=== PATIENT | female | born 1945 | race Caucasian/White ===

== ENCOUNTER 2019-08-24 11:43 | Emergency (ER) | payer MEDICARE, SELFPAY ==
--- NOTE | ~2019-08-24 | XR_ITS ---
EXAMINATION: XR chest 2V 08/24/2019 12:51 INDICATION: Shortness of breath and cough PROCEDURE: PA and lateral views of the chest COMPARISON: Comparison to multiple prior studies sequentially, with oldest reviewed study dated 09/2013. FINDINGS: The lungs are clear. The cardiomediastinal silhouette is within normal limits. There are no pleural effusions. There is no pneumothorax suspected. The lungs are hyperinflated which is consistent with, but not diagnostic of chronic obstructive pulmo nary disease. IMPRESSION: 1: NO ACUTE CARDIOPULMONARY DISEASE. Reviewed, dictated and finalized at location A.
--- NOTE | ~2019-08-24 | CT_ITS ---
EXAMINATION: CT cervical spine wo con DATE: 08/24/2019 14:45 INDICATION: Left-sided cervical radiculopathy. Left arm tingling. TECHNIQUE: Computed tomography (CT) of the cervical spine was performed without intravenous contrast. Automated exposure control and iterative reconstruction technique were employed. The dose-length pro duct was 131.82 mGy-cm. COMPARISON: None FINDINGS: The visualized portions of the lung apices demonstrate emphysema. There is 3 degrees dextro curvature of cervical spine. Vertebral body heights and intervertebral disc heights are normal. The f ollowing disc levels are specifically discussed: C2-C3: There is mild bilateral uncovertebral joint osteoarthritis. There is severe bilateral facet thuan int osteoarthritis. There is no neural foraminal stenosis. There is no central canal stenosis. C3-C4: There is mild bilateral uncovertebral joint osteoarthritis. There is mild bilateral facet join t osteoarthritis. There is no neural foraminal stenosis. There is no central canal stenosis. C4-C5: There is no uncovertebral joint osteoarthritis. There is moderate left facet joint osteoarthri tis. There is no neural foraminal stenosis. There is no central canal stenosis. C5-C6: There is no uncovertebral joint osteoarthritis. There is moderate right and mild left facet thuan int osteoarthritis. There is no neural foraminal stenosis. There is no central canal stenosis. C6-C7: There is no uncovertebral joint osteoarthritis. There is mild bilateral facet joint osteoarthr itis. There is no neural foraminal stenosis. There is no central canal stenosis. C7-T1: There is no uncovertebral joint osteoarthritis. There is mild bilateral facet joint osteoarthr itis. There is no neural foraminal stenosis. There is no central canal stenosis. IMPRESSION: 1. Mild cervical spondylosis. Reviewed, dictated and finalized at location A.
[2019-08-24 12:13] VITALS: BP 142/62; PULSE 72; RESP 18; TEMP 36.7; O2SAT 100
[2019-08-24 12:52] LABS: Basophils Absolute Auto 0.1 K/mm3 (0.0-0.1); Basophils Percent Auto 0.7 % (0.2-1.2); Eosinophils Absolute Auto 0.2 K/mm3 (0-0.3); Eosinophils Percent Auto 2.4 % (0-4.4); Hematocrit 44.4 % (37.0-47.0); Hemoglobin 13.9 g/dL (12.0-15.0); Immature Granulocyte Absolute 0.01 K/mm3 (0.00-0.031); Immature Granulocyte Percent A 0.1 % (0-0.5); Lymphocytes Absolute Auto 2.63 K/mm3 (0.9-3.2); Lymphocytes Percent Auto 34.5 % (18.3-44.2); Mean Corpuscular HGB Conc 31.3 g/dl (32-36); Mean Corpuscular Hemoglobin 28.4 pg (26-34); Mean Corpuscular Volume 90.8 fl (80-100); Mean Platelet Volume 9.5 fl (7.4-10.4); Monocytes Absolute Auto 0.4 K/mm3 (0.1-0.6); Monocytes Percent Auto 5.6 % (2.6-8.5); Neutrophils Absolute Auto 4.3 K/mm3 (1.3-6.7); Neutrophils Percent Auto 56.7 % (45.5-73.1); Platelet Count Result 246 k/mm3 (150-375); Red Blood Count 4.89 M/mm3 (4.2-5.4); Red Cell Distribution Width 14.6 % (11.5-14.5); White Blood Count 7.6 K/mm3 (4.5-10.0)
[2019-08-24 13:04] LABS: Blood Urea Nitrogen 23 mg/dL (7-17); Calcium 9.7 mg/dL (8.4-10.2); Carbon Dioxide 28 mmol/L (22-30); Chloride 103 mmol/L (98-107); Estimated CRCL calculation 44 ml/min; Estimated Glomerular Filt Rate > 60; Glucose 102 mg/dL (65-105); Lactic Acid Reflex 0.8 mmol/L (0.7-2.1); Potassium 4.2 mmol/L (3.4-5.0); Sodium 141 mmol/L (137-145)
--- NOTE | 2019-08-24 13:17 | ECG_ITS ---
Measurements Intervals [place] Rate: 58 P: 64 MI: 157 QRS: 67 QRSD: 78 T: 70 QT: 412 QTc: 405 Interpretive Statements SINUS BRADYCARDIA BORDERLINE ECG Electronically Signed On 08-24-2019 14:04:38 CDT by Hossein Xie D.O.
--- NOTE | 2019-08-24 14:25 | PC.NURSE ---
called lab to add-on trop baseline
[2019-08-24 14:44] LABS: Troponin I < 0.012 ng/mL (0.000-0.034)
--- NOTE | 2019-08-24 15:39 | ED.GENADULT ---
HPI - General Adult General Chief complaint: Extremity Problem,Nontraumatic <Uzma Conner PA-C - Last Filed: 08/24/19 15:48> Stated complaint: tingleing in arm and head <JENNIFER Casiano Last Filed: 08/24/19 15:48> Time Seen by Provider: 08/24/19 12:53 <JENNIFER Casiano Last Filed: 08/24/19 15:48> Source: patient <JENNIFER Casiano Last Filed: 08/24/19 15:48> Mode of arrival: ambulatory <JENNIFER Casiano Last Filed: 08/24/19 15:48> Limitations: no limitations <JENNIFER Casiano Last Filed: 08/24/19 15:48> History of Present Illness HPI narrative: Patient presents with chief complaint of cough that has been progressively worsened over the past week. Patient states originally it was dry but now is been productive. Patient was seen at the urgent care diagnosed with a left lower lobe pneumonia. Patient states that she mentioned having intermittent tingling to her left arm of the past 2 to 3 weeks so she was directed to come to the emergency department for further evaluation. Patient denies any chest pain shortness of breath, radiation of pain into her jaw loss range of motion to her extremity or any other symptoms. Patient denies any fever, chills, nausea, vomiting, diarrhea. Patient denies any direct injury to her C-spine. <Uzma Conner PA-C - Last Filed: 08/24/19 15:48> Related Data Allergies/adverse reactions: Allergies Allergy/AdvReac Type Severity Reaction Status Date / Time fluoxetine Allergy Unknown Skin Verified 08/24/19 12:26 Reaction ibandronate sodium Allergy Unknown Unknown Verified 08/24/19 12:26 No Known Drug Allergies Allergy Unknown Unknown Verified 08/24/19 12:26 <Uzma Conner PA-C - Last Filed: 08/24/19 15:48> Review of Systems Review of Systems: Narrative: CONSTITUTIONAL: Denies fever, chills, or sweats. EYES: Denies visual changes, redness, or discharge. ENT: Reports congestion denies rhinorrhea, sore throat, or otalgia. CARDIOVASCULAR: Denies chest pain, palpitations, or edema. RESPIRATORY: Reportsl cough denies dyspnea. GASTROINTESTINAL: Denies abdominal pain, nausea, vomiting, or diarrhea. GENITOURINARY: Denies dysuria or hematuria. SKIN: Denies rash or itching. MUSCULOSKELETAL: Tingling to left arm denies back pain, joint pain, or myalgia. NEUROLOGIC: Denies headache, numbness, dizziness, or weakness. PSYCHIATRIC: Denies anxiety or depression. <Uzma Conner PA-C - Last Filed: 08/24/19 15:48> PMFSH Family History Family History: Family History (Updated 11/04/17 @ 10:14 by DOCTOR UNKNOWN) Father Family history of cardiovascular disease Hypertension Family history of elevated blood lipids Mother Carcinoma of colon Hypertension Family history of elevated blood lipids Other Depression <Uzma Conner PA-C - Last Filed: 08/24/19 15:48> Social History Social History: Social History Smoking status: Never smoker Alcohol intake: current <Uzma Conner PA-C - Last Filed: 08/24/19 15:48> Exam Narrative: Exam Narrative: GENERAL: Well-appearing, well-nourished, and in no acute distress. HEAD: Normocephalic, atraumatic. EYES: PERRLA and EOMI. ENT: Nares clear, no rhinorrhea or epistaxis. Mucous membranes moist. Oropharynx without tonsillar hypertrophy exudate or other lesions. Bilateral TMs pearly mi nonbulging NECK: Supple. No adenopathy or masses. No tenderness to palpation along C-spine or loss of range of motion. CHEST: Clear to auscultation. No respiratory distress. No wheezes rales or rhonchi HEART: Regular rate and rhythm. Normal peripheral pulses. EXTREMITIES: Full range of motion to left upper extremity. No loss of sensation or strength. Normal range of motion. No edema. SKIN: Warm, dry, no rash. NEURO: No focal deficits. Alert and oriented x3. PSYCH: Normal mood and affect. <Uzma Conner PA-C - Last Filed: 08/24/19 15:48> Course Vit
[2019-08-24 16:10] VITALS: BP 142/90; PULSE 84; RESP 16; O2SAT 97
== END 2019-08-24 16:11 | disposition home or self-care (01) ==
PROVIDERS: Emergency Medicine; Physician Assistant; Emergency Provider General Practice; PCP Family Medicine
DX: J18.1 Lobar pneumonia, unspecified organism (principal); M54.12 Radiculopathy, cervical region
CPT/HCPCS: 36415; 71046; 72125; 80048; 83605; 84484; 85025; 87040; 93005; 99284

== ENCOUNTER 2019-09-09 12:02 | Emergency (ER) | payer MEDICARE, SELFPAY ==
--- NOTE | ~2019-09-09 | XR_ITS ---
EXAMINATION: XR chest 1V portable 09/09/2019 12:38 INDICATION: Cough PROCEDURE: AP portable chest COMPARISON: Comparison to multiple prior studies sequentially, with oldest reviewed study dated 01/09. FINDINGS: The lungs are clear. The cardiomediastinal silhouette is within normal limits. There are no pleural effusions. There is no pneumothorax suspected. The lungs are hyperinflated which is cons istent with, but not diagnostic of chronic obstructive pulmonary disease. IMPRESSION: 1: NO ACUTE CARDIOPULMONARY DISEASE. Reviewed, dictated and finalized at location A.
--- NOTE | ~2019-09-09 | CT_ITS ---
EXAMINATION: CT abdomen pelvis w con INDICATION: Upper abdominal pain TECHNIQUE: Computed tomographic images of the abdomen and pelvis were obtained after the administrati on of 100 cc of Omnipaque 350 intravenous contrast. The dose-length product (DLP) was 165.91 mGy-cm. Automated exposure control and iterative reconstruction technique were employed. COMPARISON: 09/17/2018 FINDINGS: The lung bases are clear. The heart size is normal. Again noted is a small sliding hiatal h ernia with fluid present in the distal esophagus. There appears to be mild, chronic wall thickening o f the distal esophagus. The liver, spleen, pancreas, and gallbladder are normal. The right adrenal gl and is unremarkable. There is an unchanged 10 mm nodule of the left adrenal gland, likely adenoma. Th ere is a 2.5 x 1.9 cm enlarged lymph node with apparent central necrosis medial to the left adrenal g land. Cysts of the kidneys measure up to 4.2 cm on the left. There is calcified atherosclerosis of th e aorta and many of the other arteries. There are no dilated loops of bowel. There is liquid stool th roughout the colon to the level of the rectum IMPRESSION: 1. Chronic mild wall thickening of the distal esophagus which contains a small amount of fluid. 2. 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 3. CT findings consistent with diarrhea. Reviewed, dictated and finalized at location B. IMPRESSION: 1. Chronic mild wall thickening of the distal esophagus which contains a small amount of fluid. 2. Enlarged and necrotic lymph node medial to the left adrenal gland, likely re flecting metastatic disease of unknown primary. 3. CT findings consistent with diarrhea.
--- NOTE | 2019-09-09 12:10 | ECG_ITS ---
Measurements Intervals [place] Rate: 91 P: 75 ME: 148 QRS: 73 QRSD: 85 T: 67 QT: 351 QTc: 433 Interpretive Statements SINUS RHYTHM POSSIBLE LEFT ATRIAL ENLARGEMENT BASELINE WANDER- I, II, V4-V6 BORDERLINE ECG Electronically Signed On 09-09-2019 14:13:39 CDT by Hossein Xie D.O.
[2019-09-09 12:13] VITALS: BP 153/79; PULSE 93; RESP 20; TEMP 36.9; O2SAT 99
--- NOTE | 2019-09-09 12:14 | ED.GENADULT ---
HPI - General Adult General Chief complaint: GI Bleed Stated complaint: COUGH, CONGESTION Time Seen by Provider: 09/09/19 12:06 Source: patient and RN notes reviewed Mode of arrival: ambulatory Limitations: no limitations History of Present Illness HPI narrative: Pt is a 74 y/o female who presents to the ED with c/o dark stools. She notes that she has recently been having coffee ground appearing stools. Pt states that she has also had recent chest pressure and SOB, but denies any current chest pain, ABD pain, nausea, vomiting, or sweats. She notes that she has had a relatively constant cough since being diagnosed with pneumonia in the [facility] ED roughly 3 weeks ago. Pt states that she was evaluated by her PCP, Dr. Avitia, earlier today, and notes that she was sent to the ED to rule out a GI bleed. Patient denies any shortness of breath currently. No fever. MD complaint: Dark Stools Associated symptoms: cough, shortness of breath and other (chest pressure) Related Data Home Medications Medication Instructions Recorded Confirmed alprazolam 0.25 mg PO HS 09/09/19 Allergies Allergy/AdvReac Type Severity Reaction Status Date / Time fluoxetine Allergy Unknown Skin Verified 08/26/19 09:59 Reaction ibandronate sodium Allergy Unknown Unknown Verified 08/26/19 09:59 Review of Systems Review of Systems: Narrative: CONSTITUTIONAL: Denies fever, chills, or sweats. CARDIOVASCULAR: Denies palpitations or edema. History of chest pressure, no current chest pain or pressure. RESPIRATORY: Reports cough, no current shortness of breath GASTROINTESTINAL: Denies abdominal pain, nausea, or vomiting Reports dark stools. GENITOURINARY: Denies dysuria or hematuria. Neuro: No numbness or weakness Skin: No rashes or swelling All systems reviewed & are unremarkable except as noted in HPI and below PMFSH Past Medical History Medical History (Updated 09/09/19 @ 14:53 by Candy Murillo MD) Age-related osteoporosis without current pathological fracture Arthritis Cataracts, bilateral Gastro-esophageal reflux disease with esophagitis Gastrointestinal ulcer HTN (hypertension), benign Pneumonia Uterine fibroid UTI (urinary tract infection) Surgical History Surgical History History of esophageal surgery History of hysterectomy Hx of shoulder surgery lt shoulder Hx of tonsillectomy Social History Social History (Updated 09/09/19 @ 12:33 by Phong Carroll) Smoking status: Current every day smoker Alcohol intake: current Gender identity (if verbalized by the patient): Female Exam Narrative: Exam Narrative: GENERAL: Well-appearing, well-nourished, and in no acute distress. HEAD: Normocephalic, atraumatic. EYES: PERRLA and EOMI. ENT: Nares clear, no rhinorrhea or epistaxis. Mucous membranes moist. NECK: Supple. CHEST: Clear to auscultation. No respiratory distress. Chest wall tenderness. HEART: Regular rate and rhythm. No murmur heard. Normal peripheral pulses. ABDOMEN: Soft, nontender, nondistended, normal active bowel sounds. EXTREMITIES: Normal range of motion. No edema. SKIN: Warm, dry, no rash. NEURO: No focal deficits. Alert and oriented. Course Course Emergency Course: Patient presents to the emergency department for evaluation bloody stools, tachycardia per her primary care physician. At the time of initial assessment, ABCs are intact, vital signs are stable. Patient is not tachycardic or hypotensive. Fecal occult blood test is positive. No melena. Patient's hemoglobin is actually very stable at 13.9. No elevation in troponin. Chest x-ray shows no evidence of pneumonia. Patient without any typical anginal symptoms. No pleuritic chest pain or dyspnea with exertion that would be concerning for PE. CT abdomen/pelvis shows evidence of possible necrotic lymph node, no evidence of mass, perforation, patient has evidence of achalasia which is chronic for her. I spoke wit
[2019-09-09] MEDS: PANTOPRAZOLE SODIUM IV 40 MG VIAL IV PUSH (12:31)
[2019-09-09] MEDS: ONDANSETRON INJ 4 MG/2 ML VIAL IV PUSH (12:31)
[2019-09-09] MEDS: SODIUM CHLORIDE 0.9% IV 1,000 ML 999 ML IV CONT (12:32)
[2019-09-09 12:51] LABS: Basophils Absolute Auto 0.1 K/mm3 (0.0-0.1); Basophils Percent Auto 0.5 % (0.2-1.2); Eosinophils Absolute Auto 0.1 K/mm3 (0-0.3); Eosinophils Percent Auto 0.8 % (0-4.4); Hematocrit 44.2 % (37.0-47.0); Hemoglobin 13.9 g/dL (12.0-15.0); Immature Granulocyte Absolute 0.02 K/mm3 (0.00-0.031); Immature Granulocyte Percent A 0.2 % (0-0.5); Lymphocytes Absolute Auto 2.76 K/mm3 (0.9-3.2); Lymphocytes Percent Auto 28.2 % (18.3-44.2); Mean Corpuscular HGB Conc 31.4 g/dl (32-36); Mean Corpuscular Volume 88.9 fl (80-100); Monocytes Absolute Auto 0.7 K/mm3 (0.1-0.6); Monocytes Percent Auto 7.5 % (2.6-8.5); Neutrophils Absolute Auto 6.1 K/mm3 (1.3-6.7); Neutrophils Percent Auto 62.8 % (45.5-73.1); Platelet Count Result 273 k/mm3 (150-375); Red Blood Count 4.97 M/mm3 (4.2-5.4); Red Cell Distribution Width 14.5 % (11.5-14.5); White Blood Count 9.8 K/mm3 (4.5-10.0)
[2019-09-09 13:06] LABS: Blood Urea Nitrogen 22 mg/dL (7-17); Calcium 9.8 mg/dL (8.4-10.2); Carbon Dioxide 26 mmol/L (22-30); Chloride 104 mmol/L (98-107); Estimated CRCL calculation 39 ml/min; Estimated Glomerular Filt Rate > 60; Glucose 118 mg/dL (65-105); Sodium 137 mmol/L (137-145)
[2019-09-09 13:18] LABS: Troponin I < 0.012 ng/mL (0.000-0.034)
[2019-09-09 13:22] LABS: Prothrombin Time 12.5 Seconds (11.1-14.7)
[2019-09-09 13:23] LABS: Partial Thromboplastin Time 24.8 SECONDS (22.3-36.8)
[2019-09-09 13:43] VITALS: BP 142/70; PULSE 75; RESP 20; O2SAT 99
[2019-09-09 15:37] VITALS: BP 135/75; PULSE 79; RESP 23; O2SAT 98
== END 2019-09-09 15:42 | disposition home or self-care (01) ==
PROVIDERS: Emergency Provider Emergency Medicine; PCP Family Medicine
DX: K62.5 Hemorrhage of anus and rectum (principal); M81.0 Age-related osteoporosis without current pathological fracture; M19.90 Unspecified osteoarthritis, unspecified site; H26.9 Unspecified cataract; I10 Essential (primary) hypertension; Z87.440 Personal history of urinary (tract) infections; F17.200 Nicotine dependence, unspecified, uncomplicated; R93.3 Abnormal findings on diagnostic imaging of other parts of digestive tract; R59.9 Enlarged lymph nodes, unspecified
CPT/HCPCS: 36415; 71045; 74177; 80048; 84484; 85025; 85610; 85730; 86850; 86900; 86901; 93005; 96361; 96374; 96375; 99284; C9113; J2405; J7030; Q9967

== ENCOUNTER 2019-09-17 09:15 | Outpatient (CLI) | payer MEDICARE, SELFPAY ==
[2019-09-14 15:35] VITALS: BMI 19.4
[2019-09-17 09:55] LABS: Mean Platelet Volume 9.5 fl (7.4-10.4); Platelet Count Result 321 k/mm3 (150-375)
[2019-09-17 10:05] LABS: INR 0.9; Prothrombin Time 12.2 Seconds (11.1-14.7)
== END 2019-09-17 09:16 | disposition home or self-care (01) ==
LOC: ANHSURGERY 09:17 → ANHIMG 09:22
PROVIDERS: PCP Family Medicine; Visit Provider Family Medicine
DX: R59.0 Localized enlarged lymph nodes (principal)
CPT/HCPCS: 36415; 85049; 85610

== ENCOUNTER 2019-09-18 08:58 | Outpatient (CLI) | payer MEDICARE, SELFPAY ==
[2019-09-18] VITALS (11 sets, daily range): BP systolic 93–130; BP diastolic 50–81; PULSE 52–81; RESP 16–19; TEMP 36.9–37; O2SAT 100
--- NOTE | ~2019-09-18 | CT_ITS ---
EXAMINATION: CT biopsy lymph node DATE: 09/18/2019 10:58 INDICATION: Retroperitoneal mass. TECHNIQUE: The procedure including the risks, benefits, and alternatives was discussed with the patie nt. Risks discussed included bleeding and infection. The patient verbalized understanding of the risk s and agreed to proceed. The skin overlying the retroperitoneum was prepped and draped in usual ster ile fashion. Anesthetic was administered with 1% lidocaine subcutaneously. A 19 gauge outer needle was advanced under CT guidance adjacent to the retroperitoneal mass. An 20 gauge core biopsy needle w as then used to obtain 3 core biopsy specimens. The mA was adjusted according to patient size. Iterat dangelo reconstruction technique was employed. The dose-length product was 165.83 mGy-cm. The needle was removed and the entry site was cleaned and dressed. There were no immediate complications. FINDINGS: CT images demonstrate the outer needle tip adjacent to a 2.5 x 2.0 cm retroperitoneal mass. IMPRESSION: 1. CT-guided core needle biopsy of a retroperitoneal mass. Reviewed, dictated and finalized at location A.
--- NOTE | 2019-09-18 13:57 | SUR.PHASEII ---
Call to Dr Miller- updated on patient status and patient request to go home- MD states okay to go home. IV discontinued. VSS. Denies pain. No change in dressing. Discharge instructions given, questions answered. No acute distress noted.
== END 2019-09-18 08:59 | disposition home or self-care (01) ==
LOC: SURGERY 09:23 → ANHSURGERY 09:24
PROVIDERS: Radiology Diagnostic Radiology; PCP Family Medicine; Visit Provider Family Medicine
DX: R59.0 Localized enlarged lymph nodes (principal)
CPT/HCPCS: 38505; 77012; 88305; 88342

== ENCOUNTER 2020-01-31 17:45 | Observation (INO) | payer MEDICARE, SELFPAY ==
--- NOTE | ~2020-01-31 | XR_ITS ---
EXAMINATION: XR chest 1V portable EXAM DATE: 02/02/2020 13:07 INDICATION: Nausea vomiting, postoperative abdominal pain. TECHNIQUE: Frontal projection(s) of the abdomen for interpretation. Comparison is made to prior exami nation from 09/09/2019. FINDINGS: Moderate chronic hyperinflation. There is extensive subcutaneous gas throughout the thorax and neck. No confluent consolidation, pneumothorax or pleural effusion suspected. Cardiomediastinal silhouette is normal. There are no osseous abnormalities identified. IMPRESSION: Extensive subcutaneous gas throughout thorax, neck. Reviewed, dictated and finalized at location B.
--- NOTE | ~2020-01-31 | CT_ITS ---
EXAMINATION: CT abdomen pelvis w con DATE: 01/31/2020 19:02 INDICATION: Postoperative abdominal pain; kidney tumor removal. TECHNIQUE: Computed tomography (CT) of the abdomen and pelvis was performed with 100 cc Omnipaque 350 intravenous contrast. Automated exposure control and iterative reconstruction technique were employe d. Exam dose: 170.11 mGy-cm total exam DLP. COMPARISON: 09/17/2018 CT abdomen pelvis FINDINGS: There is extensive subcutaneous emphysema of the chest, abdominal and pelvic aponte, extendi ng into the included groin areas and pubic region. There is moderate air in the urinary bladder lumen. There is intraperitoneal free air, left retroperitoneal free air. Normal heart size. Fluid distended dilated distal esophagus. The gallbladder is distended but no gallbladder wall thickening or pericholecystic fluid or stranding is noted. No hepatic, splenic, pancreatic or right adrenal space-occupying mass lesion is evident. T he left adrenal gland is not detected. There is emphysema in the left adrenal region. 8 mm right renal cyst. 4 cm left renal cyst. No other renal mass lesion or urinary tract calculus or hydroureteronephrosis is evident. There is extensive calcification of the abdominal aorta, prominent calcification at the origins of th e renal arteries. No abdominal aortic aneurysm. No intraperitoneal or retroperitoneal or pelvic mass lesion or adenopathy or ascites. There are air-fluid levels in the colon consistent with diarrhea and/or enteritis. No bowel obstructi on, bowel wall thickening. Degenerative disc disease at L4-5. No suspicious osteolytic or osteoblastic lesions are noted. IMPRESSION: Extensive subcutaneous emphysema of the chest, abdominal and pelvic aponte Intraperitoneal and retroperitoneal free air Air in the bladder lumen Fluid-filled dilated distal esophagus Bilateral renal cysts Reviewed, dictated and finalized at Location A. Reviewed, dictated and finalized at location A. IMPRESSION: Extensive subcutaneous emphysema of the chest, abdominal and pelvi c aponte Intraperitoneal and retroperitoneal free air Air in the bladder lumen Fluid-filled dilated distal esophagus Bilateral renal cysts
[2020-01-31 17:57] VITALS: BP 118/87; PULSE 117; RESP 20; TEMP 37.2; O2SAT 99
--- NOTE | 2020-01-31 18:14 | ED.GENADULT ---
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 Patient been taking [place] without any improvement. Complaining of abdominal pain at the site of surgery. Patient denies any fever, chills, nausea, vomiting, diarrhea, constipation. Related Data Home Medications Medication Instructions Recorded Confirmed alprazolam 0.25 mg PO HS 09/09/19 09/14/19 melatonin 10 mg PO HS PRN 09/14/19 09/14/19 sucralfate [Carafate] 2 g PO BID 09/14/19 09/14/19 nebivolol 5 mg tablet 5 mg PO DAILY 12/30/19 hydrocodone-acetaminophen 01/31/20 01/31/20 levofloxacin 01/31/20 Allergies Allergy/AdvReac Type Severity Reaction Status Date / Time No Known Allergies Allergy Verified 01/31/20 18:02 Review of Systems Review of Systems: Narrative: CONSTITUTIONAL: Denies fever, chills, or sweats. EYES: Denies visual changes, redness, or discharge. ENT: Denies rhinorrhea, congestion, sore throat, or otalgia. CARDIOVASCULAR: Denies chest pain, palpitations, or edema. RESPIRATORY: Denies cough or dyspnea. GASTROINTESTINAL: Complaining of abdominal pain GENITOURINARY: Denies dysuria or hematuria. SKIN: Denies rash or itching. MUSCULOSKELETAL: Denies back pain, joint pain, or myalgia. NEUROLOGIC: Denies headache, numbness, or weakness. PSYCHIATRIC: Denies anxiety or depression. [facility] Past Medical History Medical History Age-related osteoporosis without current pathological fracture Arthritis Cataracts, bilateral Esophageal stenosis Esophageal ulcer Gastro-esophageal reflux disease with esophagitis Gastrointestinal ulcer History of esophageal dilatation HTN (hypertension), benign Pneumonia Uterine fibroid UTI (urinary tract infection) Surgical History Surgical History History of esophageal surgery History of hysterectomy Hx of shoulder surgery lt shoulder Hx of tonsillectomy Family History Family History Father Family history of cardiovascular disease Hypertension Family history of elevated blood lipids Mother Carcinoma of colon Hypertension Family history of elevated blood lipids Other Depression Social History Social History Smoking status: Current every day smoker Alcohol intake: current Gender identity (if verbalized by the patient): Female Exam Narrative: Exam Narrative: General appearance: Well-developed, well-nourished, family member at the bedside Skin: Normal color, diffuse subcutaneous emphysema of the neck bilaterally, chest bilaterally, abdomen bilaterally mainly on the left side. Head: Normocephalic, nontraumatic Eyes: Clear conjunctiva ENT: Oropharynx normal, ears normal, nose normal Neck: Supple, nontender Chest and respiratory: Airway patent, no respiratory distress, no accessory muscle use Heart: Regular rate/rhythm Abdomen: Soft, diffuse tenderness, surgical scar clean and dry Vascular: Normal peripheral pulses, normal capillary refill. 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
[2020-01-31 18:32] LABS: Basophils Percent Auto 0.1 % (0.2-1.2); Eosinophils Absolute Auto 0.1 K/mm3 (0-0.3); Eosinophils Percent Auto 1.4 % (0-4.4); Hematocrit 33.5 % (37.0-47.0); Hemoglobin 10.7 g/dL (12.0-15.0); Immature Granulocyte Absolute 0.04 K/mm3 (0.00-0.031); Immature Granulocyte Percent A 0.4 % (0-0.5); Lymphocytes Absolute Auto 1.32 K/mm3 (0.9-3.2); Lymphocytes Percent Auto 13.2 % (18.3-44.2); Mean Corpuscular HGB Conc 31.9 g/dl (32-36); Mean Corpuscular Hemoglobin 27.6 pg (26-34); Mean Corpuscular Volume 86.3 fl (80-100); Mean Platelet Volume 9.9 fl (7.4-10.4); Monocytes Absolute Auto 0.7 K/mm3 (0.1-0.6); Monocytes Percent Auto 6.6 % (2.6-8.5); Neutrophils Absolute Auto 7.9 K/mm3 (1.3-6.7); Neutrophils Percent Auto 78.3 % (45.5-73.1); Platelet Count Result 184 k/mm3 (150-375); Red Blood Count 3.88 M/mm3 (4.2-5.4); Red Cell Distribution Width 15.9 % (11.5-14.5)
[2020-01-31] MEDS: MORPHINE SULFATE 4 MG/ML INJ IV PUSH ×2 (18:38→22:29)
[2020-01-31] MEDS: SODIUM CHLORIDE 0.9% IV 1,000 ML 30 ML IV CONT (18:38)
[2020-01-31] MEDS: ONDANSETRON INJ 4 MG/2 ML VIAL IV PUSH (18:39)
[2020-01-31 18:44] LABS: Alanine Aminotransferase 20 U/L (4-35); Albumin Level 3.5 g/dL (3.5-5.1); Alkaline Phosphatase 77 U/L (38-126); Anion Gap 6 mmol/L (8-16); Aspartate Amino Transferase 29 U/L (14-36); Bilirubin,Total 0.5 mg/dL (0.2-1.3); Blood Urea Nitrogen 13 mg/dL (7-17); Calcium 9.1 mg/dL (8.4-10.2); Carbon Dioxide 24 mmol/L (22-30); Chloride 103 mmol/L (98-107); Estimated CRCL calculation 45 ml/min; Estimated Glomerular Filt Rate > 60; Glucose 107 mg/dL (65-105); Lipase 18 U/L (23-300); Potassium 3.7 mmol/L (3.4-5.0); Sodium 133 mmol/L (137-145)
[2020-01-31 19:46] LABS: Add Urine Microscopic? YES; Appearance Urine Clear (Clear); Bilirubin Urine Negative (Negative); Blood Urine 1+ (Negative); Color Urine Colorless (Yellow); Glucose Urine UA 1+ mg/dL (Negative); Ketones Urine Trace mg/dL (Negative); Leukocyte Esterase Ur Negative LEU/UL (Negative); Nitrate Urine Negative (Negative); Protein Urine Negative (Negative); RBC Urine 0-2 /hpf (0-2); Specific Grav Ur 1.029 (1.001-1.035); Squamous Epithelial Cell Urine Rare /hpf (Few); Urobilinogen Urine Negative mg/dL (<2.0); WBC Urine 0-3 /hpf
[2020-01-31 21:44] VITALS: BP 120/80; PULSE 80; RESP 18; O2SAT 99
[2020-01-31 22:04] VITALS: BP 119/73; PULSE 104; RESP 20; TEMP 37.1; O2SAT 98; BMI 19.8
[2020-01-31] MEDS: SODIUM CHLORIDE 0.9% IV 1,000 ML 75 ML IV CONT ×2 (22:30→22:40)
--- NOTE | 2020-01-31 22:55 | ADMGEN ---
This patient, Cathi Funez, was admitted to [facility] S[facility] Room 321-02. Patient/family oriented to hospital policies and general routines including ID bracelet, bed and alarms, visiting hours, pain management, procedures, bathroom and other care routines, personal items, smoking policy, room service/diet, and visiting hours. Valuables list has been completed. Information on how to activate the Rapid Response Team has been discussed. Patient/Family are encouraged to report perceived risks to care and to ask questions if they do not understand what they are told or what they should do.
[2020-02-01] MEDS: MORPHINE SULFATE 4 MG/ML INJ IV PUSH ×4 (03:24→22:15)
[2020-02-01] MEDS: ONDANSETRON INJ 4 MG/2 ML VIAL IV PUSH (05:55)
[2020-02-01 06:00] VITALS: BP 136/75; PULSE 121; RESP 16; TEMP 37.2; O2SAT 97
[2020-02-01 13:07] VITALS: BMI 19.8
[2020-02-01] MEDS: SODIUM CHLORIDE 0.9% IV 1,000 ML 75 ML IV CONT (13:21)
[2020-02-01 14:00] VITALS: BP 142/74; PULSE 109; RESP 16; TEMP 36.3; O2SAT 96
--- NOTE | 2020-02-01 14:16 | WPDURCON ---
Assessment and Plan Assessment and plan (1) Acute postoperative abdominal pain: Code(s): G89.18 - Other acute postprocedural pain; R10.9 - Unspecified abdominal pain Status: Acute Assessment and Plan: Will discuss with Dr. Guevara/Dr. Raphael. Imaging, blood work and incisions all look normal. I suspect this is intolerable incisional pain and/or musculoskeletal pain s/p adrenal gland mass removal. Urology Consult Note HPI Date Seen: 02/01/20 Requesting Physician: Chirag Hu MD Primary Care Provider: Zacarias Avitia MD Consult Narrative Narrative: Cathi Funez is a 74 year old female who presented to the ER yesterday for worsening abdominal pain s/p adrenal mass removal with Dr. Kenny Guevara at [facility] on 01/29/2020. She denies difficulty with bowel movement, nausea or vomiting since surgery and was tolerating diet fine afterward. She was discharged from [facility] on 01/30/2020 and was reportedly doing well by Dr. Guevara. She denies hematuria, dysuria, flank pain, fever or chills. Her UA here shows 1+ blood, otherwise is normal. WBC is 10,000 and creatinine 0.70, both stable. Her H&H is slightly low but not concerning as she is a post operative patient. She is also afebrile. CT scan shows Extensive subcutaneous emphysema of the chest, abdominal and pelvic aponte,Intraperitoneal and retroperitoneal free air, Air in the bladder lumen, Fluid-filled dilated distal esophagus, Bilateral renal cysts. All urologic findings are normal. Review of Systems Cardiovascular: Cardiovascular: Denies chest pain Respiratory: Respiratory: Reports no additional respiratory complaints Gastrointestinal: Gastrointestinal: Reports abdominal pain, Denies nausea and Denies vomiting Genitourinary: Genitourinary: Denies hematuria, Denies dysuria, Denies pelvic pain and Denies flank pain PMFSH Past Medical History Medical History Age-related osteoporosis without current pathological fracture Arthritis Cataracts, bilateral Esophageal stenosis Esophageal ulcer Gastro-esophageal reflux disease with esophagitis Gastrointestinal ulcer History of esophageal dilatation HTN (hypertension), benign Pneumonia Uterine fibroid UTI (urinary tract infection) Surgical History Surgical History History of esophageal surgery History of hysterectomy Hx of shoulder surgery lt shoulder Hx of tonsillectomy Family History Family History Father Family history of cardiovascular disease Hypertension Family history of elevated blood lipids Mother Carcinoma of colon Hypertension Family history of elevated blood lipids Other Depression Social History Social History Smoking packs per day: 0.75 Smoking cigarettes per day: 15.0 Years smoked: 56 Smoking pack-years: 42.00 Smoking status: Current every day smoker Tobacco type: cigarettes Smoking end date: 01/28/20 Additional smoking assessment comments: Trying to quit. Last cigarette was last Saturday or . Alcohol intake: never Substance use: never Substance use type: does not use Living arrangements: with family Occupation/Education: retired Gender identity (if verbalized by the patient): Female Sexual Orientation (if Verbalized by the Patient): Straight or Heterosexual Spiritual care concerns: No Agree to blood products: No Meds Home Medications and Allergies Home Medications Medication Instructions Recorded Confirmed Type amlodipine 10 mg tablet 10 mg PO BID #90 tablet 04/29/19 01/31/20 Rx propranolol 10 mg tablet 10 mg PO Q12H #180 tablet 07/15/19 01/31/20 Rx sertraline 100 mg tablet 100 mg PO DAILY #90 tablet 07/15/19 01/31/20 Rx alprazolam 0.25 mg PO HS 09/09/1901/15
--- NOTE | 2020-02-01 14:38 | PM.IMHP ---
H&P: HPI History of Present Illness Date/Time: 02/01/20 14:38 Chief complaint: Postoperative abdominal pain Narrative: Cathi Funez is a 74 year old female. She is a patient of my partner Dr. Kenny argueta. She underwent a left adrenalectomy on Saturday. She was sent home on Saturday in stable condition. she did well until Saturday afternoon which he developed worsening abdominal pain. She presented to the emergency room. CT scan was unrevealing. She denied any trouble voiding. She has not had a bowel movement yet. She is not having nausea or vomiting. She is not having fevers or chills. She currently feels improved and would like to start a diet. Review of Systems Review of Systems: All systems reviewed & are unremarkable except as noted in HPI and below Constitutional: Constitutional: Reports fatigue and Reports lethargy Respiratory: Respiratory: Denies dyspnea Gastrointestinal: Gastrointestinal: Reports abdominal pain PMFSH Past Medical History Medical History Age-related osteoporosis without current pathological fracture Arthritis Cataracts, bilateral Esophageal stenosis Esophageal ulcer Gastro-esophageal reflux disease with esophagitis Gastrointestinal ulcer History of esophageal dilatation HTN (hypertension), benign Pneumonia Uterine fibroid UTI (urinary tract infection) Surgical History Surgical History History of esophageal surgery History of hysterectomy Hx of shoulder surgery lt shoulder Hx of tonsillectomy Family History Family History Father Family history of cardiovascular disease Hypertension Family history of elevated blood lipids Mother Carcinoma of colon Hypertension Family history of elevated blood lipids Other Depression Social History Social History Smoking packs per day: 0.75 Smoking cigarettes per day: 15.0 Years smoked: 56 Smoking pack-years: 42.00 Smoking status: Current every day smoker Tobacco type: cigarettes Smoking end date: 01/28/20 Additional smoking assessment comments: Trying to quit. Last cigarette was last Saturday or . Alcohol intake: never Substance use: never Substance use type: does not use Living arrangements: with family Occupation/Education: retired Gender identity (if verbalized by the patient): Female Sexual Orientation (if Verbalized by the Patient): Straight or Heterosexual Spiritual care concerns: No Agree to blood products: No Meds Home Medications and Allergies Home Medications Medication Instructions Recorded Confirmed Type amlodipine 10 mg tablet 10 mg PO BID #90 tablet 04/29/19 01/31/20 Rx propranolol 10 mg tablet 10 mg PO Q12H #180 tablet 07/15/19 01/31/20 Rx sertraline 100 mg tablet 100 mg PO DAILY #90 tablet 07/15/19 01/31/20 Rx alprazolam 0.25 mg PO HS 09/09/19 01/31/20 History esomeprazole magnesium 40 mg 40 mg PO DAILY #90 cap 09/11/19 01/31/20 Rx capsule,delayed release melatonin 10 mg PO HS PRN 09/14/19 01/31/20 History atorvastatin 10 mg tablet 10 mg PO HS #90 tablet 10/06/19 01/31/20 Rx lisinopril 10 mg tablet 10 mg PO DAILY #90 tablet 10/06/19 01/31/20 Rx alprazolam 0.25 mg tablet 0.25 mg PO TID PRN #30 tablet 12/16/19 01/31/20 Rx amitriptyline 10 mg tablet 30 mg PO .qhs #270 tablet 12/30/19 01/31/20 Rx nebivolol 5 mg tablet 5 mg PO DAILY 12/30/19 01/31/20 History hydrocodone-acetaminophen 1 tablet PO Q4H PRN 01/31/20 01/31/20 History levofloxacin 500 mg PO DAILY 01/31/20 01/31/20 History Allergies Allergy/AdvReac Type Severity Reaction Status Date / Time No Known Allergies Allergy Verified 01/31/20 18:02 Vital Signs Vital Signs - 24 hr 01/31/20 17:57 01/31/20 21:44 01/31/20 22:04 Temperature 99 F 98.7 F Puls
[2020-02-01 22:00] VITALS: BP 143/80; PULSE 114; RESP 16; TEMP 36.6; O2SAT 100
[2020-02-02] MEDS: MORPHINE SULFATE 4 MG/ML INJ IV PUSH ×2 (01:52→17:28)
[2020-02-02] MEDS: ONDANSETRON INJ 4 MG/2 ML VIAL IV PUSH (01:52)
[2020-02-02] MEDS: SODIUM CHLORIDE 0.9% IV 1,000 ML 75 ML IV CONT (01:53)
[2020-02-02 06:00] VITALS: BP 161/82; PULSE 114; RESP 16; TEMP 36.6; O2SAT 96
[2020-02-02 08:00] VITALS: PULSE 105; RESP 24; O2SAT 96
--- NOTE | 2020-02-02 09:55 | PM.IMCN ---
Assessment and Plan Assessment and plan (1) Nausea & vomiting: Code(s): R11.2 - Nausea with vomiting, unspecified <Tae Alvarado MD - Last Filed: 02/03/20 18:37> Status: Acute <Tae Alvarado MD - Last Filed: 02/03/20 18:37> Assessment and Plan: patient has developed nausea vomiting with possible coffee-ground emesis. Etiology unclear. Patient does have achalasia to explain the dilated fluid-filled esophagus on CT. N/V symptoms could be related to morphine. She has not been on her chronic benzodiazepines which could be contributing to this as well. She does have history of gastric ulcer recently diagnosed. She has had a recent surgery and is currently not on PPI treatment. Gastric ulcer may have bled. Consider also stress gastritis. No nausea at this time so will hold on NG tube placement. Will check baseline labs. Serial H& H. Add Protonix IV. GI has been consulted by admitting service. Further recommendation as course dictates. <Tae Alvarado MD - Last Filed: 02/03/20 18:37> (2) Acute postoperative abdominal pain: Code(s): G89.18 - Other acute postprocedural pain; R10.9 - Unspecified abdominal pain <Tae Alvarado MD - Last Filed: 02/03/20 18:37> Status: Acute <Tae Alvarado MD - Last Filed: 02/03/20 18:37> Assessment and Plan: Patient admitted initially for postoperative abdominal pain. CT scan showing diffuse subcutaneous emphysema but probably not contributing to pain. This symptom seems to be improving overall. Continue to monitor. <Tae Alvarado MD - Last Filed: 02/03/20 18:37> (3) Esophageal ulcer: Code(s): K22.10 - Ulcer of esophagus without bleeding <Tae Alvarado MD - Last Filed: 02/03/20 18:37> Status: Acute <Tae Alvarado MD - Last Filed: 02/03/20 18:37> Assessment and Plan: Patient had EGD on November 23 showing cratered esophageal ulcer that was nonbleeding. Biopsies were obtained. Biopsies showing esophagitis consistent with GERD. No Le's. As above. Will resume Proton pump inhibitor. <Tae Alvarado MD - Last Filed: 02/03/20 18:37> (4) Esophageal stenosis: Code(s): K22.2 - Esophageal obstruction <Tae Alvarado MD - Last Filed: 02/03/20 18:37> Status: Acute <Tae Alvarado MD - Last Filed: 02/03/20 18:37> Assessment and Plan: As above. EGD also showed fluid in the entire esophagus as well as a benign-appearing intrinsic stenosis at the GE junction which was dilated. GI has been consulted here but family is considering request to have patient return [facility]. Defer to primary team for transfer options. <Tae Alvarado MD - Last Filed: 02/03/20 18:37> (5) Emphysema (subcutaneous) (surgical) resulting from a procedure: Qualifiers: Encounter type: subsequent encounter Qualified Code(s): T81.82XD - Emphysema (subcutaneous) resulting from a procedure, subsequent encounter <Tae Alvarado MD - Last Filed: 02/03/20 18:37> Code(s): T81.82XA - Emphysema (subcutaneous) resulting from a procedure, initial encounter <Tae Alvarado MD - Last Filed: 02/03/20 18:37> Status: Acute <Tae Alvarado MD - Last Filed: 02/03/20 18:37> Assessment and Plan: Postoperative findings with significant subcutaneous emphysema. Defer to primary team. <Tae Alvarado MD - Last Filed: 02/03/20 18:37> (6) Anxiety: Code(s): F41.9 - Anxiety disorder, unspecified <Tae Alvarado MD - Last Filed: 02/03/20 18:37> Status: Acute <Tae Alvarado MD - Last Filed: 02/03/20 18:37> Assessment and Plan: Patient is calm and appropriate. Her medication lists alprazolam that she takes at night scheduled. She does not take it regularly during the day. She still may be having some withdrawal type symptoms
[2020-02-02 10:42] VITALS: BP 138/88; PULSE 105; RESP 24; TEMP 36.4
[2020-02-02 10:50] LABS: Basophils Percent Auto 0.1 % (0.2-1.2); Eosinophils Percent Auto 0.2 % (0-4.4); Hemoglobin 11.3 g/dL (12.0-15.0); Immature Granulocyte Absolute 0.03 K/mm3 (0.00-0.031); Immature Granulocyte Percent A 0.3 % (0-0.5); Lymphocytes Absolute Auto 0.69 K/mm3 (0.9-3.2); Lymphocytes Percent Auto 7.1 % (18.3-44.2); Mean Corpuscular HGB Conc 32.3 g/dl (32-36); Mean Corpuscular Hemoglobin 27.8 pg (26-34); Mean Platelet Volume 9.6 fl (7.4-10.4); Monocytes Absolute Auto 0.4 K/mm3 (0.1-0.6); Monocytes Percent Auto 3.9 % (2.6-8.5); Neutrophils Absolute Auto 8.6 K/mm3 (1.3-6.7); Neutrophils Percent Auto 88.4 % (45.5-73.1); Platelet Count Result 225 k/mm3 (150-375); Red Blood Count 4.07 M/mm3 (4.2-5.4); Red Cell Distribution Width 16.1 % (11.5-14.5); White Blood Count 9.7 K/mm3 (4.5-10.0)
[2020-02-02 10:59] LABS: Prothrombin Time 12.6 Seconds (11.1-14.7)
[2020-02-02 11:00] LABS: Partial Thromboplastin Time 24.8 SECONDS (22.3-36.8)
[2020-02-02 11:04] LABS: Alanine Aminotransferase 15 U/L (4-35); Albumin Level 3.5 g/dL (3.5-5.1); Alkaline Phosphatase 80 U/L (38-126); Anion Gap 8 mmol/L (8-16); Aspartate Amino Transferase 18 U/L (14-36); Bilirubin,Total 0.3 mg/dL (0.2-1.3); Blood Urea Nitrogen 11 mg/dL (7-17); Calcium 8.7 mg/dL (8.4-10.2); Carbon Dioxide 24 mmol/L (22-30); Chloride 101 mmol/L (98-107); Estimated CRCL calculation 66 ml/min; Estimated Glomerular Filt Rate > 60; Glucose 145 mg/dL (65-105); Lipase 17 U/L (23-300); Potassium 3.6 mmol/L (3.4-5.0); Sodium 133 mmol/L (137-145)
[2020-02-02 11:04] LABS: Lactic Acid Reflex 0.9 mmol/L (0.7-2.1)
[2020-02-02] MEDS: DEXTROSE 5%/0.45% SOD CHL 1,000 ML 100 ML (11:14)
--- NOTE | 2020-02-02 11:45 | WPDUROPN2 ---
Progress Note: A&P Assessment and Plan (1) Coffee ground vomiting: Code(s): K92.0 - Hematemesis Status: Acute Assessment and Plan: After discussion with Dr. Guevara, the patient and her daughter, we will transfer to [facility] for further evaluation and care. THe patient is also requesting to be cared for at [facility]. (2) Nausea: Code(s): R11.0 - Nausea Status: Acute (3) Hematemesis: Code(s): K92.0 - Hematemesis Status: Acute (4) History of esophageal stricture: Code(s): Z87.19 - Personal history of other diseases of the digestive system Status: Acute (5) Acute postoperative abdominal pain: Code(s): G89.18 - Other acute postprocedural pain; R10.9 - Unspecified abdominal pain Status: Acute Assessment and Plan: Pain is improved today. CT scan urologically is normal, other than benign cysts. There doesn't appear to be any post op hemorrhage, H&H is improving. The nausea and vomiting of coffee ground emesis appears to be a separate issue. Subjective Subjective Date/Time Seen: 02/02/20 11:45 POD #4 Left Adrenalectomy. Patient has developed nausea and vomiting overnight, but states abdominal pain has improved. She has coffee ground emesis and hemataemesis since she began vomiting. She has not had a BM in >4 days. As of yesterday afternoon she was doing well, tolerating her diet and denied nausea and vomiting at that time, she also stated her pain was improving. Today she is tachycardic, is afebrile and has tachypnea. She has a history of esophageal rupture and stricture and was told by her GI doctor (Jacinto Poe) to not have any intervention such as an NG tube d/t her fragile esophagus tissue. Her incisions are well approximated, abdomen is much less tender on exam today. Review of Systems Cardiovascular: Cardiovascular: Denies chest pain Respiratory: Respiratory: Reports no additional respiratory complaints Gastrointestinal: Gastrointestinal: Reports coffee ground emesis, Reports nausea, Reports vomiting and Reports hematemesis Genitourinary: Genitourinary: Reports no additional female genitourinary complaints Exam Resp: Effort & Inspection: tachypneic Cardio: Rate: tachycardic GI: Inspection: incision (well approximated, no drainage,edema or erythema) Other: patient is vomiting during exam today, she is having coffee ground emesis and hemataemesis. : General: Yes no CVA tenderness Extrem: General: no edema Objective Data Vital Signs Vital Signs: Vital Signs - 24 hr 02/01/20 14:00 02/01/20 22:00 02/02/20 06:00 Temperature 97.4 F L 97.8 F 97.9 F Pulse Rate 109 H 114 H 114 H Respiratory Rate 16 16 16 Blood Pressure 142/74 H 143/80 H 161/82 H Pulse Oximetry 96 100 96 02/02/20 08:00 02/02/20 10:42 Temperature 97.6 F Pulse Rate 105 H 105 H Respiratory Rate 24 H 24 H Blood Pressure 138/88 Pulse Oximetry 96 Intake/Output Intake/Output: Intake & Output 01/30/20 01/31/20 02/01/20 02/02/20 23:59 23:59 23:59 23:59 Intake Total 1000 2290 1290 Output Total 2600 800 Balance 1000 -310 490 Meds/Results Medications: Active Medications Generic Name Dose Route Start Last Admin Trade Name Freq PRN Reason Stop Dose Admin Sodium Chloride 1,000 mls @ 75 mls/hr 01/31/20 21:05 02/02/20 01:53 Normal Saline Iv IV CONT 75 mls/hr .[id number] IAN Administration Lorazepam 0.5 mg 02/02/20 10:37 Ativan Inj IV PUSH Q6H PRN Anxiety Metoprolol Tartrate 5 mg 02/02/20 12:00 Lopressor Inj IV PUSH Q6HR [facility] Morphine Sulfate 4 mg 01/31/20 21:04 02/02/20 01:52 Morphine Sulfate Inj IV PUSH 4 mg Q2H PRN Administration Pain Rated 7-10 Ondansetron HCl 8 mg 02/02/20 11:25 Zofran Inj IV PUSH Q4H PRN Nausea Pantoprazole Sodium 40 mg 02/02/20 21:00 Protonix Iv IV PUSH Q12HR [facility] Radiology Results: ITS Impressions Abdome
--- NOTE | 2020-02-02 12:03 | PM.TDS ---
Transfer Discharge Sum: Prov Provider Date of admission: 01/31/20 21:05 Primary care physician: Zacarias Avitia MD Admitting clinician: Chirag Hu MD DS: Admitting Diagnosis Admitting Diagnosis Admitting Diagnosis: Postoperative abdominal pain Transfer Discharge Sum: Med Medications Active and Home Medications: Home Medications amlodipine 10 mg tablet 10 mg PO BID #90 tablet 04/29/19 [Rx Confirmed 01/31/20] propranolol 10 mg tablet 10 mg PO Q12H #180 tablet 07/15/19 [Rx Confirmed 01/31/20] sertraline 100 mg tablet 100 mg PO DAILY #90 tablet 07/15/19 [Rx Confirmed 01/31/20] alprazolam 0.25 mg PO HS 09/09/19 [History Confirmed 01/31/20] esomeprazole magnesium 40 mg capsule,delayed release 40 mg PO DAILY #90 cap 09/11/19 [Rx Confirmed 01/31/20] melatonin 10 mg PO HS PRN 09/14/19 [History Confirmed 01/31/20] atorvastatin 10 mg tablet 10 mg PO HS #90 tablet 10/06/19 [Rx Confirmed 01/31/20] lisinopril 10 mg tablet 10 mg PO DAILY #90 tablet 10/06/19 [Rx Confirmed 01/31/20] alprazolam 0.25 mg tablet 0.25 mg PO TID PRN #30 tablet 12/16/19 [Rx Confirmed 01/31/20] amitriptyline 10 mg tablet 30 mg PO .qhs #270 tablet 12/30/19 [Rx Confirmed 01/31/20] nebivolol 5 mg tablet 5 mg PO DAILY 12/30/19 [History Confirmed 01/31/20] hydrocodone-acetaminophen 1 tablet PO Q4H PRN 01/31/20 [History Confirmed 01/31/20] levofloxacin 500 mg PO DAILY 01/31/20 [History Confirmed 01/31/20] Active Medications Sodium Chloride (Normal Saline Iv) 1,000 mls @ 75 mls/hr IV CONT .[id number] IAN Last Admin: 02/02/20 01:53 Dose: 75 mls/hr Documented by: Lorazepam (Ativan Inj) 0.5 mg IV PUSH Q6H PRN PRN Reason: Anxiety Metoprolol Tartrate (Lopressor Inj) 5 mg IV PUSH Q6HR IAN Morphine Sulfate (Morphine Sulfate Inj) 4 mg IV PUSH Q2H PRN PRN Reason: Pain Rated 7-10 Last Admin: 02/02/20 01:52 Dose: 4 mg Documented by: Ondansetron HCl (Zofran Inj) 8 mg IV PUSH Q4H PRN PRN Reason: Nausea Pantoprazole Sodium (Protonix Iv) 40 mg IV PUSH Q12HR [facility] Transfer Discharge Sum: Hosp Hospital Course Hospital course: Cathi Funez is a 74 year old female who was admitted on 01/31/2020 for acute post operative pain that was worsening. At the time of admission she denied nausea, vomiting, dysuria, hematuria, flank pain or difficulty eating or drinking. Her CT scan abdomen/pelvis on 01/31/2020 shows extensive subcutaneous emphysema of the chest, abdominal and pelvic aponte, intraperitoneal and retroperitoneal free air, air in the bladder lumen, fluid-filled dilated distal esophagus, bilateral renal cysts. She reportedly left the hospital on 01/30/2020 and was doing very well. Dr. Raphael examined her yesterday afternoon and she was reportedly improving, she had minimal pain, denied nausea or vomiting, was passing flatus, had no urinary symptoms and was afebrile. Patient has developed nausea and vomiting overnight, but states abdominal pain has improved. She has coffee ground emesis and hemataemesis since she began vomiting. She has not had a BM in >4 days. Today she is tachycardic, is afebrile and has tachypnea. She has a history of esophageal rupture and stricture and was told by her GI doctor (Jacinto Poe) to not have any intervention such as an NG tube d/t her fragile esophagus tissue. Her incisions are well approximated, abdomen is much less tender on exam today. Time Spent with Patient Time attestation: Total time spent providing and/or coordinating transfer services: 45 Exam Resp: Effort & Inspection: tachypneic Cardio: Rate: tachycardic GI: Inspection: incision (well approxmiated, no drainage, edema or erythema present) GI Palp: Yes Soft to palpation and No Tenderness to palpation present (GI) Other: During exam today patient is vomiting coffee grounds and hemataemesis. : General: Yes no CVA tenderness Extrem: General: no edema DS: Data Data Completed and Pending Labs on day of discharge: Labs from last 24 hours 02/02/20 02/02/2001/15
[2020-02-02] MEDS: ONDANSETRON INJ 4 MG/2 ML VIAL (12:16)
[2020-02-02] MEDS: PANTOPRAZOLE SODIUM IV 40 MG VIAL IV PUSH (12:16)
[2020-02-02 12:20] LABS: Amylase 35 U/L (30-110); Lipase 15 U/L (23-300)
[2020-02-02 13:00] VITALS: BP 168/78
[2020-02-02] MEDS: METOPROLOL TARTRATE INJ 5 MG/5 ML VIAL IV PUSH ×2 (13:11→17:28)
[2020-02-02 13:20] LABS: Hematocrit 34.9 % (37.0-47.0); Hemoglobin 11.4 g/dL (12.0-15.0)
[2020-02-02 14:00] VITALS: BP 172/78; PULSE 102; RESP 20; TEMP 36.7; O2SAT 97
[2020-02-02] MEDS: ONDANSETRON INJ 4 MG/2 ML VIAL 8 MG IV PUSH (17:29)
== END 2020-02-02 20:20 | disposition short-term general hospital (02) ==
LOC: ANHED 21:12 → ANH3MEDSUR 21:23
PROVIDERS: Internal Medicine; Nurse Practitioner Adult Health; Admitting Provider Urology; Emergency Provider Emergency Medicine; PCP Family Medicine; Visit Provider Urology
DX: G89.18 Other acute postprocedural pain (principal); R10.9 Unspecified abdominal pain; T81.82XD Emphysema (subcutaneous) resulting from a procedure, subsequent encounter; K92.0 Hematemesis; K22.10 Ulcer of esophagus without bleeding; K22.2 Esophageal obstruction; E87.1 Hypo-osmolality and hyponatremia; I10 Essential (primary) hypertension; N28.1 Cyst of kidney, acquired; F17.210 Nicotine dependence, cigarettes, uncomplicated; F41.9 Anxiety disorder, unspecified; Z79.899 Other long term (current) drug therapy
CPT/HCPCS: 36415; 71045; 74177; 80053; 81001; 82150; 83605; 83690; 85014; 85018; 85025; 85610; 85730; 96361; 96374; 96375; 96376; 99285; C9113; G0378; J0131; J2270; J2405; J7030; Q9967

== ENCOUNTER 2020-12-11 19:04 | Emergency (ER) | payer MEDICARE, SELFPAY ==
[2020-12-11 19:13] VITALS: BP 103/68; PULSE 114; RESP 18; TEMP 36.3; O2SAT 99
[2020-12-11 19:19] VITALS: PULSE 90
--- NOTE | 2020-12-11 19:45 | ED.GENADULT ---
HPI - General Adult General Chief complaint: Unspecified Stated complaint: leaking from feeding tube site Time Seen by Provider: 12/11/20 19:17 History of Present Illness HPI narrative: 75 yo female presents with leakage from her G-tube site. She had her g-tube removed 2 days ago. She had mild drainage until early this evening when she suddenly began experiencing a large amount of foul smelling drainage. No pain, nausea, vomiting, constipation, diarrhea, fever, bloating. Related Data Home Medications Medication Instructions Recorded Confirmed melatonin 10 mg PO HS PRN 09/14/19 07/15/20 ondansetron 4 mg disintegrating 4 mg PO Q6H 02/09/20 07/15/20 tablet pantoprazole 40 mg tablet,delayed 40 mg PO BID tablet 02/09/20 07/15/20 release Allergies Allergy/AdvReac Type Severity Reaction Status Date / Time No Known Allergies Allergy Verified 12/11/20 19:18 Review of Systems Review of Systems: All systems reviewed & are unremarkable except as noted in HPI and below PMFSH Past Medical History Medical History Achalasia of cardia Age-related osteoporosis without current pathological fracture Anxiety Arthritis Cataracts, bilateral Esophageal stenosis Esophageal ulcer Gastro-esophageal reflux disease with esophagitis Gastrointestinal ulcer History of esophageal dilatation HTN (hypertension), benign Memory loss Osteoporosis Pheochromocytoma Pneumonia Uterine fibroid UTI (urinary tract infection) Surgical History Surgical History History of breast biopsy (~1997) left History of esophageal surgery due to esophageal rupture 20+ yrs ago History of esophagogastroduodenoscopy (EGD) History of hysterectomy Hx of shoulder surgery lt shoulder Hx of tonsillectomy 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 Family lives across the street. She smokes a pack a day since age 18. Rare alcohol use. She is full code. She nominates her daughter to be the individual would make medical decisions for her if she is not able. Smoking packs per day: 0.75 Smoking cigarettes per day: 15.0 Years smoked: 56 Smoking pack-years: 42.00 Smoking status: Current every day smoker Tobacco type: cigarettes Smoking end date: 01/28/20 Additional smoking assessment comments: Trying to quit. Last cigarette was last Saturday or . Alcohol intake: never Substance use: never Substance use type: does not use Gender identity (if verbalized by the patient): Female Spiritual care concerns: No Agree to blood products: No Exam Const: General: healthy appearing, no acute distress and alert Orientation/consciousness: patient oriented x3 HENMT: Head: normal to inspection Resp: Effort & Inspection: normal respiratory effort Auscultation: clear to auscultation bilaterally, no rales, no rhonchi and no wheezes Cardio: Rate: regular rate Rhythm: regular rhythm GI: Inspection: non-distended GI Palp: Yes Soft to palpation and No Tenderness to palpation present (GI) Other: site and surrounding skin appears healthy Skin: General skin exam: normal color Neuro: General: patient oriented x3 and moves all extremities Speech: normal speech Extrem: General: no edema Psych: Appearance: well kempt Affect: normal affect Course Vital Signs Vital signs: Vital Signs Temperature 36.3 C L 12/11/20 19:13 Pulse Rate 114 H 06
[2020-12-11 19:54] VITALS: BP 108/59; PULSE 83; RESP 12; O2SAT 95
--- NOTE | 2020-12-11 20:12 | PC.NURSE ---
Ambulated with pt per ERP request after dressing applied. No leaking at site.
[2020-12-11 20:50] VITALS: BP 113/67; PULSE 96; RESP 16; O2SAT 97
== END 2020-12-11 20:51 | disposition home or self-care (01) ==
PROVIDERS: Emergency Provider Emergency Medicine; PCP Family Medicine
DX: K94.29 Other complications of gastrostomy (principal); M81.0 Age-related osteoporosis without current pathological fracture; F41.9 Anxiety disorder, unspecified; H26.9 Unspecified cataract; M19.90 Unspecified osteoarthritis, unspecified site; K21.00 Gastro-esophageal reflux disease with esophagitis, without bleeding; K22.2 Esophageal obstruction; K22.10 Ulcer of esophagus without bleeding; I10 Essential (primary) hypertension; Z87.01 Personal history of pneumonia (recurrent); Z87.440 Personal history of urinary (tract) infections
CPT/HCPCS: 99282

== ENCOUNTER 2021-04-29 12:28 | Outpatient (CLI) | payer MEDICARE, SELFPAY ==
--- NOTE | ~2021-04-29 | MR_ITS ---
EXAMINATION: MR brain/brain stem wo/w con DATE: 04/29/2021 13:48 INDICATION: Other amnesia. Ataxia. TECHNIQUE: Magnetic resonance imaging (MRI) of the brain and brainstem was performed without and with 10 mL MultiHance intravenous contrast. Sequences included sagittal and axial T1-weighted FSE, axial diffusion-weighted FS EPI, axial T2*-weighted GRE, axial T2-weighted FLAIR Propeller, and axial T2-we ighted Propeller. Postcontrast sequences included axial and coronal T1-weighted FSE. Apparent diffusi on coefficient (ADC) maps were created. COMPARISON: Brain MRI 04/25/2015 FINDINGS: There are scattered areas of nonspecific increased T2-weighted signal intensity in the cere bral white matter and minda, which is within normal limits for the patient's age. 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 There is a developmental venous anomaly in left frontopariet al region. There is no intracranial hemorrhage, acute infarction, or abnormal intracranial mass lesio n. The ventricles are normal in size. There are likely changes of ocular lens replacement surgeries. The mastoid air cells are normal. There is mild mucosal thickening in sphenoid sinus. IMPRESSION: 1. Normal aging brain. Reviewed, dictated and finalized at location A. R [employer] IMPRESSION: 1. Normal aging brain.
[2021-04-29 13:20] LABS: Estimated Glomerular Filt Rate 49
== END 2021-04-29 12:29 | disposition home or self-care (01) ==
LOC: ANHIMG 12:32
PROVIDERS: PCP Family Medicine; Visit Provider Family Medicine
DX: R41.3 Other amnesia (principal); R27.0 Ataxia, unspecified
CPT/HCPCS: 70553; A9577

== ENCOUNTER 2021-08-27 10:18 | Emergency (ER) | payer MEDICARE, SELFPAY ==
[2021-08-27] VITALS (33 sets, daily range): BP systolic 121–170; BP diastolic 78–96; PULSE 91–137; RESP 7–22; TEMP 36.6; O2SAT 98–100
--- NOTE | ~2021-08-27 | CT_ITS ---
EXAMINATION: CT abdomen pelvis w con DATE: 08/27/2021 13:35 INDICATION: Abdominal pain and vomiting. TECHNIQUE: Computed tomography (CT) of the abdomen and pelvis was performed with 100 mL Omnipaque 350 intravenous contrast. Automated exposure control and iterative reconstruction technique were employe d. The dose-length product was 167.22 mGy-cm. COMPARISON: CT abdomen and pelvis 01/31/2020 FINDINGS: The visualized portions of the lung bases are clear without pneumonia or pleural effusion. There are bilateral posterior diaphragmatic hernias containing fat. The heart size is normal. No larry cardial effusion. The liver, gallbladder, spleen, pancreas, and right adrenal gland are normal. There are changes of left adrenalectomy. There are cysts in the kidneys measuring up to 4.7 cm on the left . There are no dilated loops of bowel. The appendix is normal. There are no pathologically enlarged l ymph nodes. There is no free intraperitoneal fluid. There is severe lumbar spondylosis. There is mild chronic anterior wedging of T11 vertebral body. IMPRESSION: 1. No etiology for the patient's symptoms. Reviewed, dictated and finalized at location A.
--- NOTE | 2021-08-27 10:28 | ED.NAVMDI ---
HPI - Nausea/Vomiting/Diarrhea General Chief complaint: Nausea/Vomiting/Diarrhea Stated complaint: Vomiting Time Seen by Provider: 08/27/21 10:26 Source: patient and family Mode of arrival: ambulatory Limitations: no limitations History of Present Illness HPI Narrative: This is a 76 year old female that presents to the ER for nausea and vomiting. Ongoing over the last couple of days. Associated with some upper abdominal discomfort. Reports history of needing a dilation in the past. Her GI doctor is Dr. Jacinto Schumacher at [facility]. Denies fever, chest pain, shortness of breath, diarrhea, or dysuria. Related Data Home Medications Medication Instructions Recorded Confirmed famotidine 40 mg tablet 40 mg PO BID tablet 04/17/21 08/21/21 sucralfate 100 mg/mL oral 1 g PO DAILY ml 08/21/21 08/21/21 suspension Allergies Allergy/AdvReac Type Severity Reaction Status Date / Time No Known Allergies Allergy Verified 08/21/21 11:20 Review of Systems Review of Systems: CONSTITUTIONAL: Denies fever CARDIOVASCULAR: Denies chest pain RESPIRATORY: Denies dyspnea. GASTROINTESTINAL: Reports abdominal pain, nausea, vomiting. Denies diarrhea. GENITOURINARY: Denies dysuria All systems reviewed & are unremarkable except as noted in HPI and below PMFSH Past Medical History Medical History Achalasia of cardia Age-related osteoporosis without current pathological fracture Anxiety Arthritis Cataracts, bilateral Esophageal stenosis Esophageal ulcer Gastro-esophageal reflux disease with esophagitis Gastrointestinal ulcer History of esophageal dilatation HTN (hypertension), benign Memory loss Osteoporosis Pheochromocytoma Pneumonia Uterine fibroid UTI (urinary tract infection) Surgical History Surgical History History of breast biopsy (~1997) left History of cornea transplant Left eye History of esophageal surgery due to esophageal rupture 20+ yrs ago History of esophagogastroduodenoscopy (EGD) History of hysterectomy Hx of shoulder surgery lt shoulder Hx of tonsillectomy 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 Family lives across the street. She smokes a pack a day since age 18. Rare alcohol use. She is full code. She nominates her daughter to be the individual would make medical decisions for her if she is not able. Years smoked: 56 Tobacco type: cigarettes Alcohol intake: never Substance use: never Substance use type: does not use Gender identity (if verbalized by the patient): Female Sexual Orientation (if Verbalized by the Patient): Straight or Heterosexual Spiritual care concerns: No Agree to blood products: No Exam Narrative: GENERAL: Well-appearing, well-nourished, and in no acute distress. HEAD: Normocephalic, atraumatic. EYES: EOMI. ENT: Mucous membranes moist. Oropharynx without tonsillar hypertrophy exudate or other lesions. CHEST: Clear to auscultation. No respiratory distress. No wheezes rales or rhonchi HEART: Regular rate and rhythm. No murmur heard. Normal peripheral pulses. ABDOMEN: Soft, nondistended, normal active bowel sounds. Tender to palpation in the epigastrium, without guarding EXTREMITIES: Normal range of motion. No edema. SKIN: Warm, dry, no rash. NEURO: No focal deficits. Alert and oriented x3. PSYCH: Normal mood and affect Course Consultations Consultation #1: Spoke with Dr. Walsh
--- NOTE | 2021-08-27 10:46 | ECG_ITS ---
Measurements Intervals [place] Rate: 116 P: 75 WV: 148 QRS: 82 QRSD: 69 T: 82 QT: 315 QTc: 438 Interpretive Statements SINUS TACHYCARDIA POSSIBLE LEFT ATRIAL ENLARGEMENT [-0.1mV P-WAVE IN V1/V2] POOR R-WAVE PROGRESSION, CANNOT RULE OUT OLD ANTEROSEPTAL MYOCARDIAL INFARCTION NEW LINE NONSPECIFIC ST CHANGES COMPARED TO ECG 09/09/2019 12:10:08 SINUS TACHYCARDIA NOW PRESENT Electronically Signed On 08-27-2021 16:57:49 CDT by Mercedes Tejada M.D.
[2021-08-27 11:01] LABS: Basophils Percent Auto 0.3 % (0.2-1.2); Eosinophils Percent Auto 0.1 % (0-4.4); Hematocrit 53.1 % (37.0-47.0); Hemoglobin 17.6 g/dL (12.0-15.0); Immature Granulocyte Absolute 0.04 K/mm3 (0.00-0.031); Immature Granulocyte Percent A 0.4 % (0-0.5); Lymphocytes Percent Auto 15.9 % (18.3-44.2); Mean Corpuscular HGB Conc 33.1 g/dl (32-36); Mean Corpuscular Hemoglobin 31.2 pg (26-34); Mean Corpuscular Volume 94.1 fl (80-100); Mean Platelet Volume 9.5 fl (7.4-10.4); Monocytes Absolute Auto 0.4 K/mm3 (0.1-0.6); Monocytes Percent Auto 4.1 % (2.6-8.5); Neutrophils Percent Auto 79.2 % (45.5-73.1); Platelet Count Result 285 k/mm3 (150-375); Red Blood Count 5.64 M/mm3 (4.2-5.4); Red Cell Distribution Width 13.1 % (11.5-14.5); White Blood Count 10.1 K/mm3 (4.5-10.0)
[2021-08-27 11:06] LABS: Add Urine Microscopic? YES; Appearance Urine Cloudy (Clear); Bacteria Urine Trace /hpf; Bilirubin Urine Negative (Negative); Blood Urine Negative (Negative); Color Urine Amber (Yellow); Glucose Urine UA 1+ mg/dL (Negative); Ketones Urine 1+ mg/dL (Negative); Leukocyte Esterase Ur Trace LEU/UL (Negative); Mucus Urine Heavy /lpf; Nitrate Urine Negative (Negative); Protein Urine 2+ mg/dL (Negative); Specific Grav Ur 1.026 (1.001-1.035); Squamous Epithelial Cell Urine Occasional /hpf (Few); Urobilinogen Urine Negative mg/dL (<2.0)
[2021-08-27] MEDS: SODIUM CHLORIDE 0.9% IV 1,000 ML 999 ML IV CONT (11:17)
[2021-08-27] MEDS: FAMOTIDINE 20 MG/2 ML VIAL IV PUSH (11:17)
[2021-08-27] MEDS: ONDANSETRON INJ 4 MG/2 ML VIAL IV PUSH (11:17)
[2021-08-27 11:22] LABS: Alanine Aminotransferase 17 U/L (4-35); Alkaline Phosphatase 116 U/L (38-126); Anion Gap 12 mmol/L (8-16); Aspartate Amino Transferase 33 U/L (14-36); Bilirubin,Total 0.8 mg/dL (0.2-1.3); Blood Urea Nitrogen 27 mg/dL (7-17); Calcium 10.1 mg/dL (8.4-10.2); Carbon Dioxide 21 mmol/L (22-30); Chloride 102 mmol/L (98-107); Estimated Glomerular Filt Rate > 60; Glucose 169 mg/dL (65-110); Lipase 151 U/L (23-300); Potassium 4.9 mmol/L (3.4-5.0); Sodium 135 mmol/L (137-145)
[2021-08-27] MEDS: SODIUM CHLORIDE 0.9% IV 500 ML 999 ML IV CONT (15:16)
[2021-08-27 15:28] LABS: Hemoglobin A1C 4.9 % (<5.7)
[2021-08-27] MEDS: PANTOPRAZOLE SODIUM IV 40 MG VIAL IV PUSH (16:12)
== END 2021-08-27 17:08 | disposition home or self-care (01) ==
PROVIDERS: Physician Assistant; Emergency Provider Emergency Medicine; PCP Family Medicine
DX: E86.0 Dehydration (principal); R11.2 Nausea with vomiting, unspecified; I10 Essential (primary) hypertension; M81.0 Age-related osteoporosis without current pathological fracture; M19.90 Unspecified osteoarthritis, unspecified site; K21.00 Gastro-esophageal reflux disease with esophagitis, without bleeding; Z87.01 Personal history of pneumonia (recurrent); Z87.440 Personal history of urinary (tract) infections; Z94.7 Corneal transplant status; H26.9 Unspecified cataract; F17.210 Nicotine dependence, cigarettes, uncomplicated; Z79.899 Other long term (current) drug therapy
CPT/HCPCS: 36415; 74177; 80053; 81001; 83036; 83690; 85025; 93005; 96361; 96374; 96375; 99284; C9113; J2405; J7030; J7040; Q9967

== ENCOUNTER 2022-02-27 13:42 | Outpatient (CLI) | payer MEDICARE, SELFPAY ==
[2022-02-27 14:06] LABS: Estimated Glomerular Filt Rate 54
== END 2022-02-27 13:43 | disposition home or self-care (01) ==
LOC: ANHIMG 13:46
PROVIDERS: PCP Family Medicine; Visit Provider Physician Assistant
DX: Z12.2 Encounter for screening for malignant neoplasm of respiratory organs (principal)
CPT/HCPCS: 99199

== ENCOUNTER 2022-02-27 15:01 | Outpatient (CLI) | payer MEDICARE, SELFPAY ==
--- NOTE | ~2022-02-27 | CT_ITS ---
EXAMINATION: CT soft tissue neck w con DATE: 02/27/2022 14:18 INDICATION: Neck mass. TECHNIQUE: Computed tomography (CT) of the neck was performed with 75 mL Omnipaque-350 intravenous co ntrast. Automated exposure control and iterative reconstruction technique were employed. The dose-joel gth product was 259.98 mGy-cm. COMPARISON: CT cervical spine 08/24/2019 FINDINGS: There is moderate emphysema. There is mild scarring at the lung apices. There are likely ch anges of ocular lens replacement surgeries. There is a skin marker superficial to left carotid bifurc ation. There is plaque in the proximal internal carotid arteries with less than 50% stenosis relative to normal distal artery lumen diameters. There are no pathologically enlarged lymph nodes. There is mild cervical spondylosis. IMPRESSION: 1. No abnormal neck mass or lymphadenopathy. Reviewed, dictated and finalized at location A.
--- NOTE | ~2022-02-27 | CT_ITS ---
EXAMINATION: CT lung screening DATE: 02/27/2022 14:17 INDICATION: Personal history of nicotine dependence, current smoker with 40 pack year history TECHNIQUE: Computed tomography (CT) of the chest was performed without intravenous contrast. The dose -length product (DLP) was 62.28 mGy-cm. Automated exposure control and iterative reconstruction techn [employer] were employed. COMPARISON: 01/15/2017 FINDINGS: There is moderate emphysema. There is a stable 3 mm nodule of the right upper lobe. There a re stable groundglass nodules of the right upper lobe measuring up to 8 mm. There are some new pulmon connie nodules which measure less than 4 mm. The lungs are free of acute airspace opacities. No pleural effusion or pneumothorax. No pathologically enlarged thoracic lymph nodes are identified. The heart s ize is normal. There is moderate thoracic spondylosis. IMPRESSION: 1. Lung-RADS category 2: Benign appearance or behavior. Continue annual screening with noncontrast lo w-dose chest CT in 12 months. Reviewed, dictated and finalized at location B. IMPRESSION: 1. Lung-RADS category 2: Benign appearance or behavior. Continue annual screeni ng with noncontrast low-dose chest CT in 12 months.
== END 2022-02-27 15:02 | disposition home or self-care (01) ==
LOC: ANHIMG 04-10 15:01
PROVIDERS: PCP Family Medicine; Visit Provider Family Medicine
DX: Z12.2 Encounter for screening for malignant neoplasm of respiratory organs (principal); Z87.891 Personal history of nicotine dependence; R22.1 Localized swelling, mass and lump, neck
CPT/HCPCS: 70491; 71271; Q9967

== ENCOUNTER 2022-05-17 12:07 | Outpatient (CLI) | payer MEDICARE, SELFPAY ==
--- NOTE | ~2022-05-17 | DEXA_ITS ---
Bone Density Report Name: AURELIO DELUNA Age: 76 Sex: Female Ethnicity: White Date of : 1945 Indication: osteopenia; hysterectomy;postmenopausal Referring Provider: MUKUND BURCIAGA Study: Bone densitometry was performed. Exam Date: May 17, 2022 Accession number: [id number] Bone Density: Region BMD T-score Z-score Classification AP Spine(L1-L4) 0.880 -1.5 0.9 Osteopenia Femoral Neck (Left) 0.507 -3.1 -1.0 Osteoporosis Total Hip (Left) 0.559 -3.1 -1.4 Osteoporosis Femoral Neck (Right) 0.512 -3.0 -1.0 Osteoporosis Total Hip (Right) 0.591 -2.9 -1.1 Osteoporosis Total Hip Mean 0.575 -3.0 -1.3 Osteoporosis World Health Organization criteria for BMD impression classify patients as: Normal (T-score at or above -1.0), Osteopenia (T-score between -1.0 and -2.5), or Osteoporosis (T-score at or below -2.5). 10-year Fracture Risk: FRAX not reported because: Some T-score for Spine Total or Hip Total or Femoral Neck at or below -2.5 Previous Exams: Region Exam Age BMD T-score BMD Change BMD Change Date g/cm2 vs Baseline vs Previous Total Hip(Left) 05/17/2022 76 0.559 -3.1 -0.086 (-13.3% -0.086 (-13.3% 12/02/2015 70 0.645 -2.4 Total Hip(Right) 05/17/2022 76 0.591 -2.9 -0.103 (-14.9% -0.103 (-14.9% 12/02/2015 70 0.694 -2.0 *Denotes significance at 95% confidence level, LSC for Total Hip = 0.027 g/cm2 Clinical Information Provided by Patient: Smokes Has the following medical conditions: Hysterectomy Patient maximum height was 63 Menopause Age: 52 No regular weight bearing exercise Drinks caffeinated beverages Onset of menses at age 14 Number of children 3 Impression: The patient has osteoporosis, based on the Left Total Hip T-score. The patient has risk factors, including: smoking. The BMD for the Total Hip(Left) decreased, changing by -13.3% since the last DXA exam. The BMD for the Total Hip(Right) decreased, changing by -14.9% since the last DXA exam. Discussion: INCREASED RISK OF FRACTURE. BONE DENSITY IS UNDESIRABLY LOW AT ONE OR MORE SKELETAL SITES, CONSISTENT WITH POSTMENOPAUSAL OSTEOPOROSIS. This patient's lowest T-score meets the World Health Organization's (WHO) criteria for osteoporosis at one or more sites (T-score -2.5 or below). In untreated patients, the risk of osteoporotic fracture increases approximately two-fold for each 1.0 SD decrease in T-score. Low bone density is not the only risk factor for fracture; also consider factors such as pat
== END 2022-05-17 12:08 | disposition home or self-care (01) ==
PROVIDERS: PCP Family Medicine; Visit Provider Physician Assistant Medical
DX: M81.0 Age-related osteoporosis without current pathological fracture (principal); M85.88 Other specified disorders of bone density and structure, other site
CPT/HCPCS: 77080

== ENCOUNTER 2022-06-29 08:56 | Outpatient (CLI) | payer MEDICARE, SELFPAY ==
--- NOTE | ~2022-06-29 | MM_ITS ---
EXAMINATION: MM screening celia BI w nuha HISTORY: Screening TECHNIQUE: Craniocaudal and mediolateral oblique 3-D tomosynthesis images were obtained and synthetic 2-D images were generated. CAD analysis was submitted and interpreted. COMPARISON: Comparison to multiple prior studies sequentially, with oldest reviewed study dated 02/13. BREAST PARENCHYMAL COMPOSITION: There are scattered areas of fibroglandular density. FINDINGS: There is no evidence of suspicious mass, calcification, or architectural distortion to sugg est malignancy in either breast. There has been no suspicious interval change. IMPRESSION: 1. No mammographic evidence of malignancy. 2. Recommend routine screening mammography in one year. BI-RADS Category 1: Negative Reviewed, dictated and finalized at location A. ITALITY SPECIALIST
== END 2022-06-29 08:57 | disposition home or self-care (01) ==
PROVIDERS: PCP Family Medicine; Visit Provider Family Medicine
DX: Z12.31 Encounter for screening mammogram for malignant neoplasm of breast (principal)
CPT/HCPCS: 77063; 77067

== ENCOUNTER 2022-07-04 12:36 | Outpatient (CLI) | payer MEDICARE, SELFPAY ==
[2022-07-04 19:54] LABS: Hematocrit 43.2 % (37.0-47.0); Hemoglobin 13.7 g/dL (12.0-15.0); Mean Corpuscular HGB Conc 31.7 g/dl (32-36); Mean Corpuscular Hemoglobin 29.7 pg (26-34); Mean Corpuscular Volume 93.5 fl (80-100); Mean Platelet Volume 10.2 fl (7.4-10.4); Platelet Count Result 251 k/mm3 (150-375); Red Blood Count 4.62 M/mm3 (4.2-5.4); Red Cell Distribution Width 13.7 % (11.5-14.5); White Blood Count 7.3 K/mm3 (4.5-10.0)
[2022-07-04 20:23] LABS: Alanine Aminotransferase 15 U/L (6-35); Albumin Level 4.3 g/dL (3.5-5.1); Alkaline Phosphatase 79 U/L (38-126); Anion Gap 7 mmol/L (8-16); Aspartate Amino Transferase 34 U/L (14-36); Bilirubin,Total 0.3 mg/dL (0.2-1.3); Blood Urea Nitrogen 23 mg/dL (7-17); Calcium 8.9 mg/dL (8.4-10.2); Carbon Dioxide 26 mmol/L (22-30); Chloride 109 mmol/L (98-107); Estimated Glomerular Filt Rate > 60; Glucose 86 mg/dL (65-110); Potassium 4.2 mmol/L (3.4-5.0); Sodium 142 mmol/L (137-145)
== END 2022-07-04 12:37 | disposition home or self-care (01) ==
LOC: ANHGOSHLAB 12:39
PROVIDERS: PCP Family Medicine; Visit Provider Family Medicine
DX: G93.40 Encephalopathy, unspecified (principal)
CPT/HCPCS: 36415; 80053; 82607; 84443; 85027

== ENCOUNTER 2022-10-09 17:53 | Emergency (ER) | payer MEDICARE, SELFPAY ==
[2022-10-09] VITALS (26 sets, daily range): BP systolic 140–171; BP diastolic 77–95; PULSE 82–133; RESP 12–28; TEMP 36.8; O2SAT 96–100
--- NOTE | ~2022-10-09 | CT_ITS ---
EXAMINATION: CT abdomen pelvis w con DATE: 10/09/2022 20:46 INDICATION: N/V X 2d, epigastric pain TECHNIQUE: Computed tomography (CT) of the abdomen and pelvis was performed with 100 mL Omnipaque-350 intravenous contrast. Automated exposure control and iterative reconstruction technique were employe d. The dose-length product was 176.09 mGy-cm. COMPARISON: 08/27/2021. FINDINGS: Lower thorax: Coronary artery calcification. Patulous, fluid-filled distal esophagus. Surgical clip a t the GE junction. Bibasilar scar. Uncomplicated fat-containing bilateral posterior diaphragmatic her nias. Liver: Normal. Biliary/Gallbladder: Gallbladder is normal. No bile duct dilation. Pancreas: No mass or duct dilation. Spleen: Normal. Adrenals: Left adrenalectomy. Kidneys: Bilateral simple cysts. No mass, stone, or hydronephrosis. GI tract: Old G-tube tract. Distal esophageal and gastric wall edema. Mild colonic wall edema from th e hepatic flexure to the distal sigmoid. Uniform bowel wall enhancement. No small or large bowel dila tion. Normal appendix. Diverticulosis without diverticulitis. Mesentery/Peritoneum: No ascites, mass, or free air. Retroperitoneum: No mass. Atherosclerotic abdominal aortic and/or arterial calcifications. Pelvis: Pelvic organs are within normal limits. Soft Tissues: Soft tissues and body wall unremarkable. Bones: IMPRESSION: Esophagitis/gastritis. Infectious, inflammatory, or ischemic colitis. Reviewed, dictated and finalized at location K.
--- NOTE | 2022-10-09 17:59 | ECG_ITS ---
Measurements Intervals [place] Rate: 130 P: 83 UT: 138 QRS: 83 QRSD: 82 T: 39 QT: 298 QTc: 438 Interpretive Statements SINUS TACHYCARDIA POSSIBLE ANTERIOR MYOCARDIAL INFARCTION , OF INDETERMINATE AGE [30 ms Q WAVE IN V3/V4, OR R < 0.2 mV IN V4] ST DEVIATION AND MODERATE T-WAVE ABNORMALITY, CONSIDER INFERIOR ISCHEMIA [-0.1+ mV T WAVE IN II/aVF] COMPARED TO ECG 08/27/2021 11:05:16 NO SIGNIFICANT CHANGES Electronically Signed On 10-10-2022 9:36:09 CDT by Deondre Frey M.D.
[2022-10-09 18:18] LABS: Basophils Absolute Auto 0.1 K/mm3 (0.0-0.1); Basophils Percent Auto 0.7 % (0.2-1.2); Eosinophils Absolute Auto 0.1 K/mm3 (0-0.3); Eosinophils Percent Auto 0.5 % (0-4.4); Hematocrit 45.9 % (37.0-47.0); Hemoglobin 14.4 g/dL (12.0-15.0); Immature Granulocyte Absolute 0.03 K/mm3 (0.00-0.031); Immature Granulocyte Percent A 0.3 % (0-0.5); Lymphocytes Absolute Auto 2.15 K/mm3 (0.9-3.2); Lymphocytes Percent Auto 21.4 % (18.3-44.2); Mean Corpuscular HGB Conc 31.4 g/dl (32-36); Mean Corpuscular Hemoglobin 26.8 pg (26-34); Mean Corpuscular Volume 85.5 fl (80-100); Mean Platelet Volume 9.6 fl (7.4-10.4); Monocytes Absolute Auto 0.7 K/mm3 (0.1-0.6); Neutrophils Absolute Auto 7.1 K/mm3 (1.3-6.7); Neutrophils Percent Auto 70.1 % (45.5-73.1); Platelet Count Result 399 k/mm3 (150-375); Red Blood Count 5.37 M/mm3 (4.2-5.4); Red Cell Distribution Width 14.5 % (11.5-14.5); White Blood Count 10.1 K/mm3 (4.5-10.0)
[2022-10-09 18:27] LABS: Alanine Aminotransferase 26 U/L (6-35); Albumin Level 5.5 g/dL (3.5-5.1); Alkaline Phosphatase 102 U/L (38-126); Anion Gap 15 mmol/L (8-16); Aspartate Amino Transferase 32 U/L (14-36); Bilirubin,Total 0.8 mg/dL (0.2-1.3); Blood Urea Nitrogen 15 mg/dL (7-17); Calcium 10.7 mg/dL (8.4-10.2); Carbon Dioxide 22 mmol/L (22-30); Chloride 102 mmol/L (98-107); Estimated CRCL calculation 45 ml/min; Estimated Glomerular Filt Rate > 60; Glucose 125 mg/dL (65-110); Lipase 136 U/L (23-300); Potassium 4.4 mmol/L (3.4-5.0); Sodium 139 mmol/L (137-145)
[2022-10-09 19:22] LABS: Appearance Urine Clear (Clear); Bacteria Urine None Seen /hpf; Bilirubin Urine Negative (Negative); Blood Urine Negative (Negative); Color Urine Yellow (Yellow); Glucose Urine UA Negative (Negative); Ketones Urine 2+ mg/dL (Negative); Leukocyte Esterase Ur 1+ LEU/UL (Negative); Nitrate Urine Negative (Negative); Non Pathogenic Casts 0-2; Protein Urine 1+ mg/dL (Negative); RBC Urine 0-2 /hpf (0-2); Specific Grav Ur 1.021 (1.001-1.035); Squamous Epithelial Cell Urine None seen /hpf (Few); Urobilinogen Urine 0.2 mg/dL (<2.0)
[2022-10-09 19:27] LABS: Add Urine Microscopic? YES
--- NOTE | 2022-10-09 19:28 | ED.NAVMDI ---
HPI - Nausea/Vomiting/Diarrhea General Chief complaint: Nausea/Vomiting/Diarrhea <JENNIFER Escalante Last Filed: 10/10/22 02:36> Stated complaint: Vomiting <JENNIFER Escalante Last Filed: 10/10/22 02:36> Time Seen by Provider: 10/09/22 19:12 <JENNIFER Escalante Last Filed: 10/10/22 02:36> Source: patient and family <JENNIFER Escalante Last Filed: 10/10/22 02:36> Mode of arrival: ambulatory <JENNIFER Escalante Filed: 10/10/22 02:36> Limitations: no limitations <JENNIFER Escalante Last Filed: 10/10/22 02:36> History of Present Illness HPI Narrative: Patient is a 77 y/o female who presents to the ED with c/o N/V. Patient reports having nausea and NBNB vomiting over the last 2 days, unable to keep down any food or drink. Family at bedside reports patient has a history of achalasia and has occasional episodes of similar nausea and vomiting. She typically takes Zofran and Compazine for these episodes, but is currently out of these medications. They are prescribed by her GI specialist that she sees at [facility]. She last had an episode similar to this around 4 months ago. Patient reports having intermittent epigastric abdominal pain, but denies fevers, diarrhea, constipation, rectal bleeding, melena, urinary symptoms, chest pain, difficulty breathing, recent cough or cold symptoms, feelings of acid reflux. No bad food exposure. No sick contacts. <JENNIFER Escalante Last Filed: 10/10/22 02:36> Related Data Home medications: Home Medications Medication Instructions Recorded Confirmed famotidine 40 mg tablet 40 mg PO BID 04/17/21 08/21/21 sucralfate 100 mg/mL oral 1 g PO DAILY 08/21/21 08/21/21 suspension <JENNIFER Escalante Last Filed: 10/10/22 02:36> Allergies/Adverse reactions: Allergies Allergy/AdvReac Type Severity Reaction Status Date / Time No Known Allergies Allergy Verified 07/04/22 11:26 <Rosario Flores PA-C - Last Filed: 10/10/22 02:36> Review of Systems Review of Systems: CONSTITUTIONAL: Denies fever, chills, or sweats. CARDIOVASCULAR: Denies chest pain. RESPIRATORY: Denies cough or dyspnea. GASTROINTESTINAL: See HPI. GENITOURINARY: Denies dysuria or hematuria. SKIN: Denies rash or itching. MUSCULOSKELETAL: Denies back pain, joint pain, or myalgia. <Rosario Flores PA-C - Last Filed: 10/10/22 02:36> All systems reviewed & are unremarkable except as noted in HPI and below <Rosario Flores PA-C - Last Filed: 10/10/22 02:36> PMFSH Past Medical History Medical History: Medical History Achalasia of cardia Age-related osteoporosis without current pathological fracture Anxiety Arthritis Cataracts, bilateral Esophageal stenosis Esophageal ulcer Gastro-esophageal reflux disease with esophagitis Gastrointestinal ulcer History of esophageal dilatation HTN (hypertension), benign Memory loss Osteoporosis Pheochromocytoma Pneumonia Uterine fibroid UTI (urinary tract infection) <Rosario Flores PA-C - Last Filed: 10/10/22 02:36> Surgical History Surgical History: Surgical History History of breast biopsy (~1997) left History of cornea transplant Left eye History of esophageal surgery due to esophageal rupture 20+ yrs ago History of esophagogastroduodenoscopy (EGD) History of hysterectomy Hx of shoulder surgery lt shoulder Hx of tonsillectomy 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
[2022-10-09] MEDS: ONDANSETRON INJ 4 MG/2 ML VIAL IV PUSH (19:52)
[2022-10-09] MEDS: PANTOPRAZOLE SODIUM IV 40 MG VIAL IV PUSH (19:52)
[2022-10-09] MEDS: SODIUM CHLORIDE 0.9% IV 1,000 ML 999 ML IV CONT ×2 (19:52→22:07)
[2022-10-09 21:55] LABS: Lactic Acid Reflex 1.1 mmol/L (0.7-2.0)
--- NOTE | 2022-10-15 11:03 | PC.NURSE ---
Late entry: NS fluids were finished and stopped 10/12/22 at approximately 2230.
== END 2022-10-09 22:52 | disposition home or self-care (01) ==
PROVIDERS: Emergency Medicine; Emergency Provider Physician Assistant; PCP Family Medicine
DX: K52.9 Noninfective gastroenteritis and colitis, unspecified (principal); K22.0 Achalasia of cardia; R82.998 Other abnormal findings in urine; I10 Essential (primary) hypertension; M81.0 Age-related osteoporosis without current pathological fracture; K21.00 Gastro-esophageal reflux disease with esophagitis, without bleeding; Z87.01 Personal history of pneumonia (recurrent); Z87.440 Personal history of urinary (tract) infections; Z94.7 Corneal transplant status; Z90.710 Acquired absence of both cervix and uterus; F17.210 Nicotine dependence, cigarettes, uncomplicated; R00.0 Tachycardia, unspecified; R94.31 Abnormal electrocardiogram [ECG] [EKG]
CPT/HCPCS: 36415; 74177; 80053; 81001; 83605; 83690; 85025; 87086; 87088; 93005; 96361; 96374; 96375; 99284; C9113; J2405; J7030; Q9967

== ENCOUNTER 2023-03-05 14:56 | Inpatient (IN) | payer MEDICARE, SELFPAY ==
[2023-03-05] VITALS (44 sets, daily range): BP systolic 92–125; BP diastolic 44–61; PULSE 77–108; RESP 10–25; TEMP 36.6–37; O2SAT 94–100; BMI 16.5
--- NOTE | ~2023-03-05 | CT_ITS ---
EXAMINATION: CT abdomen pelvis w con DATE: 03/05/2023 16:45 INDICATION: Abdominal pain, nausea and weakness TECHNIQUE: Computed tomography (CT) of the abdomen and pelvis was performed with 100 mL Omnipaque-350 intravenous contrast. Automated exposure control and iterative reconstruction technique were employe d. The dose-length product was 190.31 mGy-cm. COMPARISON: 10/09/2022 FINDINGS: Small fat-containing diaphragmatic hernias along the posterior left and right sides of the diaphragm. Mild bibasilar atelectasis. Heart size is normal with right atrial enlargement. Atherosclerotic sj nary artery calcification. No pericardial or pleural effusion. Again seen is a fluid-filled dilated d istal esophagus consistent with reported history of achalasia. Liver, gallbladder, spleen, pancreas a nd right adrenal gland are normal. Postoperative change of prior left adrenalectomy. 5.4 cm cyst at t he lower pole of the left kidney and 1 cm cyst at the interpolar region of the right kidney. Normal a ppendix. No dilated loops of bowel. There appears to be persistent mild diffuse wall thickening of th e colon and could not exclude a mild colitis. Bladder is normal. The uterus is not identified and has likely been surgically resected. No free intraperitoneal gas or fluid. No pathologically enlarged ab dominal or pelvic lymphadenopathy. There is calcified atherosclerosis of the aorta and many of the ot her arteries. Mild lumbar and moderate lower thoracic spondylosis. Chronic mild anterior wedging at T 10 and T11. IMPRESSION: 1. Persistent diffuse mild wall thickening of the colon and could not exclude colitis which could be infectious, inflammatory or ischemic etiology. 2. Dilated fluid-filled esophagus consistent with reported history of achalasia. Reviewed, dictated and finalized at location A. IMPRESSION: 1. Persistent diffuse mild wall thickening of the colon and could not exclude c olitis which could be infectious, inflammatory or ischemic etiology. 2. Dilated fluid-filled esophagus consistent with reported history of achalasia .
--- NOTE | 2023-03-05 15:06 | ECG_ITS ---
Measurements Intervals [place] Rate: 105 P: 68 TX: 176 QRS: 69 QRSD: 78 T: 53 QT: 302 QTc: 399 Interpretive Statements SINUS TACHYCARDIA ANTEROSEPTAL INFARCT, AGE INDETERMINATE ABNORMAL ECG COMPARED TO ECG 10/09/2022 18:02:14 HEART RATE HAS DECREASED Electronically Signed On 03-06-2023 11:24:57 CDT by Hossein Xie D.O.
[2023-03-05 15:20] LABS: Basophils Absolute Auto 0.1 K/mm3 (0.0-0.1); Basophils Percent Auto 0.6 % (0.2-1.2); Eosinophils Absolute Auto 0.1 K/mm3 (0-0.3); Eosinophils Percent Auto 1.6 % (0-4.4); Hematocrit 29.5 % (37.0-47.0); Hemoglobin 7.9 g/dL (12.0-15.0); Immature Granulocyte Absolute 0.02 K/mm3 (0.00-0.031); Immature Granulocyte Percent A 0.3 % (0-0.5); Lymphocytes Absolute Auto 1.36 K/mm3 (0.9-3.2); Lymphocytes Percent Auto 17.3 % (18.3-44.2); Mean Corpuscular HGB Conc 26.8 g/dl (32-36); Mean Corpuscular Hemoglobin 20.5 pg (26-34); Mean Corpuscular Volume 76.4 fl (80-100); Mean Platelet Volume 10.3 fl (7.4-10.4); Monocytes Absolute Auto 0.7 K/mm3 (0.1-0.6); Monocytes Percent Auto 8.2 % (2.6-8.5); Neutrophils Absolute Auto 5.7 K/mm3 (1.3-6.7); Platelet Count Result 325 k/mm3 (150-375); Red Blood Count 3.86 M/mm3 (4.2-5.4); Red Cell Distribution Width 16.7 % (11.5-14.5); White Blood Count 7.9 K/mm3 (4.5-10.0)
[2023-03-05 15:30] LABS: Alanine Aminotransferase 34 U/L (6-35); Albumin Level 3.8 g/dL (3.5-5.1); Alkaline Phosphatase 89 U/L (38-126); Anion Gap 8 mmol/L (8-16); Aspartate Amino Transferase 60 U/L (14-36); Bilirubin,Total 0.3 mg/dL (0.2-1.3); Blood Urea Nitrogen 38 mg/dL (7-17); Calcium 9.4 mg/dL (8.4-10.2); Carbon Dioxide 22 mmol/L (22-30); Chloride 109 mmol/L (98-107); Estimated CRCL calculation 37 ml/min; Estimated Glomerular Filt Rate > 60; Glucose 92 mg/dL (65-110); Magnesium 2.3 mg/dL (1.6-2.3); Potassium 4.4 mmol/L (3.4-5.0); Sodium 139 mmol/L (137-145)
[2023-03-05 15:50] LABS: Anisocytosis 1+ (NORMAL); Giant Platelets Present; Hypochromasia 1+ (NORMAL); Platelet Estimate Adequate (Adequate)
[2023-03-05 15:51] LABS: Microcytosis 1+ (NORMAL); Schistocytes None Seen (NORMAL); Stomatocytes 1+ (NORMAL)
[2023-03-05] MEDS: ONDANSETRON INJ 4 MG/2 ML VIAL IV PUSH (16:10)
--- NOTE | 2023-03-05 16:15 | ED.GENADULT ---
HPI - General Adult General Chief complaint: Arrhythmia/Palpitations Stated complaint: rapid heart rate History of Present Illness HPI narrative: 77-year-old female presented emerged department for evaluation of nausea generalized weakness and an episode of SVT. Patient states that the symptoms started today. Patient did have a ground-level fall during which she fell against a wall. Patient denies striking head denies any pain or injury from this. Patient states that she was going to use the bathroom when she had worsening dizziness so she laid down and a feeling member called EMS. When EMS arrived they found the patient to be in SVT with a heart rate in the 160s. Patient was treated with 6 mg of Adenocard in route and patient did convert back to normal sinus rhythm. Upon arrival to the ED patient states that she has no chest pain or shortness of breath but does still have some residual nausea. Patient denies any abdominal pain but did have some tenderness to palpation. Patient denies any prior history of GI bleed and denies any black tarry stools. Related Data Home Medications Medication Instructions Recorded Confirmed famotidine 40 mg tablet 40 mg PO BID 04/17/21 08/21/21 dexlansoprazole 60 mg 60 mg PO DAILY 12/05/22 capsule,biphase delayed release melatonin 3 mg capsule 3 mg PO QHS 12/05/22 Allergies Allergy/AdvReac Type Severity Reaction Status Date / Time No Known Allergies Allergy Verified 12/05/22 13:20 Review of Systems Review of Systems: All systems reviewed & are unremarkable except as noted in HPI and below PMFSH Past Medical History Medical History Achalasia of cardia Age-related osteoporosis without current pathological fracture Anxiety Arthritis Cataracts, bilateral Esophageal stenosis Esophageal ulcer Gastro-esophageal reflux disease with esophagitis Gastrointestinal ulcer History of esophageal dilatation HTN (hypertension), benign Memory loss Osteoporosis Pheochromocytoma Pneumonia Uterine fibroid UTI (urinary tract infection) Surgical History Surgical History History of breast biopsy (~1997) left History of cornea transplant Left eye History of esophageal surgery due to esophageal rupture 20+ yrs ago History of esophagogastroduodenoscopy (EGD) History of hysterectomy Hx of shoulder surgery lt shoulder Hx of tonsillectomy 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 Family lives across the street. She smokes a pack a day since age 18. Rare alcohol use. She is full code. She nominates her daughter to be the individual would make medical decisions for her if she is not able. Caffeine-coffee/soda Years smoked: 56 Smoking status: Former smoker Tobacco type: cigarettes Alcohol intake: never Substance use: never Substance use type: does not use Lack of Transportation: No Lack of Food: Never True Current Housing: I Have Housing Concerned About Future Housing: No Difficulty Paying Gas/Electric Bills: No Difficulty Paying for Meds: No Currently Unemployed: No Education: Bachelor's Degree Difficulty w/ Childcare or Family Care: No Living arrangements: with family Occupation/Education: retired Gender identity (if verbalized by the patient): Female Sexual Orientation (if Verbalized by the Patient): Straight or Heterosexual Spiritual care concerns: No Agree to blood products: No E
[2023-03-05 16:45] LABS: INR 0.9; Prothrombin Time 12.9 Seconds (11.1-14.7)
[2023-03-05 16:46] LABS: Partial Thromboplastin Time 20.1 SECONDS (22.3-36.8)
[2023-03-05 17:06] LABS: Influenza A QL RT-PCR Negative (Negative); Influenza B QL RT-PCR Negative (Negative); RSV RNA, RT-PCR Negative (Negative); SARS-CoV-2 RNA PCR Negative (Negative)
[2023-03-05 17:14] LABS: Free T4 Free Thyroxine Reflex 0.92 ng/dL (0.78-2.19)
[2023-03-05] MEDS: SODIUM CHLORIDE 0.9% IV 1,000 ML 999 ML IV CONT (17:48)
[2023-03-05] MEDS: SODIUM CHLORIDE 0.9% IV 500 ML 999 ML IV CONT (18:58)
[2023-03-05 19:01] LABS: Appearance Urine Clear (Clear); Bacteria Urine None Seen /hpf; Bilirubin Urine Negative (Negative); Blood Urine Negative (Negative); Color Urine Yellow (Yellow); Glucose Urine UA Negative (Negative); Ketones Urine Negative (Negative); Leukocyte Esterase Ur Trace LEU/UL (Negative); Nitrate Urine Negative (Negative); Protein Urine Negative (Negative); RBC Urine 0-2 /hpf (0-2); Squamous Epithelial Cell Urine None seen /hpf (Few); Urobilinogen Urine 0.2 mg/dL (<2.0); pH Urine 5.5 (5.0-9.0)
--- NOTE | 2023-03-05 19:04 | PC.NURSE ---
patient and family requesting to speak with provider. Dr. Manning aware
--- NOTE | 2023-03-05 19:10 | PC.NURSE ---
Assumed care of pt. Report received from DAVID Miner. Pt resting quietly with family at bedside. Reports feeling tired, but no additional symptoms. IVF infusing. Instructed pt to keep IV arm straight if possible to infuse. Verbalized understanding. Will cont to monitor.
[2023-03-05 19:20] LABS: Total Triiodothyronine (T3) 1.33 NG/ML (0.97-1.69)
[2023-03-05 19:28] LABS: Add Urine Microscopic? YES; Specific Grav Ur 1.065 (1.001-1.035)
[2023-03-05 20:06] LABS: Lactic Acid Reflex 1.2 mmol/L (0.7-2.0)
--- NOTE | 2023-03-05 20:56 | PC.NURSE ---
Report to DAVID Leone. All questions answered.
--- NOTE | 2023-03-05 21:20 | PM.IMHP ---
H&P: HPI History of Present Illness Date/Time: 03/05/23 21:20 Chief Complaint: patient was brought to the ER for evaluation with complaints of generalized weakness and palpitations Narrative: Our patient is a very pleasant 77 years old white female was brought to the ER for evaluation as she was having generalized weakness and palpitations. Symptoms started this morning. She had a ground level fall when she fell against a wall without striking her head on the ground. After that she went to the bathroom when she had worsening dizziness so she laid down and a family member called EMS. When EMS came, she was in SVT with heart rate of 160. She was given 6 mg of IV Adenocard enroute to the ER and she converted back to normal sinus rhythm. She had tachycardia on ED presentation, and improved with IV hydration and treatment in the ER. CT scan of the abdomen was done which showed finding consistent with colitis. She is being admitted for tele monitoring,IV antibiotics, IV hydration and GI evaluation in am. Review of Systems Review of Systems: patient complains of some nausea vomiting and abdominal pain. No fever rigors chills. No loss of consciousness. Patient had dizziness and palpitations which responded to IV Adenocard All systems reviewed & are unremarkable except as noted in HPI and below PMFSH Past Medical History Medical History (Updated 03/05/23 @ 21:34 by Addy Bejarano MD) Achalasia of cardia Age-related osteoporosis without current pathological fracture Anxiety Arthritis Cataracts, bilateral Esophageal stenosis Esophageal ulcer Gastro-esophageal reflux disease with esophagitis Gastrointestinal ulcer History of esophageal dilatation HTN (hypertension), benign Memory loss Osteoporosis Pheochromocytoma Pneumonia Tobacco abuse counseling Uterine fibroid UTI (urinary tract infection) Surgical History Surgical History History of breast biopsy (~1997) left History of cornea transplant Left eye History of esophageal surgery due to esophageal rupture 20+ yrs ago History of esophagogastroduodenoscopy (EGD) History of hysterectomy Hx of shoulder surgery lt shoulder Hx of tonsillectomy 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 Family lives across the street. She smokes a pack a day since age 18. Rare alcohol use. She is full code. She nominates her daughter to be the individual would make medical decisions for her if she is not able. Caffeine-coffee/soda Years smoked: 56 Smoking status: Former smoker Tobacco type: cigarettes Alcohol intake: never Substance use: never Substance use type: does not use Lack of Transportation: No Lack of Food: Never True Current Housing: I Have Housing Concerned About Future Housing: No Difficulty Paying Gas/Electric Bills: No Difficulty Paying for Meds: No Currently Unemployed: No Education: Bachelor's Degree Difficulty w/ Childcare or Family Care: No Living arrangements: with family Occupation/Education: retired Gender identity (if verbalized by the patient): Female Sexual Orientation (if Verbalized by the Patient): Straight or Heterosexual Spiritual care concerns: No Agree to blood products: No Meds Home Medications and Allergies Home Medications Medication Instructions Recorded Confirmed Type famotidine 40 mg tablet 40 mg PO BID 04/17/21 08/21/21 History sertraline 100 mg tablet 100 mg PO DAILY #90 t
--- NOTE | 2023-03-05 22:18 | ADMGEN ---
This patient, Cathi Funez, was admitted to Medical Room 258-01. Patient/family oriented to hospital policies and general routines including ID bracelet, bed and alarms, visiting hours, pain management, procedures, bathroom and other care routines, personal items, smoking policy, room service/diet, and visiting hours. Information on how to activate the Rapid Response Team has been discussed. Patient/Family are encouraged to report perceived risks to care and to ask questions if they do not understand what they are told or what they should do.
[2023-03-05] MEDS: PIPERACILLN/TAZ 3.375GM/NS50ML 3.375 GM/50 ML BAG IVPB (22:40)
[2023-03-05] MEDS: SODIUM CHLORIDE 0.9% IV 1,000 ML 75 ML IV CONT (22:40)
[2023-03-06] VITALS (16 sets, daily range): BP systolic 91–133; BP diastolic 44–57; PULSE 78–95; RESP 17–20; TEMP 36.1–37.1; O2SAT 95–99; BMI 16.5
[2023-03-06] MEDS: PIPERACILLIN/TAZ 2.25G/NS 50ML 2.25 GM/50 ML BAG IVPB ×3 (05:32→17:39)
[2023-03-06 06:20] LABS: Basophils Percent Auto 0.8 % (0.2-1.2); Eosinophils Absolute Auto 0.2 K/mm3 (0-0.3); Eosinophils Percent Auto 2.9 % (0-4.4); Lymphocytes Absolute Auto 1.66 K/mm3 (0.9-3.2); Lymphocytes Percent Auto 31.6 % (18.3-44.2); Mean Corpuscular HGB Conc 26.8 g/dl (32-36); Mean Corpuscular Hemoglobin 20.2 pg (26-34); Mean Corpuscular Volume 75.3 fl (80-100); Mean Platelet Volume 10.2 fl (7.4-10.4); Monocytes Absolute Auto 0.5 K/mm3 (0.1-0.6); Monocytes Percent Auto 8.7 % (2.6-8.5); Platelet Count Result 262 k/mm3 (150-375); Red Blood Count 3.32 M/mm3 (4.2-5.4); Red Cell Distribution Width 16.5 % (11.5-14.5); White Blood Count 5.3 K/mm3 (4.5-10.0)
[2023-03-06 06:22] LABS: Hemoglobin 6.7 g/dL (12.0-15.0)
[2023-03-06 06:36] LABS: Anion Gap 4 mmol/L (8-16); Blood Urea Nitrogen 21 mg/dL (7-17); Carbon Dioxide 23 mmol/L (22-30); Chloride 111 mmol/L (98-107); Estimated CRCL calculation 42 ml/min; Estimated Glomerular Filt Rate > 60; Glucose 86 mg/dL (65-110); Magnesium 2.1 mg/dL (1.6-2.3); Phosphorus 3.3 mg/dL (2.5-4.5); Potassium 3.9 mmol/L (3.4-5.0); Sodium 138 mmol/L (137-145)
[2023-03-06 07:03] LABS: Anisocytosis 1+ (NORMAL); Hypochromasia 1+ (NORMAL); Microcytosis 1+ (NORMAL); Platelet Estimate Adequate (Adequate); Schistocytes None Seen (NORMAL)
[2023-03-06] MEDS: PANTOPRAZOLE 40 MG TABLET PO (09:39)
[2023-03-06] MEDS: FAMOTIDINE 20 MG TABLET 40 MG PO ×2 (09:39→17:40)
[2023-03-06] MEDS: SERTRALINE HCL 50 MG TABLET 100 MG PO (09:39)
--- NOTE | 2023-03-06 11:11 | PM.IMPN ---
Progress Note: A&P Assessment and Plan (1) Sinus tachycardia: Code(s): R00.0 - Tachycardia, unspecified Status: Acute Assessment and Plan: Improved. Heart rate is now 80s. (2) Reflux esophagitis: Code(s): K21.0 - Gastro-esophageal reflux disease with esophagitis Status: Acute Assessment and Plan: Continue PPI (3) Polyp of colon: Code(s): K63.5 - Polyp of colon Status: Acute (4) Overactive bladder: Code(s): N32.81 - Overactive bladder Status: Acute (5) Hyperlipidemia, unspecified: Qualifiers: Hyperlipidemia type: unspecified Qualified Code(s): E78.5 - Hyperlipidemia, unspecified Code(s): E78.5 - Hyperlipidemia, unspecified Status: Acute (6) HTN (hypertension), benign: Code(s): I10 - Essential (primary) hypertension Status: Acute (7) Essential tremor: Code(s): G25.0 - Essential tremor Status: Acute (8) Chronic obstructive pulmonary disease, unspecified: Code(s): J44.9 - Chronic obstructive pulmonary disease, unspecified Status: Acute (9) Cervical radiculitis: Code(s): M54.12 - Radiculopathy, cervical region Status: Acute (10) Achalasia of cardia: Code(s): K22.0 - Achalasia of cardia Status: Acute (11) Esophageal ulcer: Code(s): K22.10 - Ulcer of esophagus without bleeding Status: Acute (12) Esophageal stenosis: Code(s): K22.2 - Esophageal obstruction Status: Acute (13) Anxiety: Code(s): F41.9 - Anxiety disorder, unspecified Status: Acute (14) Dementia: Code(s): F03.90 - Unspecified dementia, unspecified severity, without behavioral disturbance, psychotic disturbance, mood disturbance, and anxiety Status: Acute (15) Colitis: Code(s): K52.9 - Noninfective gastroenteritis and colitis, unspecified Status: Acute Assessment and Plan: Antibiotics (16) Nicotine dependence, unspecified, uncomplicated: Qualifiers: Nicotine product type: other Qualified Code(s): F17.290 - Nicotine dependence, other tobacco product, uncomplicated Code(s): F17.200 - Nicotine dependence, unspecified, uncomplicated Status: Acute (17) Tobacco abuse counseling: Code(s): Z71.6 - Tobacco abuse counseling Status: Acute (18) Anemia: Code(s): D64.9 - Anemia, unspecified Status: Acute Assessment and Plan: Transfuse 1unit. GI consult Subjective Date/time seen: 03/06/23 11:11 Interval history: No new complaints. Denies any bleeding Exam Narrative: PHYSICAL EXAMINATION: Vital signs: Please see the chart General physical exam: patient feels tired and fatigued, no acute distress, well-nourished Head/eyes: Atraumatic, EOMI, PERRLA ENT: Moist mucous membranes, nasal passages clear Neck: Supple, full range of motion, trachea midline CVS: S1 + S2, regular rate and rhythm, no murmurs Respiratory: Bilaterally fair air entry in both lung mcnamara, mild B/L crackles, symmetric chest expansion, no distress Abdomen: Soft, + mild generalized abdominal tenderness on deep palpation, bowel sounds +ve, no organomegaly Extremities: No clubbing, no cyanosis, no edema, no calf tenderness Musculoskeletal: Moves all, adequate range of motion, no muscle spasms Skin: Warm, dry, no jaundice, no cyanosis Neurological: Awake, alert, oriented x 3, cranial nerves II-XII intact, no focal neurological deficits Psychiatric: Normal mood, non suicidal Objective Data Vital Signs Vital Signs: Vital Signs - 24 hr 03/05/23 14:53 03/05/23 15:57 03/05/23 16:03 Temperature 98.6 F Pulse Rate 108 H 95 99 Respiratory Rate 21 H 21 H 20 Blood Pressure 103/59 L Pulse Oximetry 98 97 100 Oxygen Delivery Room Air 03/05/23 16:15 03/05/23 16:16 03/05/23 18:31 Temperature Pulse Rate 81 89 82 Respiratory Rate 20 18 Blood Pressure 108/59 L 120/54 L Pulse Oximetry 97 99
--- NOTE | 2023-03-06 12:48 | P.CDI_ITS ---
CDI Query Clarification Request BMI 16.5 Nutritional Diagnostic Statement Moderate Protein Calorie Malnutrition as related to increased protein needs in the setting of acute disease (abdominal pain/nausea) as evidenced by < 75% of EER > 7 days and weight loss reported of 7% (8 lbs) in the past 2 months. Please refer to the comprehensive nutrition assessment for further information. Please clarify severity of protein calorie malnutrition if known: * Mild * Moderate * Severe * Other/Unspecified
--- NOTE | 2023-03-06 16:00 | WPDGICN ---
Assessment and Plan Assessment and plan (1) Acute blood loss anemia: Code(s): D62 - Acute posthemorrhagic anemia Status: Acute Assessment and Plan: she has known UGIB due to esophageal ulcer and achalasia for which she had multilple EGD will proceed with egd tomorrow, probably bleeding again from esophageal ulcer iv protonix and npo after midnight (2) Esophageal ulcer: Code(s): K22.10 - Ulcer of esophagus without bleeding Status: Acute Assessment and Plan: probably cause of bleeding and anemia again (3) Achalasia: Code(s): K22.0 - Achalasia of cardia Status: Acute Assessment and Plan: had g-tube in the past she is seeing GI at [facility] (4) SVT (supraventricular tachycardia): Code(s): I47.1 - Supraventricular tachycardia Status: Acute Assessment and Plan: treated and resolved probably triggered by anemia (5) Near syncope: Code(s): R55 - Syncope and collapse Status: Acute GI Consult Note Consult date/time: 03/06/23 16:00 Reason for consult: acute blood loss anemia, h/o esophageal ulcer HPI: Cathi Funez is a 77 year old female with history of achalasia who has seeing GI at [facility] [place] and had multiple EGD most recently with esophageal ulcer, in 2019 had active bleeding and required cautery and clips, at some point also had PEG tube because difficulty swallowing now has been removed. Last EGD 03/2022 without any more ulceration in esophagus. Her last colonoscopy 2020 with diverticulosis and small polyps removed. She came to hospital with generalized weakness and? palpitations, also had a ground level fall without hitting her head on the ground.? A family member called EMS, found to be in SVT with heart rate of 160.? She was given 6 mg of IV Adenocard and she converted back to normal sinus rhythm.?CT scan of the abdomen was done which showed finding consistent with colitis but denies any diarrhea or abdominal pain, no melena. Hgb down to 7.9 from 14, bun 38, creat 0.8 Review of Systems Constitutional: Constitutional: Reports lethargy and Reports weakness Eyes: Eyes: Reports no additional eye complaints ENT: Reports Normal hearing present Cardiovascular: Cardiovascular: Reports lightheadedness Respiratory: Respiratory: Denies cough and Reports dyspnea on exertion Gastrointestinal: Gastrointestinal: Reports nausea Genitourinary: Genitourinary: Denies urinary urgency Musculoskeletal: Musculoskeletal: Denies back pain Integumentary/Breasts: Skin/Breast: Denies rash Neurologic: Denies Abnormal speech present Psychiatric: Psychiatric: Denies anxiety [facility] Past Medical History Medical History (Updated 03/06/23 @ 16:10 by Willy Barnett MD) Achalasia of cardia Acute blood loss anemia Age-related osteoporosis without current pathological fracture Anemia Anxiety Arthritis Cataracts, bilateral Esophageal stenosis Esophageal ulcer Gastro-esophageal reflux disease with esophagitis Gastrointestinal ulcer History of esophageal dilatation HTN (hypertension), benign Memory loss Near syncope Osteoporosis Pheochromocytoma Pneumonia Tobacco abuse counseling Uterine fibroid UTI (urinary tract infection) Surgical History Surgical History History of breast biopsy (~1997) left History of cornea transplant Left eye History of esophageal surgery due to esophageal rupture 20+ yrs ago History of esophagogastroduodenoscopy (EGD) History of hysterectomy Hx of shoulder surgery lt shoulder Hx of tonsillectomy 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
[2023-03-06] MEDS: SODIUM CHLORIDE 0.9% IV 250 ML 30 ML IV CONT (20:20)
[2023-03-06] MEDS: ALPRAZolam (*CRX) 0.25 MG TABLET PO (20:44)
[2023-03-06] MEDS: MELATONIN 3 MG TABLET PO (20:44)
[2023-03-06] MEDS: SODIUM CHLORIDE 0.9% IV 1,000 ML 75 ML IV CONT (22:45)
[2023-03-06] MEDS: VANCOMYCIN 1,000 MG/NS 250 ML 1,000 MG/250 ML BAG 250 MG IVPB (23:08)
[2023-03-07] VITALS (14 sets, daily range): BP systolic 117–152; BP diastolic 52–64; PULSE 75–102; RESP 16–18; TEMP 36.1–37; O2SAT 95–100
[2023-03-07] MEDS: PIPERACILLIN/TAZ 2.25G/NS 50ML 2.25 GM/50 ML BAG IVPB ×3 (01:20→11:38)
--- NOTE | 2023-03-07 06:37 | PC.NURSE ---
On 03/06/23-03/07/2023, the RN license pending, Dominic Nick, provided care and completed [employer] documentation on this patient. I have reviewed the RN's documentation and agree with the findings.
[2023-03-07 06:45] LABS: Basophils Absolute Auto 0.1 K/mm3 (0.0-0.1); Basophils Percent Auto 1.1 % (0.2-1.2); Eosinophils Absolute Auto 0.1 K/mm3 (0-0.3); Eosinophils Percent Auto 2.5 % (0-4.4); Hematocrit 34.5 % (37.0-47.0); Immature Granulocyte Absolute 0.01 K/mm3 (0.00-0.031); Immature Granulocyte Percent A 0.2 % (0-0.5); Lymphocytes Absolute Auto 1.37 K/mm3 (0.9-3.2); Lymphocytes Percent Auto 24.7 % (18.3-44.2); Mean Corpuscular Hemoglobin 22.8 pg (26-34); Mean Corpuscular Volume 78.8 fl (80-100); Mean Platelet Volume 10.2 fl (7.4-10.4); Monocytes Absolute Auto 0.6 K/mm3 (0.1-0.6); Monocytes Percent Auto 9.9 % (2.6-8.5); Neutrophils Absolute Auto 3.4 K/mm3 (1.3-6.7); Neutrophils Percent Auto 61.6 % (45.5-73.1); Platelet Count Result 259 k/mm3 (150-375); Red Blood Count 4.38 M/mm3 (4.2-5.4); Red Cell Distribution Width 17.9 % (11.5-14.5); White Blood Count 5.5 K/mm3 (4.5-10.0)
[2023-03-07 06:58] LABS: Anion Gap 1 mmol/L (8-16); Blood Urea Nitrogen 11 mg/dL (7-17); Calcium 8.2 mg/dL (8.4-10.2); Carbon Dioxide 25 mmol/L (22-30); Chloride 113 mmol/L (98-107); Estimated CRCL calculation 38 ml/min; Estimated Glomerular Filt Rate > 60; Glucose 83 mg/dL (65-110); Potassium 4.2 mmol/L (3.4-5.0); Sodium 139 mmol/L (137-145)
[2023-03-07 08:37] LABS: Platelet Estimate Adequate (Adequate)
[2023-03-07 08:38] LABS: Anisocytosis 1+ (NORMAL); Hypochromasia 1+ (NORMAL); Microcytosis 1+ (NORMAL); Schistocytes Rare (NORMAL)
[2023-03-07] MEDS: FAMOTIDINE 20 MG TABLET 40 MG PO ×2 (09:30→18:00)
[2023-03-07] MEDS: SERTRALINE HCL 50 MG TABLET 100 MG PO (09:30)
[2023-03-07] MEDS: PANTOPRAZOLE 40 MG TABLET PO (09:30)
--- NOTE | 2023-03-07 10:37 | PM.IMPN ---
Progress Note: A&P Assessment and Plan (1) Sinus tachycardia: Code(s): R00.0 - Tachycardia, unspecified Status: Acute Assessment and Plan: Improved. Heart rate is now 80s. (2) Reflux esophagitis: Code(s): K21.0 - Gastro-esophageal reflux disease with esophagitis Status: Acute Assessment and Plan: Continue PPI (3) Polyp of colon: Code(s): K63.5 - Polyp of colon Status: Acute (4) Overactive bladder: Code(s): N32.81 - Overactive bladder Status: Acute (5) Hyperlipidemia, unspecified: Qualifiers: Hyperlipidemia type: unspecified Qualified Code(s): E78.5 - Hyperlipidemia, unspecified Code(s): E78.5 - Hyperlipidemia, unspecified Status: Acute (6) HTN (hypertension), benign: Code(s): I10 - Essential (primary) hypertension Status: Acute (7) Essential tremor: Code(s): G25.0 - Essential tremor Status: Acute (8) Chronic obstructive pulmonary disease, unspecified: Code(s): J44.9 - Chronic obstructive pulmonary disease, unspecified Status: Acute (9) Cervical radiculitis: Code(s): M54.12 - Radiculopathy, cervical region Status: Acute (10) Achalasia of cardia: Code(s): K22.0 - Achalasia of cardia Status: Acute (11) Esophageal ulcer: Code(s): K22.10 - Ulcer of esophagus without bleeding Status: Acute (12) Esophageal stenosis: Code(s): K22.2 - Esophageal obstruction Status: Acute (13) Anxiety: Code(s): F41.9 - Anxiety disorder, unspecified Status: Acute (14) Dementia: Code(s): F03.90 - Unspecified dementia, unspecified severity, without behavioral disturbance, psychotic disturbance, mood disturbance, and anxiety Status: Acute (15) Colitis: Code(s): K52.9 - Noninfective gastroenteritis and colitis, unspecified Status: Acute Assessment and Plan: Antibiotics (16) Nicotine dependence, unspecified, uncomplicated: Qualifiers: Nicotine product type: other Qualified Code(s): F17.290 - Nicotine dependence, other tobacco product, uncomplicated Code(s): F17.200 - Nicotine dependence, unspecified, uncomplicated Status: Acute (17) Tobacco abuse counseling: Code(s): Z71.6 - Tobacco abuse counseling Status: Acute (18) Anemia: Code(s): D64.9 - Anemia, unspecified Status: Acute Assessment and Plan: Patient wants to be transferred to her GI doctor Dr. Schumacher. Will try to contact his office. Subjective Date/time seen: 03/07/23 10:37 Interval history: No additional bleeding Exam Narrative: PHYSICAL EXAMINATION: Vital signs: Please see the chart General physical exam: patient feels tired and fatigued, no acute distress, well-nourished Head/eyes: Atraumatic, EOMI, PERRLA ENT: Moist mucous membranes, nasal passages clear Neck: Supple, full range of motion, trachea midline CVS: S1 + S2, regular rate and rhythm, no murmurs Respiratory: Bilaterally fair air entry in both lung mcnamara, mild B/L crackles, symmetric chest expansion, no distress Abdomen: Soft, + mild generalized abdominal tenderness on deep palpation, bowel sounds +ve, no organomegaly Extremities: No clubbing, no cyanosis, no edema, no calf tenderness Musculoskeletal: Moves all, adequate range of motion, no muscle spasms Skin: Warm, dry, no jaundice, no cyanosis Neurological: Awake, alert, oriented x 3, cranial nerves II-XII intact, no focal neurological deficits Psychiatric: Normal mood, non suicidal Objective Data Vital Signs Vital Signs: Vital Signs - 24 hr 03/06/23 16:00 03/06/23 12:01 03/06/23 16:04 Temperature 97.6 F Pulse Rate 79 81 84 Respiratory Rate 19 Blood Pressure 126/57 L Pulse Oximetry 99 Oxygen Delivery 03/06/23 20:00 03/06/23 20:26 03/06/23 20:00 Temperature 98.7 F 97.9 F Pulse Rate 95 79 Respiratory Rate 17 18 Blood Pressure 133/51
--- NOTE | 2023-03-07 11:30 | WPDGIPROGNO ---
Progress Note: A&P Assessment and Plan (1) Acute blood loss anemia: Code(s): D62 - Acute posthemorrhagic anemia Status: Acute Assessment and Plan: I think she had GIB from recurrent esophageal ulcer (BUN elevated on admission and had symptomatic anemia- improved after medical treatment and iv protonix) she had multiple EGD for similar problem and also history achalasia she refused to get EGD here and would like to be transferred to her GI doctor in [facility] monitor for signs of bleeding will advance diet (2) Achalasia of cardia: Code(s): K22.0 - Achalasia of cardia Status: Acute Assessment and Plan: denies dysphagia now (3) Esophageal ulcer: Code(s): K22.10 - Ulcer of esophagus without bleeding Status: Acute Assessment and Plan: medical treatment (4) SVT (supraventricular tachycardia): Code(s): I47.1 - Supraventricular tachycardia Status: Acute Assessment and Plan: resolved (5) Abnormal CT scan, gastrointestinal tract: Code(s): R93.3 - Abnormal findings on diagnostic imaging of other parts of digestive tract Status: Acute Assessment and Plan: ? colitis but no abdominal pain, unlikely but started empirically on abx also achalasia Subjective Date/time seen: 03/07/23 11:30 Interval history: she is feeling better, no abdominal pain she refused to get EGD today, she says that would like to be transferred to [facility] with her regular GI doctor Review of Systems Review of Systems: All systems reviewed & are unremarkable except as noted in HPI and below Exam Const: General: comfortable and no acute distress HENMT: Face/Nose/Sinus: Normal nares present Eyes: General: appearance normal, both eyes and all related structures Neck: Neck: supple Resp: Auscultation: clear to auscultation bilaterally Cardio: Rate: regular rate Rhythm: regular rhythm GI: Inspection: non-distended GI Palp: Yes Soft to palpation and No Guarding due to palpation present (GI) Auscultation: normal bowel sounds Skin: General skin exam: no rashes or lesions noted Neuro: Speech: normal speech Motor exam (neuro): 5/5 motor strength present throughout Extrem: General: normal to inspection Psych: Mental Status: mental status grossly normal Objective Data Vital Signs Vital Signs: Vital Signs - 24 hr 03/06/23 16:00 03/06/23 12:01 03/06/23 16:04 Temperature 97.6 F Pulse Rate 79 81 84 Respiratory Rate 19 Blood Pressure 126/57 L Pulse Oximetry 99 Oxygen Delivery 03/06/23 20:00 03/06/23 20:26 03/06/23 20:00 Temperature 98.7 F 97.9 F Pulse Rate 95 79 Respiratory Rate 17 18 Blood Pressure 133/51 L 109/46 L Pulse Oximetry 98 97 Oxygen Delivery Room Air 03/06/23 20:41 03/06/23 20:42 03/06/23 23:30 Temperature 97.6 F 97.5 F L 97.3 F L Pulse Rate 78 80 81 Respiratory Rate 18 17 18 Blood Pressure 115/47 L 110/46 L 121/53 L Pulse Oximetry 96 97 98 Oxygen Delivery 03/06/23 21:42 03/06/23 23:31 03/06/23 23:45 Temperature 97.7 F 97.3 F L 97.0 F L Pulse Rate 84 84 81 Respiratory Rate 17 17 18 Blood Pressure 101/44 L 121/53 L 128/52 L Pulse Oximetry 97 98 97 Oxygen Delivery 03/07/23 00:45 03/07/23 01:30 03/06/23 20:00 Temperature 97.0 F L 97.6 F Pulse Rate 85 80 82 Respiratory Rate 18 18 Blood Pressure 135/57 L 117/52 L Pulse Oximetry 98 97 Oxygen Delivery 03/07/23 00:00 03/07/23 03:45 03/07/23 04:00 Temperature 98.0 F Pulse Rate 82 84 79 Respiratory Rate 17 Blood Pressure 127/63 Pulse Oximetry 95 Oxygen Delivery 03/07/23 08:40 03/07/23 10:27 Temperature 98.6 F Pulse Rate 75 Respiratory Rate 16 Blood Pressure 123/64 Pulse Oximetry 96 97 Oxygen Delivery Room Air Intake/Output Intake/Output: Intake & Output 03/04/23 03/05/23 03/06/23 03/07/23 23:59 23:59 23:59 23:59 Intake Total 1500 1620 750 Output Total 1700 1500 Balance 1500 -80 -750 Meds/
--- NOTE | 2023-03-07 15:16 | PC.NURSE ---
On 03/07/23, the student, [Gabo Dinero], provided care and completed [facility] documentation on this patient. I have reviewed the student's documentation and agree with the findings.
[2023-03-07] MEDS: SODIUM CHLORIDE 0.9% IV 1,000 ML 75 ML IV CONT (16:05)
[2023-03-07] MEDS: cefTRIAXone 2 GM/NS 100 ML 2 GM/100 ML BAG IVPB (18:03)
[2023-03-07 20:25] LABS: IFOB Positive Control Positive; Immunochemical Fecal Occult Bl Negative (N)
[2023-03-07] MEDS: ALPRAZolam (*CRX) 0.25 MG TABLET PO (20:52)
[2023-03-07] MEDS: MELATONIN 3 MG TABLET PO (20:52)
[2023-03-07] MEDS: metroNIDAZOLE 250 MG TABLET 500 MG PO (20:52)
[2023-03-07] MEDS: VANCOMYCIN 1,000 MG/NS 250 ML 1,000 MG/250 ML BAG 250 MG IVPB (22:33)
[2023-03-08] VITALS (14 sets, daily range): BP systolic 105–148; BP diastolic 54–73; PULSE 70–103; RESP 16–22; TEMP 36.3–37.2; O2SAT 95–100
[2023-03-08] MEDS: metroNIDAZOLE 250 MG TABLET 500 MG PO ×3 (05:22→21:03)
[2023-03-08] MEDS: SODIUM CHLORIDE 0.9% IV 1,000 ML 75 ML IV CONT ×3 (05:26→21:06)
[2023-03-08 06:04] LABS: Basophils Absolute Auto 0.1 K/mm3 (0.0-0.1); Basophils Percent Auto 0.6 % (0.2-1.2); Eosinophils Absolute Auto 0.2 K/mm3 (0-0.3); Eosinophils Percent Auto 2.2 % (0-4.4); Hematocrit 38.4 % (37.0-47.0); Immature Granulocyte Absolute 0.02 K/mm3 (0.00-0.031); Immature Granulocyte Percent A 0.2 % (0-0.5); Lymphocytes Absolute Auto 1.47 K/mm3 (0.9-3.2); Lymphocytes Percent Auto 17.6 % (18.3-44.2); Mean Corpuscular HGB Conc 28.6 g/dl (32-36); Mean Corpuscular Hemoglobin 22.6 pg (26-34); Mean Platelet Volume 10.2 fl (7.4-10.4); Monocytes Absolute Auto 0.7 K/mm3 (0.1-0.6); Monocytes Percent Auto 7.8 % (2.6-8.5); Neutrophils Percent Auto 71.6 % (45.5-73.1); Platelet Count Result 263 k/mm3 (150-375); Red Blood Count 4.86 M/mm3 (4.2-5.4); Red Cell Distribution Width 18.5 % (11.5-14.5); White Blood Count 8.4 K/mm3 (4.5-10.0)
[2023-03-08 06:18] LABS: Anion Gap 9 mmol/L (8-16); Blood Urea Nitrogen 14 mg/dL (7-17); Calcium 8.7 mg/dL (8.4-10.2); Carbon Dioxide 17 mmol/L (22-30); Chloride 112 mmol/L (98-107); Estimated CRCL calculation 48 ml/min; Estimated Glomerular Filt Rate > 60; Glucose 110 mg/dL (65-110); Potassium 3.7 mmol/L (3.4-5.0); Sodium 138 mmol/L (137-145)
[2023-03-08 09:01] LABS: Platelet Estimate Adequate (Adequate)
[2023-03-08 09:02] LABS: Anisocytosis 1+ (NORMAL); Large Platelets Present; Poikilocytosis 1+ (NORMAL); Schistocytes None Seen (NORMAL)
[2023-03-08] MEDS: LACTATED RINGERS 1,000 ML 150 ML IV CONT (09:03)
--- NOTE | 2023-03-08 09:29 | WPDANESEPPF ---
Anes - Initial Pre Proc Eval Procedure: Operation Date: 03/08/23 15:30 Proposed Procedures p Esophagogastroduodenoscopy - Willy Barnett MD Date/Time: 03/08/23 09:29 Surgeon: Addy Bejarano MD Pre Op Diagnosis: Colitis, Anemia, Abdominal Pain Patient Data Age: 77 Gender: F Height: 1.75 m Weight: 50.7 kg Last Vital Signs Temp 97.4 F L 03/08/23 08:58 Pulse 84 03/08/23 08:58 Resp 18 03/08/23 08:58 BP 148/67 H 03/08/23 08:58 Pulse Ox 98 03/08/23 08:58 O2 Del Method Room Air 03/08/23 08:58 Allergies Allergy/AdvReac Type Severity Reaction Status Date / Time No Known Allergies Allergy Verified 03/08/23 08:56 Home Medications Medication Instructions Recorded Confirmed Type famotidine 40 mg tablet 40 mg PO BID 04/17/21 03/05/23 History dexlansoprazole 60 mg 60 mg PO DAILY 12/05/22 03/05/23 History capsule,biphase delayed release (Dexilant) melatonin 3 mg capsule 3 mg PO QHS 12/05/22 03/05/23 History alprazolam 0.25 mg tablet 0.25 mg PO BID PRN anxiety #40 tabs 03/04/23 03/05/23 Rx sertraline 100 mg tablet (Zoloft) 100 mg PO DAILY 03/05/23 03/05/23 History Laboratory Tests 03/07/23 03/08/23 19:52 05:30 WBC 8.4 K/mm3 (4.5-10.0) RBC 4.86 M/mm3 (4.2-5.4) Hgb 11.0 L g/dL (12.0-15.0) Hct 38.4 % (37.0-47.0) MCV 79.0 L fl (80-100) MCH 22.6 L pg (26-34) MCHC 28.6 L g/dl (32-36) RDW 18.5 H % (11.5-14.5) Plt Count 263 k/mm3 (150-375) MPV 10.2 fl (7.4-10.4) Immature Gran % (Auto) 0.2 % (0-0.5) Neut % (Auto) 71.6 % (45.5-73.1) Lymph % (Auto) 17.6 L % (18.3-44.2) [place] % (Auto) 7.8 % (2.6-8.5) Eos % (Auto) 2.2 % (0-4.4) Baso % (Auto) 0.6 % (0.2-1.2) Lymph # (Auto) 1.47 K/mm3 (0.9-3.2) [place]ee # (Auto) 0.7 H K/mm3 (0.1-0.6) Eos # (Auto) 0.2 K/mm3 (0-0.3) Baso # (Auto) 0.1 K/mm3 (0.0-0.1) Abs Immat Gran (auto) 0.02 K/mm3 (0.00-0.031) Absolute Neuts (auto) 6.0 K/mm3 (1.3-6.7) Absolute Nucleated RBC 0.0 K/mm3 (0.0-0.012) Nucleated RBC % 0.0 % (0.0-0.2) Platelet Estimate Adequate (Adequate) Large Platelets Present Poikilocytosis 1+ (NORMAL) Anisocytosis 1+ (NORMAL) Schistocytes None seen (NORMAL) Sodium 138 mmol/L (137-145) Potassium 3.7 mmol/L (3.4-5.0) Chloride 112 H mmol/L (98-107) Carbon Dioxide 17 L mmol/L (22-30) Anion Gap 9 mmol/L (8-16) BUN 14 mg/dL (7-17) Creatinine 0.70 mg/dL (0.7-1.0) Estim Creat Clear Calc 48 ml/min Estimated GFR > 60 (59 - ) Glucose 110 mg/dL (65-110) Calcium 8.7 mg/dL (8.4-10.2) Stl Occult Blood (IFOB) Negative (N) Patient hx anesthesia problems: none Family hx anesthesia problems: none Results Review: All pre-operative results and documents have been reviewed as part of the pre-operative evaluation. [facility] Past Medical History Medical History (Updated 03/07/23 @ 11:34 by Willy Barnett MD) Abnormal CT scan, gastrointestinal tract Achalasia of cardia Acute blood loss anemia Age-related osteoporosis without current pathological fracture Anemia Anxiety Arthritis Cataracts, bilateral Esophageal stenosis Esophageal ulcer Gastro-esophageal reflux disease with esophagitis Gastrointestinal ulcer History of esophageal dilatation HTN (hypertension), benign Memory loss Near syncope Osteoporosis Pheochromocytoma Pneumonia Tobacco abuse counseling Uterine fibroid UTI (urinary tract infection) Surgical History Surgical History History of breast biopsy (~1997) left History of cornea transplant Left eye History of esophageal surgery due to esophageal rupture 20+ yrs ago History of esophagogastroduodenosc
[2023-03-08] MEDS: FAMOTIDINE 20 MG TABLET 40 MG PO ×2 (10:18→16:02)
[2023-03-08] MEDS: SERTRALINE HCL 50 MG TABLET 100 MG PO (10:19)
[2023-03-08] MEDS: SUCRALFATE SUSP 100 MG/ML 10 ML UDC 1000 MG PO ×3 (10:36→21:03)
--- NOTE | 2023-03-08 11:06 | PM.IMPN ---
Progress Note: A&P Assessment and Plan (1) Sinus tachycardia: Code(s): R00.0 - Tachycardia, unspecified Status: Acute Assessment and Plan: Improved. Heart rate is now 80s. (2) Reflux esophagitis: Code(s): K21.0 - Gastro-esophageal reflux disease with esophagitis Status: Acute Assessment and Plan: Continue PPI (3) Polyp of colon: Code(s): K63.5 - Polyp of colon Status: Acute (4) Overactive bladder: Code(s): N32.81 - Overactive bladder Status: Acute (5) Hyperlipidemia, unspecified: Qualifiers: Hyperlipidemia type: unspecified Qualified Code(s): E78.5 - Hyperlipidemia, unspecified Code(s): E78.5 - Hyperlipidemia, unspecified Status: Acute (6) HTN (hypertension), benign: Code(s): I10 - Essential (primary) hypertension Status: Acute (7) Essential tremor: Code(s): G25.0 - Essential tremor Status: Acute (8) Chronic obstructive pulmonary disease, unspecified: Code(s): J44.9 - Chronic obstructive pulmonary disease, unspecified Status: Acute (9) Cervical radiculitis: Code(s): M54.12 - Radiculopathy, cervical region Status: Acute (10) Achalasia of cardia: Code(s): K22.0 - Achalasia of cardia Status: Acute (11) Esophageal ulcer: Code(s): K22.10 - Ulcer of esophagus without bleeding Status: Acute (12) Esophageal stenosis: Code(s): K22.2 - Esophageal obstruction Status: Acute (13) Anxiety: Code(s): F41.9 - Anxiety disorder, unspecified Status: Acute (14) Dementia: Code(s): F03.90 - Unspecified dementia, unspecified severity, without behavioral disturbance, psychotic disturbance, mood disturbance, and anxiety Status: Acute (15) Colitis: Code(s): K52.9 - Noninfective gastroenteritis and colitis, unspecified Status: Acute Assessment and Plan: Antibiotics (16) Nicotine dependence, unspecified, uncomplicated: Qualifiers: Nicotine product type: other Qualified Code(s): F17.290 - Nicotine dependence, other tobacco product, uncomplicated Code(s): F17.200 - Nicotine dependence, unspecified, uncomplicated Status: Acute (17) Tobacco abuse counseling: Code(s): Z71.6 - Tobacco abuse counseling Status: Acute (18) Anemia: Code(s): D64.9 - Anemia, unspecified Status: Acute Assessment and Plan: Cancel transfer, scope performed here Subjective Date/time seen: 03/08/23 11:06 Interval history: No new complaints Exam Narrative: PHYSICAL EXAMINATION: Vital signs: Please see the chart General physical exam: patient feels tired and fatigued, no acute distress, well-nourished Head/eyes: Atraumatic, EOMI, PERRLA ENT: Moist mucous membranes, nasal passages clear Neck: Supple, full range of motion, trachea midline CVS: S1 + S2, regular rate and rhythm, no murmurs Respiratory: Bilaterally fair air entry in both lung mcnamara, mild B/L crackles, symmetric chest expansion, no distress Abdomen: Soft, + mild generalized abdominal tenderness on deep palpation, bowel sounds +ve, no organomegaly Extremities: No clubbing, no cyanosis, no edema, no calf tenderness Musculoskeletal: Moves all, adequate range of motion, no muscle spasms Skin: Warm, dry, no jaundice, no cyanosis Neurological: Awake, alert, oriented x 3, cranial nerves II-XII intact, no focal neurological deficits Psychiatric: Normal mood, non suicidal Objective Data Vital Signs Vital Signs: Vital Signs - 24 hr 03/07/23 15:00 03/07/23 12:01 03/07/23 16:03 Temperature 98.6 F Pulse Rate 76 76 80 Respiratory Rate 18 Blood Pressure 143/64 H Pulse Oximetry 100 Oxygen Delivery Oxygen Flow Rate 03/07/23 19:48 03/07/23 20:00 03/08/23 00:00 Temperature 97.6 F Pulse Rate 89 102 H 87 Respiratory Rate 16 Blood Pressure 152/64 H Pulse Oximetry 99 Oxygen Delivery
[2023-03-08] MEDS: cefTRIAXone 2 GM/NS 100 ML 2 GM/100 ML BAG IVPB (17:00)
[2023-03-08] MEDS: MELATONIN 3 MG TABLET PO (21:03)
[2023-03-08] MEDS: PANTOPRAZOLE 40 MG TABLET PO (21:03)
[2023-03-08] MEDS: ALPRAZolam (*CRX) 0.25 MG TABLET PO (21:03)
[2023-03-09] VITALS: PULSE 80
[2023-03-09 04:00] VITALS: PULSE 75
[2023-03-09] MEDS: metroNIDAZOLE 250 MG TABLET 500 MG PO (05:37)
[2023-03-09] MEDS: SUCRALFATE SUSP 100 MG/ML 10 ML UDC 1000 MG PO ×2 (05:38→10:54)
[2023-03-09 06:00] VITALS: BP 117/56; PULSE 78; RESP 14; TEMP 36.9; O2SAT 96
[2023-03-09 08:00] VITALS: PULSE 70
[2023-03-09] MEDS: FAMOTIDINE 20 MG TABLET 40 MG PO (08:07)
[2023-03-09] MEDS: PANTOPRAZOLE 40 MG TABLET PO (08:07)
[2023-03-09] MEDS: SERTRALINE HCL 50 MG TABLET 100 MG PO (08:07)
[2023-03-09] MEDS: SODIUM CHLORIDE 0.9% IV 1,000 ML 75 ML IV CONT (10:57)
--- NOTE | 2023-03-09 11:05 | WPDGIPROGNO ---
Progress Note: A&P Assessment and Plan (1) Esophageal ulcer: Code(s): K22.10 - Ulcer of esophagus without bleeding Status: Acute Assessment and Plan: recurrent esophageal ulcer, no actively bleeding this time will go home with ppi twice daily also follow-up with her regular GI doctor (also history of achalasia) (2) Acute blood loss anemia: Code(s): D62 - Acute posthemorrhagic anemia Status: Acute Assessment and Plan: no more bleeding h/h stable after transfusion (3) Achalasia of cardia: Code(s): K22.0 - Achalasia of cardia Status: Acute Subjective Date/time seen: 03/09/23 11:05 Interval history: egd yesterday with non-bleeding esophageal ulcer, did not require intervention she is doing ok, no pain and tolerating diet she is going home later today Review of Systems Review of Systems: All systems reviewed & are unremarkable except as noted in HPI and below Exam Const: General: comfortable and no acute distress HENMT: Face/Nose/Sinus: Normal nares present Eyes: General: appearance normal, both eyes and all related structures Neck: Neck: supple Resp: Auscultation: clear to auscultation bilaterally Cardio: Rate: regular rate Rhythm: regular rhythm GI: Inspection: non-distended GI Palp: Yes Soft to palpation and No Guarding due to palpation present (GI) Auscultation: normal bowel sounds Skin: General skin exam: no rashes or lesions noted Neuro: Speech: normal speech Motor exam (neuro): 5/5 motor strength present throughout Extrem: General: normal to inspection Psych: Mental Status: mental status grossly normal Objective Data Vital Signs Vital Signs: Vital Signs - 24 hr 03/08/23 12:00 03/08/23 12:00 03/08/23 16:00 Temperature 98.6 F Pulse Rate 70 87 103 H Respiratory Rate 16 Blood Pressure 148/54 H Pulse Oximetry 98 Oxygen Delivery 03/08/23 20:52 03/08/23 20:00 03/09/23 00:00 Temperature 98.9 F Pulse Rate 84 82 80 Respiratory Rate 16 Blood Pressure 146/58 H Pulse Oximetry 96 Oxygen Delivery 03/09/23 04:00 03/09/23 06:00 03/08/23 23:27 Temperature 98.5 F Pulse Rate 75 78 Respiratory Rate 14 Blood Pressure 117/56 L Pulse Oximetry 96 96 Oxygen Delivery Room Air 03/09/23 08:20 03/09/23 08:00 Temperature Pulse Rate 70 Respiratory Rate Blood Pressure Pulse Oximetry Oxygen Delivery Room Air Intake/Output Intake/Output: Intake & Output 03/06/23 03/07/23 03/08/23 03/09/23 23:59 23:59 23:59 23:59 Intake Total 1620 2320 4060 1120 Output Total 1700 1500 Balance -80 820 4060 1120 Meds/Results Medications: Active Medications Generic Name Dose Route Start Last Admin Trade Name Freq PRN Reason Stop Dose Admin Acetaminophen 650 mg 03/05/23 21:42 Acetaminophen 325 Mg Tablet PO Q4H PRN Mild Pain (1-3) or Fever Al Hydrox/Mg Hydrox/Simethicone 30 ml 03/05/23 21:42 Mag Hydrox/Al Hydrox/Simeth 30 Ml Udc PO QID PRN Dyspepsia Alprazolam 0.25 mg 03/06/23 00:12 03/08/23 21:03 Alprazolam (*Crx) 0.25 Mg Tablet PO 0.25 mg BID PRN Administration anxiety Famotidine 40 mg 03/06/23 09:00 03/09/23 08:07 Famotidine 20 Mg Tablet PO 40 mg BID IAN Administration Sodium Chloride 1,000 mls @ 75 mls/hr 03/05/23 19:30 03/09/23 10:57 Normal Saline Iv IV CONT 75 mls/hr .[id number] IAN Administration Ceftriaxone Sodium 2 gm in 100 mls @ 200 mls/hr 03/07/23 18:00 03/08/23 17:30 Rocephin 2 Gm/Ns 100 Ml IVPB Infused Q24H IAN Infusion Melatonin 3 mg 03/06/23 21:00 03/08/23 21:03 Melatonin 3 Mg Tablet PO 3 mg QHS IAN Administration Metronidazole 500 mg 03/07/23 22:00 03/09/23 05:37 Metronidazole 250 Mg Tablet PO 500 mg Q8HR IAN Administration Ondansetron HCl 4 mg 03/05/23 19:29 Ondansetron Inj 4 Mg/2 Ml Vial IV PUSH Q4H PRN Nausea Pantoprazole Sodium 40 mg 03/08/23 21:
--- NOTE | 2023-03-09 11:14 | PM.DS ---
DS: Admitting Diagnosis Discharge Date March 09, 2023 Admitting Diagnosis Colitis, GI bleed DS: Discharge Diagnosis Discharge Diagnosis (1) Sinus tachycardia: Code(s): R00.0 - Tachycardia, unspecified Status: Acute Assessment and Plan: Improved. Heart rate is now 80s. (2) Reflux esophagitis: Code(s): K21.0 - Gastro-esophageal reflux disease with esophagitis Status: Acute Assessment and Plan: Continue PPI (3) Polyp of colon: Code(s): K63.5 - Polyp of colon Status: Acute (4) Overactive bladder: Code(s): N32.81 - Overactive bladder Status: Acute (5) Hyperlipidemia, unspecified: Qualifiers: Hyperlipidemia type: unspecified Qualified Code(s): E78.5 - Hyperlipidemia, unspecified Code(s): E78.5 - Hyperlipidemia, unspecified Status: Acute (6) HTN (hypertension), benign: Code(s): I10 - Essential (primary) hypertension Status: Acute (7) Essential tremor: Code(s): G25.0 - Essential tremor Status: Acute (8) Chronic obstructive pulmonary disease, unspecified: Code(s): J44.9 - Chronic obstructive pulmonary disease, unspecified Status: Acute (9) Cervical radiculitis: Code(s): M54.12 - Radiculopathy, cervical region Status: Acute (10) Achalasia of cardia: Code(s): K22.0 - Achalasia of cardia Status: Acute (11) Esophageal ulcer: Code(s): K22.10 - Ulcer of esophagus without bleeding Status: Acute (12) Esophageal stenosis: Code(s): K22.2 - Esophageal obstruction Status: Acute (13) Anxiety: Code(s): F41.9 - Anxiety disorder, unspecified Status: Acute (14) Dementia: Code(s): F03.90 - Unspecified dementia, unspecified severity, without behavioral disturbance, psychotic disturbance, mood disturbance, and anxiety Status: Acute (15) Colitis: Code(s): K52.9 - Noninfective gastroenteritis and colitis, unspecified Status: Acute Assessment and Plan: Antibiotics (16) Nicotine dependence, unspecified, uncomplicated: Qualifiers: Nicotine product type: other Qualified Code(s): F17.290 - Nicotine dependence, other tobacco product, uncomplicated Code(s): F17.200 - Nicotine dependence, unspecified, uncomplicated Status: Acute (17) Tobacco abuse counseling: Code(s): Z71.6 - Tobacco abuse counseling Status: Acute (18) Anemia: Code(s): D64.9 - Anemia, unspecified Status: Acute Assessment and Plan: Cancel transfer, scope performed here DS: Summary Hospital Course Hospital Course: 77-year-old female came in with GI bleed and colitis. Started on antibiotics and did well. No abdominal pain, tolerating a diet. She underwent EGD and colonoscopy. She is on Carafate ongoing PPI. Time Spent with Patient Time attestation: Total time spent providing and/or coordinating discharge services: Exam Narrative: PHYSICAL EXAMINATION: Vital signs: Please see the chart General physical exam: patient feels tired and fatigued, no acute distress, well-nourished Head/eyes: Atraumatic, EOMI, PERRLA ENT: Moist mucous membranes, nasal passages clear Neck: Supple, full range of motion, trachea midline CVS: S1 + S2, regular rate and rhythm, no murmurs Respiratory: Bilaterally fair air entry in both lung mcnamara, mild B/L crackles, symmetric chest expansion, no distress Abdomen: Soft, + mild generalized abdominal tenderness on deep palpation, bowel sounds +ve, no organomegaly Extremities: No clubbing, no cyanosis, no edema, no calf tenderness Musculoskeletal: Moves all, adequate range of motion, no muscle spasms Skin: Warm, dry, no jaundice, no cyanosis Neurological: Awake, alert, oriented x 3, cranial nerves II-XII intact, no focal neurological deficits Psychiatric: Normal mood, non suicidal DS: Data Data Completed and Pending Labs on day of discharge: Prelimin
== END 2023-03-09 12:15 | disposition home or self-care (01) | DRG 381 ==
LOC: ANHED 19:49 → ANH2MED 20:39
PROVIDERS: Internal Medicine Gastroenterology; Admitting Provider Family Medicine; Emergency Provider Emergency Medicine; PCP Family Medicine; Visit Provider Chiropractor
PROC: 0DJ08ZZ Inspection of Upper Intestinal Tract, Via Natural or Artificial Opening Endoscopic (ICD-10-PCS; CPT 43235; principal; 2023-03-08 15:30)
DX: K22.11 Ulcer of esophagus with bleeding (principal); D62 Acute posthemorrhagic anemia; I47.1 Supraventricular tachycardia; E44.0 Moderate protein-calorie malnutrition; Z68.1 Body mass index [BMI] 19.9 or less, adult; Z20.822 Contact with and (suspected) exposure to COVID-19; N32.81 Overactive bladder; E78.5 Hyperlipidemia, unspecified; J44.9 Chronic obstructive pulmonary disease, unspecified; M54.12 Radiculopathy, cervical region; K44.9 Diaphragmatic hernia without obstruction or gangrene; K21.00 Gastro-esophageal reflux disease with esophagitis, without bleeding; K22.0 Achalasia of cardia; F41.9 Anxiety disorder, unspecified; F03.90 Unspecified dementia, unspecified severity, without behavioral disturbance, psychotic disturbance, mood disturbance, and anxiety; K52.9 Noninfective gastroenteritis and colitis, unspecified; D64.9 Anemia, unspecified; F17.210 Nicotine dependence, cigarettes, uncomplicated; M81.0 Age-related osteoporosis without current pathological fracture; K63.5 Polyp of colon; W19.XXXA Unspecified fall, initial encounter
CPT/HCPCS: 36415; 36430; 74177; 80048; 80053; 81001; 81479; 82274; 83605; 83735; 84100; 84439; 84443; 84480; 85025; 85610; 85730; 86850; 86870; 86880; 86900; 86901; 86902; 86906; 86922; 86971; 87040; 87077; 87086; 87088; 87186; 87637; 93005; 96361; 96374; 99285; A9270; J0696; J2405; J2543; J3370; J7030; J7040; J7050; J7120; P9016; Q9967

== ENCOUNTER 2023-09-14 11:28 | Observation (INO) | payer MEDICARE, SELFPAY ==
[2023-09-14] VITALS (14 sets, daily range): BP systolic 101–167; BP diastolic 47–118; PULSE 58–77; RESP 12–22; TEMP 36.4–36.7; O2SAT 93–100; BMI 16.2
--- NOTE | ~2023-09-14 | CT_ITS ---
EXAMINATION: CT abdomen pelvis w con DATE: 09/14/2023 13:34 INDICATION: Right flank pain. Right lower quadrant abdominal pain. TECHNIQUE: Computed tomography (CT) of the abdomen and pelvis was performed with 97 mL Omnipaque 350 intravenous contrast. Automated exposure control and iterative reconstruction technique were employed . The dose-length product was 158.80 mGy-cm. COMPARISON: CT abdomen and pelvis 03/05/2023 FINDINGS: The visualized portions of the lung bases demonstrate mild atelectasis. No pleural effusion . There is a right posterior diaphragmatic hernia containing fat. The heart size is normal. No perica rdial effusion. There is fluid in the esophagus. The liver, gallbladder, spleen, pancreas, and adrena l glands are normal. There are cysts in the kidneys measuring up to 5.3 cm on the left. There is calc ified atherosclerosis of the aorta and many of the other arteries. There are no dilated loops of kenny l. The appendix is normal. There are no pathologically enlarged lymph nodes. There is no free intrape ritoneal fluid. There is fat stranding in the inferior peritoneum. There is severe lumbar spondylosis . IMPRESSION: 1. Fat stranding in the inferior peritoneum, consistent with edema versus inflammation. Reviewed, dictated and finalized at location E. IMPRESSION: 1. Fat stranding in the inferior peritoneum, consistent with edema versus infla mmation.
[2023-09-14 11:55] LABS: Basophils Percent Auto 0.5 % (0.2-1.2); Eosinophils Percent Auto 0.5 % (0-4.4); Hematocrit 43.6 % (37.0-47.0); Hemoglobin 14.4 g/dL (12.0-15.0); Immature Granulocyte Absolute 0.02 K/mm3 (0.00-0.031); Immature Granulocyte Percent A 0.3 % (0-0.5); Lymphocytes Absolute Auto 1.28 K/mm3 (0.9-3.2); Lymphocytes Percent Auto 19.6 % (18.3-44.2); Mean Corpuscular Volume 99.8 fl (80-100); Mean Platelet Volume 10.4 fl (7.4-10.4); Monocytes Absolute Auto 0.3 K/mm3 (0.1-0.6); Monocytes Percent Auto 4.6 % (2.6-8.5); Neutrophils Absolute Auto 4.9 K/mm3 (1.3-6.7); Neutrophils Percent Auto 74.5 % (45.5-73.1); Platelet Count Result 190 k/mm3 (150-375); Red Blood Count 4.37 M/mm3 (4.2-5.4); Red Cell Distribution Width 13.9 % (11.5-14.5); White Blood Count 6.5 K/mm3 (4.5-10.0)
[2023-09-14 12:08] LABS: Appearance Urine Turbid (Clear); Bacteria Urine None Seen /hpf; Bilirubin Urine Negative (Negative); Blood Urine Negative (Negative); Color Urine Yellow (Yellow); Glucose Urine UA Negative (Negative); Ketones Urine Trace mg/dL (Negative); Leukocyte Esterase Ur Negative LEU/UL (Negative); Nitrate Urine Negative (Negative); Non Pathogenic Casts 0-2; Protein Urine Negative (Negative); RBC Urine 0-2 /hpf (0-2); Specific Grav Ur 1.019 (1.001-1.035); Squamous Epithelial Cell Urine None Seen /hpf (Few); Urobilinogen Urine 0.2 mg/dL (<2.0); WBC Urine 0-5 /hpf (0-3); pH Urine >=9.0 (5.0-9.0)
[2023-09-14 12:09] LABS: Add Urine Microscopic? YES
[2023-09-14 12:11] LABS: Alanine Aminotransferase 22 U/L (6-35); Albumin Level 4.4 g/dL (3.5-5.1); Alkaline Phosphatase 70 U/L (38-126); Anion Gap 5 mmol/L (4-12); Aspartate Amino Transferase 33 U/L (14-36); Bilirubin,Total 0.7 mg/dL (0.2-1.3); Blood Urea Nitrogen 29 mg/dL (7-17); Calcium 10.2 mg/dL (8.4-10.2); Carbon Dioxide 25 mmol/L (22-30); Chloride 109 mmol/L (98-107); Estimated Glomerular Filt Rate > 60; Glucose 127 mg/dL (65-110); Potassium 4.1 mmol/L (3.4-5.0); Sodium 139 mmol/L (137-145)
--- NOTE | 2023-09-14 12:42 | ED.BACK ---
HPI - Back Pain/Injury General Chief Complaint: Back Pain/Injury Stated Complaint: back pain, R flank pain Time Seen by Provider: 09/14/23 12:00 History of Present Illness HPI Narrative: Patient is a 78-year-old female with history of locally she here with right-sided flank pain. She states that the pain began about 2 hours prior to presentation to the hospital. It was initially located on the right flank, radiates to the middle of the back as well as down into the right lower quadrant. She denies any changes with food, denies any hematuria, dysuria, increased urinary frequency. She denies any diarrhea. No blood in stools. She denies any fever chills. She states she has had some associated nausea and dry heaving. She has never experienced similar pain in the past. Her family applied Salonpas patches over her right flank and provided her with 2 tablets of aspirin with no resolution of symptoms. No prior abdominal surgeries. Related Data Home Medications Medication Instructions Recorded Confirmed famotidine 40 mg tablet 40 mg PO BID 04/17/21 05/08/23 dexlansoprazole 60 mg 60 mg PO DAILY 12/05/22 05/08/23 capsule,biphase delayed release (Dexilant) melatonin 3 mg capsule 3 mg PO QHS 12/05/22 05/08/23 ferrous sulfate 325 mg (65 mg 325 mg PO BID 04/08/23 05/08/23 iron) tablet Allergies Allergy/AdvReac Type Severity Reaction Status Date / Time No Known Allergies Allergy Verified 05/08/23 13:50 Review of Systems Review of Systems: All systems reviewed & are unremarkable except as noted in HPI and below PMFSH Past Medical History Medical History Abnormal CT scan, gastrointestinal tract Achalasia of cardia Acute blood loss anemia Age-related osteoporosis without current pathological fracture Anemia Anxiety Arthritis Cataracts, bilateral Esophageal stenosis Esophageal ulcer Gastro-esophageal reflux disease with esophagitis Gastrointestinal ulcer History of esophageal dilatation HTN (hypertension), benign Memory loss Near syncope Osteoporosis Pheochromocytoma Pneumonia Tobacco abuse counseling Uterine fibroid UTI (urinary tract infection) Surgical History Surgical History History of breast biopsy (~1997) left History of cornea transplant Left eye History of esophageal surgery due to esophageal rupture 20+ yrs ago History of esophagogastroduodenoscopy (EGD) History of hysterectomy Hx of shoulder surgery lt shoulder Hx of tonsillectomy 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 Family lives across the street. She smokes a pack a day since age 18. Rare alcohol use. She is full code. She nominates her daughter to be the individual would make medical decisions for her if she is not able. Caffeine-coffee/soda Years smoked: 56 Smoking status: Current every day smoker Tobacco type: cigarettes Alcohol intake: current Drinks per week: 1 Substance use: never Substance use type: does not use Lack of Transportation: No Lack of Food: Never True Current Housing: I Have Housing Concerned About Future Housing: No Difficulty Paying Gas/Electric Bills: No Difficulty Paying for Meds: No Currently Unemployed: No Education: Bachelor's Degree Difficulty w/ Childcare or Family Care: No Living arrangements: with family Occupation/Education: retired Gender identity (if verbalized by the patient): F
[2023-09-14] MEDS: LACTATED RINGERS 1,000 ML 999 ML IV CONT (13:05)
[2023-09-14] MEDS: ONDANSETRON INJ 4 MG/2 ML VIAL IV PUSH (13:05)
[2023-09-14] MEDS: MORPHINE SULFATE (*CRX) 4 MG/ML INJ 2 MG IM (13:05)
[2023-09-14 13:21] LABS: Lactic Acid Reflex 0.8 mmol/L (0.7-2.0)
[2023-09-14 13:36] LABS: Lipase 141 U/L (23-300)
[2023-09-14] MEDS: metroNIDAZOLE 500 MG/ISO 100ML 500 MG/100 ML BAG 100 MG IVPB (17:41)
--- NOTE | 2023-09-14 19:51 | ADMGEN ---
This patient, Cathi Funez, was admitted to Medical Room 247-. Patient/family oriented to hospital policies and general routines including ID bracelet, bed and alarms, visiting hours, pain management, procedures, bathroom and other care routines, personal items, smoking policy, room service/diet, and visiting hours. Information on how to activate the Rapid Response Team has been discussed. Patient/Family are encouraged to report perceived risks to care and to ask questions if they do not understand what they are told or what they should do. Report received from DAVID Alberts in ER t [id number].
--- NOTE | 2023-09-15 01:11 | PM.IMHP ---
H&P: HPI History of Present Illness Date/Time: 09/15/23 01:11 Chief Complaint: 2 hours of Right flank pain Narrative: 78-year-old female with past medical history of dementia, anxiety, depression, insomnia, GERD with prior esophageal stricture and iron deficiency who presented to the ER with sudden onset of right flank pain 2 hours prior to arrival. Pain starts in the right flank and radiates to the midback according to the ER physician documentation. The patient herself is only oriented to person and the fact that she is in the hospital. She does not recall why she came into the hospital. She has no current complaints now. Documentation does not report any changes in stool. She is currently afebrile and denies any fevers or chills. She has had some nausea and dry heaves. She is on Zofran at home so has some issues with chronic nausea. She has never had similar pain to this. Family did try [id number] pain relieving patches into full-dose aspirin with no improvement in her symptoms. The patient has had a prior hysterectomy and left adrenalectomy. Patient had a EGD at our facility this past fall that demonstrated esophagitis. She had a EGD in June at an outside facility for food impaction. She denies any difficulty swallowing currently. Review of Systems Review of Systems: The patient did attempt to provide review of systems but given she is only oriented to person and the fact that she is in the hospital review of systems was limited. The patient does not even remember having any flank pain. She denies any recent vomiting. She does have a long history of nausea she denies any difficulty swallowing. [facility] Past Medical History Medical History (Updated 09/15/23 @ 01:26 by Ashlee Cain DO) Achalasia Achalasia of cardia Age-related osteoporosis without current pathological fracture Anemia Anxiety Arthritis Cataracts, bilateral Cervical radiculitis Dementia Emphysema/COPD Endothelial corneal dystrophy Esophageal ulcer Gastro-esophageal reflux disease with esophagitis Gastrointestinal ulcer History of esophageal stricture HTN (hypertension), benign Near syncope Osteoporosis Other drug induced secondary Parkinsonism Overactive bladder Pheochromocytoma SVT (supraventricular tachycardia) Tobacco abuse counseling Uterine fibroid UTI (urinary tract infection) Surgical History Surgical History (Updated 09/15/23 @ 01:24 by Ashlee Cain DO) History of breast biopsy (~1997) left History of colonoscopy with polypectomy History of cornea transplant Left eye History of esophageal dilatation History of esophageal surgery due to esophageal rupture 20+ yrs ago History of esophagogastroduodenoscopy (EGD) History of hysterectomy Hx of shoulder surgery lt shoulder Hx of tonsillectomy 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 Family lives across the street. She smokes a pack a day since age 18. Rare alcohol use. She is full code. She nominates her daughter to be the individual would make medical decisions for her if she is not able. Caffeine-coffee/soda Smoking packs per day: 0.4 Smoking cigarettes per day: 8.0 Years smoked: 56 Smoking pack-years: 22.40 Smoking status: Current every day smoker Tobacco type: cigarettes Additional smoking assessment comments: working on quitting Alcohol intake: never Substance use: never Substance use type: does not use Do You Feel Safe in your Home?: Yes Lack of Transporta
[2023-09-15 03:46] VITALS: BP 104/48; PULSE 60; RESP 16; TEMP 36.4; O2SAT 97
[2023-09-15 06:15] LABS: Hematocrit 43.5 % (37.0-47.0); Hemoglobin 13.9 g/dL (12.0-15.0); Mean Corpuscular Hemoglobin 32.7 pg (26-34); Mean Corpuscular Volume 102.4 fl (80-100); Mean Platelet Volume 10.3 fl (7.4-10.4); Platelet Count Result 173 k/mm3 (150-375); Red Blood Count 4.25 M/mm3 (4.2-5.4); Red Cell Distribution Width 14.1 % (11.5-14.5); White Blood Count 5.3 K/mm3 (4.5-10.0)
[2023-09-15] MEDS: SUCRALFATE SUSP 100 MG/ML 10 ML UDC 1000 MG PO ×4 (06:22→21:36)
[2023-09-15 06:25] LABS: Alanine Aminotransferase 21 U/L (6-35); Albumin Level 3.7 g/dL (3.5-5.1); Alkaline Phosphatase 59 U/L (38-126); Anion Gap 3 mmol/L (4-12); Aspartate Amino Transferase 31 U/L (14-36); Bilirubin,Total 0.5 mg/dL (0.2-1.3); Blood Urea Nitrogen 21 mg/dL (7-17); Calcium 9.7 mg/dL (8.4-10.2); Carbon Dioxide 28 mmol/L (22-30); Chloride 108 mmol/L (98-107); Estimated CRCL calculation 34 ml/min; Estimated Glomerular Filt Rate > 60; Glucose 88 mg/dL (65-110); Potassium 3.7 mmol/L (3.4-5.0); Sodium 139 mmol/L (137-145)
[2023-09-15] MEDS: SERTRALINE HCL 50 MG TABLET 100 MG PO (08:53)
[2023-09-15] MEDS: ASPIRIN 81 MG CHEWABLE TABLET PO (08:54)
[2023-09-15] MEDS: FAMOTIDINE 20 MG TABLET 40 MG PO ×2 (08:54→17:10)
[2023-09-15] MEDS: ALPRAZolam (*CRX) 0.25 MG TABLET PO (08:54)
[2023-09-15] MEDS: PANTOPRAZOLE 40 MG TABLET PO ×2 (08:54→17:11)
[2023-09-15] MEDS: FERROUS SULFATE 325 MG TABLET DR PO (08:54)
[2023-09-15 13:09] VITALS: PULSE 68; RESP 16; O2SAT 98
[2023-09-15 13:30] VITALS: BP 106/49; PULSE 65; RESP 16; TEMP 36.4; O2SAT 98
--- NOTE | 2023-09-15 13:39 | PM.IMPN ---
Progress Note: A&P Assessment and Plan (1) Abdominal pain: Qualifiers: Abdominal location: lower abdomen, unspecified Qualified Code(s): R10.30 - Lower abdominal pain, unspecified Code(s): R10.9 - Unspecified abdominal pain Status: Acute (2) Reflux esophagitis: Qualifiers: Esophagitis bleeding: unspecified whether hemorrhage Qualified Code(s): K21.00 - Gastro-esophageal reflux disease with esophagitis, without bleeding Code(s): K21.0 - Gastro-esophageal reflux disease with esophagitis Status: Acute (3) Cancer of intra-abdominal lymph nodes: Code(s): C77.2 - Secondary and unspecified malignant neoplasm of intra-abdominal lymph nodes Status: Acute (4) Abnormal abdominal CT scan: Code(s): R93.5 - Abnormal findings on diagnostic imaging of other abdominal regions, including retroperitoneum Status: Acute (5) Nausea & vomiting: Qualifiers: Vomiting type: unspecified Qualified Code(s): R11.2 - Nausea with vomiting, unspecified Code(s): R11.2 - Nausea with vomiting, unspecified Status: Acute Plan The patient does not recall having any flank pain CT scan a demonstrated fat stranding in the inferior peritoneum consistent with edema versus inflammation. reproducible tenderness palpation in the epigastric region History of esophageal achalasia status post dilatation Consult GI for evaluation Patient is on famotidine 40 mg b.i.d. p.o. Her last EGD was June 2023 for food impaction. Her EGD prior that demonstrated nonbleeding esophageal ulcers Subjective Date/time seen: 09/15/23 13:39 Interval history: I saw and examined the patient in present no patient's . Patient denies abdomen pain, dysuria, diarrhea nausea vomiting when I examined the patient. Patient states he has history of esophageal stricture, underwent esophageal dilatation. Patient has some epigastric pain, denies black emesis, black stools. Exam Narrative: GENERAL: Pleasant, in no acute distress. Well-nourished. - EYES: EOMI. Anicteric. - HENT: Moist mucous membranes. - LUNGS: Clear to auscultation bilaterally, no wheezing, rhonchi, or rales. - CARDIOVASCULAR: Regular rate and rhythm. No murmur. No JVD. - ABDOMEN: Soft, epigastric tender and non-distended. No palpable masses. - EXTREMITIES: No edema. Peripheral pulses 2+. Non-tender. - NEUROLOGIC: No focal neurological deficits. CN II-XII grossly intact. - PSYCHIATRIC: Awake, Alert and oriented x 3. Appropriate mood and affect. - SKIN: No rashes or lesions. Warm. - LYMPH: No cervical lymphadenopathy. Objective Data Vital Signs Vital Signs: Vital Signs - 24 hr 09/14/23 14:00 09/14/23 15:23 09/14/23 16:07 Temperature 97.8 F 97.8 F Pulse Rate 68 69 67 Respiratory Rate 14 13 14 Blood Pressure 120/60 118/64 116/58 L Pulse Oximetry 99 97 100 Oxygen Delivery 09/14/23 17:00 09/14/23 17:18 09/14/23 17:46 Temperature 97.9 F 97.8 F 97.6 F Pulse Rate 68 60 58 L Respiratory Rate 14 16 14 Blood Pressure 112/56 L 131/118 H 115/61 Pulse Oximetry 95 100 97 Oxygen Delivery 09/14/23 18:31 09/14/23 19:33 09/14/23 18:47 Temperature 97.9 F Pulse Rate 77 75 74 Respiratory Rate 18 14 22 H Blood Pressure 115/55 L 112/89 Pulse Oximetry 96 98 Oxygen Delivery 09/14/23 19:52 09/14/23 20:30 09/15/23 03:46 Temperature 98.1 F 97.5 F L Pulse Rate 61 60 Respiratory Rate 16 16 Blood Pressure 101/47 L 104/48 L Pulse Oximetry 93 97 Oxygen Delivery Room Air 09/15/23 13:09 09/15/23 13:30 Temperature 97.6 F Pulse Rate 68 65 Respiratory Rate 16 16 Blood Pressure 106/49 L Pulse Oximetry 98 98 Oxygen Delivery Room Air Intake/Output Intake/Output: Intake & Output 09/12/23 09/13/23 09/14/23 09/15/23 23:59 23:59 23:59 23:59 Intake Total 1150 320 Output Total 10 Balance 1140 320 Meds/Results Medications: Active Medications Generic Name Do
[2023-09-15] MEDS: SODIUM CHLORIDE 0.9% IV 1,000 ML 100 ML IV CONT (17:11)
[2023-09-15 21:10] VITALS: BP 121/57; PULSE 64; RESP 16; TEMP 36.1; O2SAT 97
[2023-09-15] MEDS: MIRTAZAPINE 15 MG TABLET PO (21:36)
[2023-09-15] MEDS: MELATONIN 3 MG TABLET PO (21:36)
[2023-09-16] MEDS: SODIUM CHLORIDE 0.9% IV 1,000 ML 100 ML IV CONT (03:30)
[2023-09-16 05:35] VITALS: BP 132/45; PULSE 61; RESP 16; TEMP 36.2; O2SAT 98
[2023-09-16] MEDS: SUCRALFATE SUSP 100 MG/ML 10 ML UDC 1000 MG PO (06:08)
--- NOTE | 2023-09-16 08:12 | WPDGICN ---
Assessment and Plan Assessment and plan (1) Achalasia: Code(s): K22.0 - Achalasia of cardia Status: Inactive Assessment and Plan: -Has known esophageal achalasia with history of G tube and follows with Dr. Schumacher in [place]. Last EGD June 2022 with a food impaction that was successfully removed, grade a esophagitis and dilation completed. -CT this admission noted fluid in the esophagus which this is consistent with known achalasia -not having any acute symptoms at this time of achalasia or food impaction. -would recommend routine follow-up with her regular college associate, Dr. Schumacher (2) Reflux esophagitis: Qualifiers: Esophagitis bleeding: unspecified whether hemorrhage Qualified Code(s): K21.00 - Gastro-esophageal reflux disease with esophagitis, without bleeding Code(s): K21.0 - Gastro-esophageal reflux disease with esophagitis Status: Acute Assessment and Plan: Continue home Dexilant 60 mg daily (3) Abnormal abdominal CT scan: Code(s): R93.5 - Abnormal findings on diagnostic imaging of other abdominal regions, including retroperitoneum Status: Acute (4) Nausea & vomiting: Qualifiers: Vomiting type: unspecified Qualified Code(s): R11.2 - Nausea with vomiting, unspecified Code(s): R11.2 - Nausea with vomiting, unspecified Status: Acute Assessment and Plan: -She is not having nausea and vomiting at this time -Observe (5) Dementia: Code(s): F03.90 - Unspecified dementia, unspecified severity, without behavioral disturbance, psychotic disturbance, mood disturbance, and anxiety Status: Acute (6) Anxiety and depression: Code(s): F41.9 - Anxiety disorder, unspecified; F32.A - Depression, unspecified Status: Acute GI Consult Note Consult date/time: 09/16/23 08:00 HPI: Cathi Funez is a 78 year old female at the request of the hospitalist for dysphagia. She has dementia. She has a history of GERD with reflux esophagitis and known achalasia. She is is established with a college associate, Dr. Schumacher. Last EGD 06/2023 and she was found to have food in the lower 30 esophagus with removal and grade a a esophagitis that was non bleeding-had dilation completed. She takes Dexilant 60 mg daily at home. She was admitted to the hospital for unspecified abdominal pain. At this time she is not complaining of abdominal pain. She denies any dysphagia, odynophagia, nausea or vomiting. Denies any GERD. When asked about nausea and vomiting at home prior to admission she denies this. She denies any constipation, diarrhea, melena or hematochezia. CT of the abdomen and compound pelvis completed this admission noted fat stranding in the inferior peritoneal a, consistent with edema versus inflammation and fluid in the esophagus (recs reviewed). CBC was normal. Review of Systems Review of Systems: All systems reviewed & are unremarkable except as noted in HPI and below ENT: Denies dysphagia Gastrointestinal: Gastrointestinal: Reports as per HPI [facility] Past Medical History Medical History (Updated 09/16/23 @ 08:32 by Kate Jiménez APRN) Achalasia Achalasia of cardia Age-related osteoporosis without current pathological fracture Anemia Anxiety Arthritis Cataracts, bilateral Cervical radiculitis Dementia Emphysema/COPD Endothelial corneal dystrophy Esophageal ulcer Gastro-esophageal reflux disease with esophagitis Gastrointestinal ulcer History of esophageal stricture HTN (hypertension), benign Near syncope Osteoporosis Other drug induced secondary Parkinsonism Overactive bladder Pheochromocytoma SVT (supraventricular tachycardia) Tobacco abuse counseling Uterine fibroid UTI (urinary tract infection) Surgical History Surgical History (Updated 09/15/23 @ 01:24 by Ashlee Cain DO) History of breast biopsy (~1997) left History of colonoscopy with polypectomy History of corne
[2023-09-16 08:37] VITALS: O2SAT 97
[2023-09-16] MEDS: FERROUS SULFATE 325 MG TABLET DR PO (09:12)
[2023-09-16] MEDS: FAMOTIDINE 20 MG TABLET 40 MG PO (09:12)
[2023-09-16] MEDS: SERTRALINE HCL 50 MG TABLET 100 MG PO (09:12)
[2023-09-16] MEDS: ASPIRIN 81 MG CHEWABLE TABLET PO (09:12)
[2023-09-16] MEDS: PANTOPRAZOLE 40 MG TABLET PO (09:12)
[2023-09-16] MEDS: ALPRAZolam (*CRX) 0.25 MG TABLET PO (09:12)
--- NOTE | 2023-09-16 10:56 | PM.DS ---
DS: Admitting Diagnosis Discharge Date 09/15 Admitting Diagnosis (1) Abdominal pain: ?Qualifiers: ?Abdominal location:?lower abdomen, unspecified? Qualified Code(s):?R10.30 - Lower abdominal pain, unspecified ?Code(s): R10.9 - Unspecified abdominal pain ?Status:?Acute (2) Reflux esophagitis: ?Qualifiers: ?Esophagitis bleeding:?unspecified whether hemorrhage? Qualified Code(s):?K21.00 - Gastro-esophageal reflux disease with esophagitis, without bleeding ?Code(s): K21.0 - Gastro-esophageal reflux disease with esophagitis ?Status:?Acute (3) Cancer of intra-abdominal lymph nodes: ?Code(s): C77.2 - Secondary and unspecified malignant neoplasm of intra-abdominal lymph nodes ?Status:?Acute (4) Abnormal abdominal CT scan: ?Code(s): R93.5 - Abnormal findings on diagnostic imaging of other abdominal regions, including retroperitoneum ?Status:?Acute (5) Nausea & vomiting: ?Qualifiers: ?Vomiting type:?unspecified? Qualified Code(s):?R11.2 - Nausea with vomiting, unspecified ?Code(s): R11.2 - Nausea with vomiting, unspecified DS: Discharge Diagnosis Discharge Diagnosis (1) Abdominal pain: Qualifiers: Abdominal location: lower abdomen, unspecified Qualified Code(s): R10.30 - Lower abdominal pain, unspecified Code(s): R10.9 - Unspecified abdominal pain Status: Acute (2) Reflux esophagitis: Qualifiers: Esophagitis bleeding: unspecified whether hemorrhage Qualified Code(s): K21.00 - Gastro-esophageal reflux disease with esophagitis, without bleeding Code(s): K21.0 - Gastro-esophageal reflux disease with esophagitis Status: Acute (3) Cancer of intra-abdominal lymph nodes: Code(s): C77.2 - Secondary and unspecified malignant neoplasm of intra-abdominal lymph nodes Status: Acute (4) Abnormal abdominal CT scan: Code(s): R93.5 - Abnormal findings on diagnostic imaging of other abdominal regions, including retroperitoneum Status: Acute (5) Nausea & vomiting: Qualifiers: Vomiting type: unspecified Qualified Code(s): R11.2 - Nausea with vomiting, unspecified Code(s): R11.2 - Nausea with vomiting, unspecified Status: Acute DS: Summary Hospital Course Hospital Course: Per H&P, 78-year-old female with past medical history of dementia, anxiety, depression, insomnia, GERD with? prior esophageal stricture and iron deficiency who presented to the ER with sudden onset of right flank pain 2 hours prior to arrival.? Pain starts in the right flank and radiates to the midback according to the ER physician documentation.? The patient herself is only oriented to person and the fact that she is in the hospital.? She does not recall why she came into the hospital.? She has no current complaints now.? Documentation does not report any changes in stool.? She is currently afebrile and denies any fevers or chills.? She has had some nausea and dry heaves.? She is on Zofran at home so has some issues with chronic nausea.? She has never had similar pain to this.? Family did try [id number] pain relieving patches into full-dose aspirin with no improvement in her symptoms.? The patient has had a prior hysterectomy and left adrenalectomy. Patient had a EGD at our facility this past fall that demonstrated esophagitis.? She had a EGD in June at an outside facility for food impaction.? She denies any difficulty swallowing currently. The patient does not recall having any flank pain CT scan a demonstrated fat stranding in the inferior peritoneum consistent with edema versus inflammation. reproducible tenderness palpation in the epigastric region History of esophageal achalasia status post dilatation Consult GI for evaluation Patient is on famotidine 40 mg b.i.d. p.o. Her last EGD was June 2023 for food impaction. Her EGD prior that demonstrated nonbleeding esophageal ulcers Appreciate
== END 2023-09-16 12:40 | disposition home or self-care (01) ==
LOC: ANHED 17:39 → ANH2MED 19:33
PROVIDERS: Emergency Medicine; Internal Medicine; Admitting Provider Internal Medicine; Emergency Provider Student in an Organized Health Care Education/Training Program; PCP Family Medicine; Visit Provider Hospitalist
DX: R10.30 Lower abdominal pain, unspecified (principal); K21.00 Gastro-esophageal reflux disease with esophagitis, without bleeding; C77.2 Secondary and unspecified malignant neoplasm of intra-abdominal lymph nodes; R93.5 Abnormal findings on diagnostic imaging of other abdominal regions, including retroperitoneum; R11.2 Nausea with vomiting, unspecified; F03.90 Unspecified dementia, unspecified severity, without behavioral disturbance, psychotic disturbance, mood disturbance, and anxiety; M81.0 Age-related osteoporosis without current pathological fracture; K22.0 Achalasia of cardia; D64.9 Anemia, unspecified; J44.9 Chronic obstructive pulmonary disease, unspecified; J43.9 Emphysema, unspecified; F41.9 Anxiety disorder, unspecified; F32.A Depression, unspecified; G47.00 Insomnia, unspecified; I10 Essential (primary) hypertension; Z90.710 Acquired absence of both cervix and uterus; F17.210 Nicotine dependence, cigarettes, uncomplicated; Z79.82 Long term (current) use of aspirin; Z79.899 Other long term (current) drug therapy
CPT/HCPCS: 36415; 74177; 80053; 81001; 83605; 83690; 85025; 85027; 96361; 96365; 96368; 96372; 96375; 99285; A9270; G0378; J0696; J1836; J2270; J2405; J7030; J7120; Q9967

== ENCOUNTER 2023-10-29 17:18 | Observation (INO) | payer MEDICARE, SELFPAY ==
--- NOTE | ~2023-10-29 | CT_ITS ---
EXAMINATION: CT abdomen pelvis w con DATE: 10/29/2023 19:44 INDICATION: diffuse abd pain, N/V/D TECHNIQUE: Computed tomography (CT) of the abdomen and pelvis was performed with 100 mL Omnipaque-350 intravenous contrast. Automated exposure control and iterative reconstruction technique were employe d. The dose-length product was 158.80 mGy-cm. COMPARISON: 09/14/2023. FINDINGS: Lower thorax: Coronary calcifications. Emphysematous/senescent change. Uncomplicated fat-containing r ight posterior diaphragmatic hernia. Liver: Normal. Biliary/Gallbladder: Gallbladder is normal. No bile duct dilation. Pancreas: Mild atrophy. Spleen: Normal. Adrenals:No mass. Kidneys: No suspicious mass, obstructing stone, or hydronephrosis. Bilateral simple cysts measuring u p to 5.3 cm on the left. GI tract: Patulous distal esophagus. Moderate distal esophageal and gastric wall edema. Mild colonic wall edema from the hepatic flexure to the rectum. No small or large bowel dilation. Normal appendix. Mesentery/Peritoneum: No ascites, mass, or free air. Mild, slightly improved inferior peritoneal fat stranding. Retroperitoneum: No mass. Atherosclerotic abdominal aortic and/or arterial calcifications. Pelvis: Normal urinary bladder. Absent uterus. Ovaries not visualized.. Soft Tissues: Soft tissues and body wall unremarkable. Bones: No acute osseous finding. IMPRESSION: Moderate esophagitis/gastritis. Mild colonic wall edema from the hepatic flexure to the rectum, may represent a component of colitis. Reviewed, dictated and finalized at location K.
[2023-10-29 17:19] VITALS: BP 140/72; PULSE 110; RESP 16; TEMP 36.5; O2SAT 97
--- NOTE | 2023-10-29 17:52 | ED.NAVMDI ---
HPI - Nausea/Vomiting/Diarrhea General Chief complaint: Nausea/Vomiting/Diarrhea <JENNIFER Escalante Last Filed: 10/29/23 17:59> Stated complaint: v/d <JENNIFER Escalante Last Filed: 10/29/23 17:59> Time Seen by Provider: 10/29/23 17:52 <JENNIFER Escalante Last Filed: 10/29/23 17:59> Focused HPI: Patient is a 78 y/o female who presents to the ED with c/o N/V/D. Patient reports she has been ill since Saturday night. She complains of nausea, vomiting, diarrhea. She states she has only been able to keep down small amounts of fluids at a time, complains of current nausea. Reports diffuse lower abdominal pain. States she feels very weak and dehydrated. Denies rectal bleeding, melena, fevers, cough, cold sx's, sick contacts, recent abx or foreign travel. GENERAL: Ill-appearing, thin/frail, actively dry heaving. HEAD: Normocephalic, atraumatic. CHEST: Clear to auscultation. ?No respiratory distress. HEART: Regular rate and rhythm. ABD: Abdomen somewhat firm throughout lower abdomen. Diffuse tenderness to palpation. Normoactive BS. NEURO: ?Alert and oriented x3. Patient screened in triage and initial orders placed.? ?Additional care and disposition to be based upon?diagnostic testing and treatment. <JENNIFER Escalante Last Filed: 10/29/23 17:59> Source: patient <JENNIFER Escalante Last Filed: 10/29/23 17:59> Mode of arrival: ambulatory <JENNIFER Escalante Last Filed: 10/29/23 17:59> Limitations: no limitations <JENNIFER Escalante Last Filed: 10/29/23 17:59> History of Present Illness HPI Narrative: patient is 78-year-old female who presents emergency department chief complaint of nausea vomiting and diarrhea. Patient reports symptoms started Saturday night reports he has had multiple bouts of diarrhea multiple bouts of vomiting. Patient reports not really been able to keep much down and reports that she lives at home with her who has had a prior stroke the patient does have prior history of dementia and has had problems taking her medications in the past. <Tae Carbajal MD - Last Filed: 10/29/23 21:12> Related Data Home medications: Home Medications Medication Instructions Recorded Confirmed dexlansoprazole 60 mg 60 mg PO DAILY 12/05/22 09/14/23 capsule,biphase delayed release (Dexilant) melatonin 3 mg capsule 3 mg PO QHS 12/05/22 09/14/23 ferrous sulfate 325 mg (65 mg 325 mg PO DAILY 04/08/23 09/14/23 iron) tablet alprazolam 0.25 mg tablet 0.25 mg PO DAILY 09/14/23 09/14/23 aspirin 81 mg tablet 81 mg PO DAILY 09/14/23 09/14/23 ondansetron 4 mg disintegrating 4 mg PO PRN PRN Nausea 09/14/23 09/14/23 tablet <Rosario Flores PA-C - Last Filed: 10/29/23 17:59> Allergies/Adverse reactions: Allergies Allergy/AdvReac Type Severity Reaction Status Date / Time No Known Allergies Allergy Verified 10/29/23 18:59 <Rosario Flores PA-C - Last Filed: 10/29/23 17:59> Review of Systems Review of Systems: A 10 system review of systems was completed on the patient and is negative except for what is stated in the HPI. Nursing and ancillary documentation was reviewed. <Tae Carbajal MD - Last Filed: 10/29/23 21:12> [facility], [facility] Past Medical History Medical History: Medical History Achalasia Achalasia of cardia Age-related osteoporosis without current pathological fracture Anemia Anxiety Arthritis Cataracts, bilateral Cervical radiculitis Dementia Emphysema/COPD Endothelial corneal dystrophy Esophageal ulcer Gastro-esophageal reflux disease with esophagitis Gastrointestinal ulcer History of esophageal stricture HTN (hypertension), benign Near syncope Osteoporosis Other drug induced secondary Parkinsonism Overactive bladder Pheochromocytoma SVT (supraventricular tachycardia) T
[2023-10-29 18:35] VITALS: BP 142/67; PULSE 74; RESP 16; O2SAT 100
[2023-10-29] MEDS: SODIUM CHLORIDE 0.9% IV 1,000 ML 999 ML IV CONT ×2 (18:35→19:26)
[2023-10-29] MEDS: ONDANSETRON INJ 4 MG/2 ML VIAL IV PUSH (18:39)
[2023-10-29 18:54] LABS: Basophils Percent Auto 0.5 % (0.2-1.2); Eosinophils Percent Auto 0.3 % (0-4.4); Hematocrit 48.4 % (37.0-47.0); Hemoglobin 16.6 g/dL (12.0-15.0); Immature Granulocyte Absolute 0.02 K/mm3 (0.00-0.031); Immature Granulocyte Percent A 0.2 % (0-0.5); Lymphocytes Absolute Auto 2.06 K/mm3 (0.9-3.2); Lymphocytes Percent Auto 23.6 % (18.3-44.2); Mean Corpuscular HGB Conc 34.3 g/dl (32-36); Mean Corpuscular Hemoglobin 33.1 pg (26-34); Mean Corpuscular Volume 96.6 fl (80-100); Mean Platelet Volume 9.6 fl (7.4-10.4); Monocytes Absolute Auto 0.6 K/mm3 (0.1-0.6); Monocytes Percent Auto 7.2 % (2.6-8.5); Neutrophils Percent Auto 68.2 % (45.5-73.1); Platelet Count Result 221 k/mm3 (150-375); Red Blood Count 5.01 M/mm3 (4.2-5.4); Red Cell Distribution Width 12.6 % (11.5-14.5); White Blood Count 8.7 K/mm3 (4.5-10.0)
[2023-10-29 19:06] LABS: Alanine Aminotransferase 22 U/L (6-35); Albumin Level 4.8 g/dL (3.5-5.1); Alkaline Phosphatase 71 U/L (38-126); Anion Gap 12 mmol/L (4-12); Aspartate Amino Transferase 30 U/L (14-36); Bilirubin,Total 0.8 mg/dL (0.2-1.3); Blood Urea Nitrogen 21 mg/dL (7-17); Calcium 11.1 mg/dL (8.4-10.2); Carbon Dioxide 19 mmol/L (22-30); Chloride 109 mmol/L (98-107); Creatine Kinase 33 U/L (30-135); Estimated CRCL calculation 41 ml/min; Estimated Glomerular Filt Rate > 60; Glucose 149 mg/dL (65-110); Lipase 125 U/L (23-300); Magnesium 2.2 mg/dL (1.6-2.3); Potassium 3.7 mmol/L (3.4-5.0); Sodium 140 mmol/L (137-145)
[2023-10-29 19:12] LABS: Lactic Acid Reflex 1.4 mmol/L (0.7-2.0)
[2023-10-29 19:41] LABS: Influenza A QL RT-PCR Negative (Negative); Influenza B QL RT-PCR Negative (Negative); RSV RNA, RT-PCR Negative (Negative); SARS-CoV-2 RNA PCR Negative (Negative)
[2023-10-29 19:56] VITALS: BP 135/66; PULSE 76; RESP 16; TEMP 36.3; O2SAT 100
[2023-10-29 21:02] VITALS: BP 129/106; PULSE 79; RESP 16; O2SAT 100
--- NOTE | 2023-10-29 21:02 | PM.IMHP ---
H&P: HPI History of Present Illness Date/Time: 10/29/23 21:02 Chief Complaint: n/v/d Narrative: This is a 78-year-old female with past medical history significant for COPD/emphysema, generalized anxiety disorder, tobacco dependence. Patient presents to the emergency room with 3 days of nausea vomiting diarrhea unable to keep anything down denies any abdominal pain no fevers no rigors no chills no cough no sputum production patient had been in her usual state of health up until this point, no coffee-ground emesis no hematemesis no melena no bright red blood per rectum. Preliminary workup was significant for CT of abdomen and pelvis with area of colitis. Patient has been admitted for further evaluation management and treatment. EXAMINATION: CT abdomen pelvis w con DATE: 10/29/2023 19:44 INDICATION: diffuse abd pain, N/V/D TECHNIQUE: Computed tomography (CT) of the abdomen and pelvis was performed with 100 mL Omnipaque-350 intravenous contrast. Automated exposure control and iterative reconstruction technique were employed. The dose-length product was 158.80 mGy-cm. COMPARISON: 09/14/2023. FINDINGS: Lower thorax: Coronary calcifications. Emphysematous/senescent change. Uncomplicated fat-containing right posterior diaphragmatic hernia. Liver: Normal.? Biliary/Gallbladder: Gallbladder is normal. No bile duct dilation. Pancreas: Mild atrophy. Spleen: Normal. Adrenals:No mass. Kidneys: No suspicious mass, obstructing stone, or hydronephrosis. Bilateral simple cysts measuring up to 5.3 cm on the left. GI tract: Patulous distal esophagus. Moderate distal esophageal and gastric wall edema. Mild colonic wall edema from the hepatic flexure to the rectum. No small or large bowel dilation. Normal appendix. Mesentery/Peritoneum: No ascites, mass, or free air. Mild, slightly improved inferior peritoneal fat stranding. Retroperitoneum: No mass. Atherosclerotic abdominal aortic and/or arterial calcifications. Pelvis: Normal urinary bladder. Absent uterus. Ovaries not visualized.. Soft Tissues: Soft tissues and body wall unremarkable. Bones:? No acute osseous finding. IMPRESSION: Moderate esophagitis/gastritis. Mild colonic wall edema from the hepatic flexure to the rectum, may represent a component of colitis. Review of Systems Review of Systems: Nausea vomiting diarrhea Constitutional: Constitutional: Denies chills, Denies fever(s), Denies malaise, Denies night sweats, Reports poor appetite and Reports weakness Eyes: Eyes: Denies change in vision ENT: Denies dysphagia and Denies odynophagia Cardiovascular: Cardiovascular: Denies chest pain, Reports lightheadedness and Denies palpitations Respiratory: Respiratory: Denies cough and Denies dyspnea Gastrointestinal: Gastrointestinal: Denies abdominal pain, Reports diarrhea, Reports nausea and Reports vomiting Genitourinary: Genitourinary: Denies dysuria Musculoskeletal: Musculoskeletal: Denies myalgias Integumentary/Breasts: Skin/Breast: Denies rash Neurologic: Denies focal weakness and Denies Sensory deficit (Neuro) Psychiatric: Psychiatric: Reports no additional psychiatric complaints and Reports as per HPI Endocrine: Endocrine: Denies cold intolerance, Denies heat intolerance, Denies polyphagia, Denies polydipsia, Denies polyuria and Denies palpitations Hematologic/Lymphatic: Hematologic/Lymphatic: Reports no additional hematologic/lymphatic complaints and Reports as per HPI Allergic/Immunologic: Allergic/Immunologic: Reports no additional allergic/immunologic complaints and Reports as per HPI [facility] Past Medical History Medical History Achalasia Achalasia of cardia Age-related osteoporosis without current pathological fracture Anemia Anxiety Arthritis Cataracts, bilateral Cervical radiculitis Dementia Emphysema/COPD Endothelial corneal dystrophy Esophageal ulcer Gastro-esophageal reflux disease wit
[2023-10-29] MEDS: metroNIDAZOLE 500 MG/ISO 100ML 500 MG/100 ML BAG 100 MG IVPB (21:36)
[2023-10-29] MEDS: SODIUM CHLORIDE 0.9% IV 1,000 ML 75 ML IV CONT (21:37)
[2023-10-29 21:47] LABS: Appearance Urine Clear (Clear); Bilirubin Urine Negative (Negative); Blood Urine Negative (Negative); Color Urine Yellow (Yellow); Glucose Urine UA Negative (Negative); Ketones Urine Negative (Negative); Leukocyte Esterase Ur Negative LEU/UL (Negative); Nitrate Urine Negative (Negative); Protein Urine Negative (Negative); Urobilinogen Urine 0.2 mg/dL (<2.0)
[2023-10-29 22:01] LABS: Add Urine Microscopic? NO; Specific Grav Ur 1.032 (1.001-1.035)
[2023-10-29 22:09] VITALS: BP 126/70; PULSE 76; RESP 16; O2SAT 99
[2023-10-29 22:38] VITALS: BP 134/55; PULSE 75; RESP 20; TEMP 36.5; O2SAT 100; BMI 17.5
--- NOTE | 2023-10-29 22:39 | ADMGEN ---
This patient, Cathi Funez, was admitted to [facility] Surg Room 330-02. Patient/family oriented to hospital policies and general routines including ID bracelet, bed and alarms, visiting hours, pain management, procedures, bathroom and other care routines, personal items, smoking policy, room service/diet, and visiting hours. Information on how to activate the Rapid Response Team has been discussed. Patient/Family are encouraged to report perceived risks to care and to ask questions if they do not understand what they are told or what they should do.
[2023-10-30 05:30] VITALS: BP 128/59; PULSE 71; RESP 20; TEMP 36.3; O2SAT 96
[2023-10-30] MEDS: SODIUM CHLORIDE 0.9% IV 1,000 ML 75 ML IV CONT (05:37)
[2023-10-30] MEDS: metroNIDAZOLE 500 MG/ISO 100ML 500 MG/100 ML BAG 100 MG IVPB (05:37)
[2023-10-30 08:37] VITALS: O2SAT 98
[2023-10-30] MEDS: ALPRAZolam (*CRX) 0.25 MG TABLET PO (08:37)
[2023-10-30] MEDS: SERTRALINE HCL 50 MG TABLET 100 MG PO (08:37)
[2023-10-30] MEDS: ASPIRIN 81 MG CHEWABLE TABLET PO (08:37)
[2023-10-30] MEDS: PANTOPRAZOLE 40 MG TABLET PO (08:37)
[2023-10-30] MEDS: FERROUS SULFATE 325 MG TABLET DR BY MOUTH (08:37)
[2023-10-30 11:06] VITALS: BMI 17.5
--- NOTE | 2023-10-30 13:26 | PM.DS ---
DS: Admitting Diagnosis Discharge Date October 30, 2023 Admitting Diagnosis Nausea vomiting diarrhea DS: Discharge Diagnosis Discharge Diagnosis (1) Colitis: Code(s): K52.9 - Noninfective gastroenteritis and colitis, unspecified Status: Acute (2) Gastroenteritis: Code(s): K52.9 - Noninfective gastroenteritis and colitis, unspecified Status: Resolved (3) Weakness: Code(s): R53.1 - Weakness Status: Resolved (4) Weight loss, abnormal: Code(s): R63.4 - Abnormal weight loss Status: Resolved DS: Summary Hospital Course Hospital Course: 78-year-old female with past medical history dementia, anxiety, accolade NATALI, hypertension presents with nausea vomiting and nonbloody diarrhea for approximately 3 days. Was unable to tolerate p.o. intake. CT abdomen pelvis demonstrated esophagitis/gastritis and possible colitis. Was admitted overnight on 10/29/2023 due to the inability to tolerate p.o. intake. She was administered ceftriaxone and Flagyl and provided IV fluid resuscitation. The patient on 10/29 is tolerating a regular oral diet and is stable for discharge to home. Unable to obtain stool samples as her diarrhea has resolved. She is sent home in stable condition a 3 day course of levofloxacin. Adverse effects, risks, benefits discussed with the patient to which he understands and agrees to the above plan. Knows to return to the ER if she has worsening/return of symptoms. She is to follow with her PCP within 2 weeks to which she agrees. Patient was full code during the admission. Time Spent with Patient Time attestation: Total time spent providing and/or coordinating discharge services: Exam Const: General: cooperative and no acute distress Resp: Effort & Inspection: normal respiratory effort Auscultation: clear to auscultation bilaterally Cardio: Rate: regular rate Rhythm: regular rhythm Heart sounds: S1 normal heart sound present and S2 normal heart sound present GI: GI Palp: No abdominal tenderness Auscultation: normal bowel sounds DS: Data Data Completed and Pending Labs on day of discharge: Labs from last 24 hours 10/29/23 10/29/23 10/29/23 21:32 18:52 18:41 WBC RBC Hgb Hct MCV MCH MCHC RDW Plt Count MPV Immature Gran % (Auto) Neut % (Auto) Lymph % (Auto) [place] % (Auto) Eos % (Auto) Baso % (Auto) Lymph # (Auto) [place] # (Auto) Eos # (Auto) Baso # (Auto) Abs Immat Gran (auto) Absolute Neuts (auto) Absolute Nucleated RBC Nucleated RBC % Sodium Potassium Chloride Carbon Dioxide Anion Gap BUN Creatinine Estim Creat Clear Calc Estimated GFR Glucose Lactic Acid 1.4 Calcium Magnesium Total Bilirubin AST ALT Alkaline Phosphatase Total Creatine Kinase Cancelled Total Protein 8.0 Albumin 4.8 Lipase 125 Urine Color Yellow Urine Appearance Clear Urine pH 7.0 Ur Specific [place] 1.032 Urine Protein Negative Urine Glucose (UA) Negative Urine Ketones Negative Ur Blood (Man) Negative Urine Nitrate Negative Urine Bilirubin Negative Urine Urobilinogen 0.2 Leukocyte Esterase Rfl Negative Influenza A (RT-PCR) Negative Influenza B (RT-PCR) Negative RSV (RT-PCR) Negative SARS-CoV-2 RNA (RT-PCR) Negative 10/29/23 18:41 WBC 8.7 RBC 5.01 Hgb 16.6 H Hct 48.4 H MCV 96.6 MCH 33.1 MCHC 34.3 RDW 12.6 Plt Count 221 MPV 9.6 Immature Gran % (Auto) 0.2 Neut % (Auto) 68.2 Lymph % (Auto) 23.6 [place] % (Auto) 7.2 Eos % (Auto) 0.3 Baso % (Auto) 0.5 Lymph # (Auto) 2.06 [place] # (Auto) 0.6 Eos # (Auto) 0.0 Baso # (Auto) 0.0 Abs Immat Gran (auto) 0.02 Absolute Neuts (auto) 6.0 Absolute Nucleated RBC 0.000 Nucleated RBC % 0.0 Sodium 140 Potassium 3.7 Chloride 109 H Carbon Dioxide 19 L Anion Gap 12 BUN 21 H Creatinine 0.70 Estim Creat C
[2023-10-30 13:50] VITALS: BP 120/56; PULSE 66; RESP 16; TEMP 37.3; O2SAT 97
== END 2023-10-30 14:10 | disposition home or self-care (01) ==
LOC: ANHED 21:23 → ANH3MEDSUR 22:29
PROVIDERS: Physician Assistant; Admitting Provider Internal Medicine; Emergency Provider Emergency Medicine; PCP Family Medicine; Visit Provider General Practice
DX: K52.9 Noninfective gastroenteritis and colitis, unspecified (principal); R53.1 Weakness; R63.4 Abnormal weight loss; Z68.1 Body mass index [BMI] 19.9 or less, adult; J44.9 Chronic obstructive pulmonary disease, unspecified; J43.9 Emphysema, unspecified; K22.2 Esophageal obstruction; I10 Essential (primary) hypertension; F03.90 Unspecified dementia, unspecified severity, without behavioral disturbance, psychotic disturbance, mood disturbance, and anxiety; M81.0 Age-related osteoporosis without current pathological fracture; D64.9 Anemia, unspecified; F41.1 Generalized anxiety disorder; K21.00 Gastro-esophageal reflux disease with esophagitis, without bleeding; F17.210 Nicotine dependence, cigarettes, uncomplicated; Z87.11 Personal history of peptic ulcer disease; Z79.82 Long term (current) use of aspirin; Z20.822 Contact with and (suspected) exposure to COVID-19
CPT/HCPCS: 36415; 74177; 80053; 81003; 82550; 83605; 83690; 83735; 85025; 87040; 87637; 96361; 96365; 96366; 96375; 99285; A9270; G0378; J0696; J1836; J2405; J7030; Q9967

== ENCOUNTER 2024-02-09 13:15 | Emergency (ER) | payer MEDICARE, SELFPAY ==
--- NOTE | ~2024-02-09 | CT_ITS ---
EXAMINATION: CT abdomen pelvis w con DATE: 02/09/2024 17:02 INDICATION: abdominal pain, n/v/d TECHNIQUE: Computed tomography (CT) of the abdomen and pelvis was performed with 100 mL Omnipaque-350 intravenous contrast. Automated exposure control and iterative reconstruction technique were employe d. The dose-length product was 155.69 mGy-cm. COMPARISON: 10/29/2023. FINDINGS: Lower thorax: Coronary calcifications. Minimal right middle lobe scar. Small fat-containing right pos terior diaphragmatic hernia. Liver: Normal. Biliary/Gallbladder: Gallbladder is normal. No bile duct dilation. Pancreas: Mild atrophy. Spleen: Normal. Adrenals:No mass. Kidneys: No suspicious mass, obstructing stone, or hydronephrosis. Bilateral simple renal cysts measu ring up to 5.3 cm in the left lower pole. GI tract: Patulous distal esophagus. Moderate distal esophageal and gastric wall edema. Mild colonic wall edema. No small or large bowel dilation. Normal appendix. Mesentery/Peritoneum: No ascites, mass, or free air. Mild nonspecific mesenteric edema Retroperitoneum: No mass. Atherosclerotic abdominal aortic and/or arterial calcifications. Pelvis: Normal urinary bladder. Uterus and ovaries not confidently visualized. Soft Tissues: Soft tissues and body wall unremarkable. Bones: No acute osseous finding. IMPRESSION: Moderate esophagitis/gastritis. Mild colonic wall edema, may reflect a component of colitis. No other acute abdominopelvic process detected. Reviewed, dictated and finalized at [facility].
[2024-02-09 13:45] VITALS: BP 142/66; PULSE 85; RESP 16; TEMP 36.5; O2SAT 97
--- NOTE | 2024-02-09 15:52 | ECG_ITS ---
Test Date: 2024-02-09 16:33:16 Measurements Intervals [place] Rate: 76 P: 67 CA: 162 QRS: 74 QRSD: 79 T: 61 QT: 380 QTc: 429 Interpretive Statements SINUS RHYTHM PREVIOUS ANTERIOR MYOCARDIAL INFARCTION , OF INDETERMINATE AGE [30 ms Q WAVE IN V3/V4, OR R < 0.2 mV IN V4] No previous ECG available for comparison Electronically Signed On 02-11-2024 07:11:25 CDT by Zacarias Pacheco M.D.
--- NOTE | 2024-02-09 15:55 | ED.WEAKNESS ---
HPI - Weakness General Chief complaint: Weakness Stated complaint: weakness Time Seen by Provider: 02/09/24 15:21 History of Present Illness HPI Narrative: 78-year-old female with history of dementia, esophageal achalasia presenting with nausea, vomiting, diarrhea. Patient's is at bedside and is helping with the history. States that she often struggles with nausea and vomiting due to her achalasia. Unfortunately, it has been worse over the last few days she feels like she can not keep anything down they were worried she is dehydrated. States that she has also had diarrhea today. Has had intermittent lower abdominal pain. No fevers, dysuria, hematuria, flank pain, chest pain, shortness of breath, lightheadedness, Leg swelling. Related Data Home Medications Medication Instructions Recorded Confirmed dexlansoprazole 60 mg 60 mg PO DAILY 12/05/22 10/29/23 capsule,biphase delayed release (Dexilant) melatonin 3 mg capsule 3 mg PO QHS 12/05/22 10/29/23 ferrous sulfate 325 mg (65 mg 325 mg PO DAILY 04/08/23 10/29/23 iron) tablet alprazolam 0.25 mg tablet 0.25 mg PO DAILY 09/14/23 10/29/23 aspirin 81 mg tablet 81 mg PO DAILY 09/14/23 10/29/23 Allergies Allergy/AdvReac Type Severity Reaction Status Date / Time No Known Allergies Allergy Verified 02/09/24 13:16 Review of Systems Review of Systems: All systems reviewed & are unremarkable except as noted in HPI and below PMFSH Past Medical History Medical History Achalasia Achalasia of cardia Age-related osteoporosis without current pathological fracture Anemia Anxiety Arthritis Cataracts, bilateral Cervical radiculitis Dementia Emphysema/COPD Endothelial corneal dystrophy Esophageal ulcer Gastro-esophageal reflux disease with esophagitis Gastrointestinal ulcer History of esophageal stricture HTN (hypertension), benign Near syncope Osteoporosis Other drug induced secondary Parkinsonism Overactive bladder Pheochromocytoma SVT (supraventricular tachycardia) Tobacco abuse counseling Uterine fibroid UTI (urinary tract infection) Surgical History Surgical History History of breast biopsy (~1997) left History of colonoscopy with polypectomy History of cornea transplant Left eye History of esophageal dilatation History of esophageal surgery due to esophageal rupture 20+ yrs ago History of esophagogastroduodenoscopy (EGD) History of hysterectomy Hx of shoulder surgery lt shoulder Hx of tonsillectomy 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 Family lives across the street. She smokes a pack a day since age 18. Rare alcohol use. She is full code. She nominates her daughter to be the individual would make medical decisions for her if she is not able. Caffeine-coffee/soda Smoking packs per day: 1 Smoking cigarettes per day: 20.0 Years smoked: 60 Smoking pack-years: 60.00 Smoking status: Current every day smoker Tobacco type: cigarettes Additional smoking assessment comments: working on quitting Alcohol intake: never Substance use: never Substance use type: does not use Do You Feel Safe in your Home?: Yes Lack of Transportation: No Lack of Food: Never True Current Housing: I Have Housing Concerned About Future Housing: No Difficulty Paying Gas/Electric Bills: No Difficulty Paying for Meds: No Currently Unemployed: No
[2024-02-09 16:09] LABS: Basophils Absolute Auto 0.1 K/mm3 (0.0-0.1); Basophils Percent Auto 0.5 % (0.2-1.2); Eosinophils Percent Auto 0.1 % (0-4.4); Hematocrit 46.9 % (37.0-47.0); Hemoglobin 16.1 g/dL (12.0-15.0); Immature Granulocyte Absolute 0.02 K/mm3 (0.00-0.031); Immature Granulocyte Percent A 0.2 % (0-0.5); Lymphocytes Absolute Auto 1.07 K/mm3 (0.9-3.2); Lymphocytes Percent Auto 10.6 % (18.3-44.2); Mean Corpuscular HGB Conc 34.3 g/dl (32-36); Mean Corpuscular Hemoglobin 33.5 pg (26-34); Mean Corpuscular Volume 97.7 fl (80-100); Mean Platelet Volume 9.4 fl (7.4-10.4); Monocytes Absolute Auto 0.4 K/mm3 (0.1-0.6); Monocytes Percent Auto 4.3 % (2.6-8.5); Neutrophils Absolute Auto 8.5 K/mm3 (1.3-6.7); Neutrophils Percent Auto 84.3 % (45.5-73.1); Platelet Count Result 186 k/mm3 (150-375); Red Cell Distribution Width 13.2 % (11.5-14.5); White Blood Count 10.1 K/mm3 (4.5-10.0)
[2024-02-09] MEDS: SODIUM CHLORIDE 0.9% IV 1,000 ML 999 ML IV CONT (16:14)
[2024-02-09] MEDS: FAMOTIDINE 20 MG/2 ML VIAL IV PUSH (16:16)
[2024-02-09] MEDS: ONDANSETRON INJ 4 MG/2 ML VIAL IV PUSH (16:17)
[2024-02-09 16:21] LABS: Alanine Aminotransferase 17 U/L (6-35); Albumin Level 4.5 g/dL (3.5-5.1); Alkaline Phosphatase 79 U/L (38-126); Anion Gap 11 mmol/L (4-12); Aspartate Amino Transferase 30 U/L (14-36); Bilirubin,Total 0.9 mg/dL (0.2-1.3); Blood Urea Nitrogen 23 mg/dL (7-17); Calcium 10.1 mg/dL (8.4-10.2); Carbon Dioxide 25 mmol/L (22-30); Chloride 103 mmol/L (98-107); Estimated CRCL calculation 38 ml/min; Estimated Glomerular Filt Rate > 60; Glucose 100 mg/dL (65-110); Lipase 107 U/L (23-300); Potassium 4.5 mmol/L (3.4-5.0); Sodium 139 mmol/L (137-145)
[2024-02-09 16:29] VITALS: PULSE 74
[2024-02-09 17:23] LABS: Add Urine Microscopic? NO; Appearance Urine Clear (Clear); Bilirubin Urine Negative (Negative); Blood Urine Negative (Negative); Color Urine Yellow (Yellow); Glucose Urine UA Negative (Negative); Ketones Urine 1+ mg/dL (Negative); Leukocyte Esterase Ur Negative LEU/UL (Negative); Nitrate Urine Negative (Negative); Protein Urine Negative (Negative); Specific Grav Ur 1.038 (1.001-1.035); Urobilinogen Urine 0.2 mg/dL (<2.0)
[2024-02-09 18:29] VITALS: BP 131/68; PULSE 82; RESP 16; O2SAT 98
== END 2024-02-09 18:30 | disposition home or self-care (01) ==
PROVIDERS: Emergency Provider Emergency Medicine; PCP Family Medicine
DX: K52.9 Noninfective gastroenteritis and colitis, unspecified (principal); K21.00 Gastro-esophageal reflux disease with esophagitis, without bleeding; K29.70 Gastritis, unspecified, without bleeding; F03.90 Unspecified dementia, unspecified severity, without behavioral disturbance, psychotic disturbance, mood disturbance, and anxiety; K22.0 Achalasia of cardia; I10 Essential (primary) hypertension; J43.9 Emphysema, unspecified; M81.0 Age-related osteoporosis without current pathological fracture; M19.90 Unspecified osteoarthritis, unspecified site; N32.81 Overactive bladder; G21.19 Other drug induced secondary parkinsonism; F17.210 Nicotine dependence, cigarettes, uncomplicated; Z94.7 Corneal transplant status; Z87.440 Personal history of urinary (tract) infections; Z86.010 Personal history of colon polyps; Z86.2 Personal history of diseases of the blood and blood-forming organs and certain disorders involving the immune mechanism; Z90.710 Acquired absence of both cervix and uterus; Z79.899 Other long term (current) drug therapy; Z79.82 Long term (current) use of aspirin
CPT/HCPCS: 36415; 74177; 80053; 81003; 83605; 83690; 85025; 93005; 96361; 96374; 96375; 99284; J2405; J7030; Q9967

== ENCOUNTER 2024-02-21 10:54 | Outpatient (CLI) | payer MEDICARE, SELFPAY ==
--- NOTE | ~2024-02-21 | XR_ITS ---
AP view of the pelvis and AP and lateral views of the right hip Clinical history: Pain Findings: No acute fracture or dislocation is seen. Osseous alignment is anatomic. Bilateral hip and SI joint spaces are preserved. Soft tissues are unremarkable. Impression: No significant abnormality is seen. Reviewed, dictated and finalized at location . Impression: No significant abnormality is seen.
== END 2024-02-21 10:55 | disposition home or self-care (01) ==
LOC: GOSHIMG 10:56
PROVIDERS: PCP Family Medicine; Visit Provider Nurse Practitioner Family
DX: M25.551 Pain in right hip (principal)
CPT/HCPCS: 73502

== ENCOUNTER 2024-05-11 11:23 | Emergency (ER) | payer MEDICARE, SELFPAY ==
[2024-05-11] VITALS (9 sets, daily range): BP systolic 118–131; BP diastolic 61–78; PULSE 69–112; RESP 12–19; TEMP 36.2–36.5; O2SAT 95–99
--- NOTE | ~2024-05-11 | XR_ITS ---
EXAMINATION: XR chest 2V DATE: 05/11/2024 13:36 INDICATION: Weakness. TECHNIQUE: Frontal and lateral views of the chest were obtained. COMPARISON: Chest single view 02/02/2020 FINDINGS: There is no pneumonia, pleural effusion, or pneumothorax. The heart size is normal. There a re surgical clips in the mediastinum. IMPRESSION: 1. No acute cardiopulmonary disease. Reviewed, dictated and finalized at location A. AVER
--- NOTE | ~2024-05-11 | CT_ITS ---
CT abdomen pelvis w con Ordering provider: Racheal Peralta MD History: 78 years Female with . vomiting, diarrhea, epigastric pain . Comparison: None. Technique: CT abdomen and pelvis with IV and without oral contrast. Automated exposure control and it erative reconstruction technique were employed. The dose-length product was 154.36 mGy-cm. 100 mL Omnipaque 350 was given IV. Findings: VISUALIZED LOWER CHEST: Normal. Dilated lower esophagus with fluid content which may indicate reflux. UPPER ABDOMINAL ORGANS: Liver: Normal. Gallbladder: Normal. Spleen: Normal. Stomach/duodenum: Thickened wall of the stomach. Pancreas: Normal. Adrenals: Normal. Kidneys: Large simple cyst seen in the left lower pole measuring 4.7 cm. Small cyst in the midpole of the right kidney is also noted. PELVIC ORGANS: The bladder is underfilled with slightly thickened wall. Clinical correlation advised. BOWEL AND MESENTERY: Colon: No evidence of diverticulitis. Normal appendix. Small Bowel: Normal. No obstruction. Peritoneum/mesentery: No free air or free fluid. No mesenteric lymphadenopathy. RETROPERITONEUM: Mild atheromatous disease of the abdominal aorta. No retroperitoneal lymphadenopat hy. MUSCULOSKELETAL: Superficial soft tissues: The superficial soft tissues are normal. Bones: Age appropriate degenerative changes of the spine. IMPRESSION: 1. No evidence of appendicitis, diverticulitis or intestinal obstruction. 2. Large cyst in the left kidney lower pole. 3. Thickened wall of the stomach which may indicate gastritis. Reviewed, dictated and finalized at location A. [employer]ELOPER
--- NOTE | 2024-05-11 12:57 | ECG_ITS ---
Test Date: 2024-05-11 13:20:04 Measurements Intervals [place] Rate: 67 P: 76 PA: 163 QRS: 83 QRSD: 69 T: 71 QT: 369 QTc: 392 Interpretive Statements SINUS RHYTHM CANNOT R/O SEPTAL INFARCT, AGE INDETERMINATE ABNORMAL ECG Compared to ECG 02/09/2024 16:33:16 No significant changes Electronically Signed On 05-11-2024 13:31:53 MATTRESS STUFFER by Hossein Xie D.O.
[2024-05-11 13:36] LABS: Basophils Absolute Auto 0.1 K/mm3 (0.0-0.1); Basophils Percent Auto 0.7 % (0.2-1.2); Eosinophils Absolute Auto 0.1 K/mm3 (0-0.3); Eosinophils Percent Auto 1.4 % (0-4.4); Immature Granulocyte Absolute 0.02 K/mm3 (0.00-0.031); Immature Granulocyte Percent A 0.3 % (0-0.5); Lymphocytes Absolute Auto 2.08 K/mm3 (0.9-3.2); Lymphocytes Percent Auto 28.9 % (18.3-44.2); Mean Corpuscular HGB Conc 33.3 g/dl (32-36); Mean Corpuscular Hemoglobin 33.2 pg (26-34); Mean Corpuscular Volume 99.6 fl (80-100); Mean Platelet Volume 10.2 fl (7.4-10.4); Monocytes Absolute Auto 0.5 K/mm3 (0.1-0.6); Monocytes Percent Auto 7.2 % (2.6-8.5); Neutrophils Absolute Auto 4.4 K/mm3 (1.3-6.7); Neutrophils Percent Auto 61.5 % (45.5-73.1); Platelet Count Result 200 k/mm3 (150-375); Red Blood Count 4.52 M/mm3 (4.2-5.4); Red Cell Distribution Width 12.7 % (11.5-14.5); White Blood Count 7.2 K/mm3 (4.5-10.0)
[2024-05-11 13:48] LABS: Alanine Aminotransferase 17 U/L (6-35); Albumin Level 4.3 g/dL (3.5-5.1); Alkaline Phosphatase 75 U/L (38-126); Anion Gap 5 mmol/L (4-12); Aspartate Amino Transferase 27 U/L (14-36); Bilirubin,Total 0.5 mg/dL (0.2-1.3); Blood Urea Nitrogen 27 mg/dL (7-17); Carbon Dioxide 26 mmol/L (22-30); Chloride 108 mmol/L (98-107); Estimated CRCL calculation 37 ml/min; Estimated Glomerular Filt Rate > 60; Glucose 101 mg/dL (65-110); Potassium 4.1 mmol/L (3.4-5.0); Sodium 139 mmol/L (137-145)
[2024-05-11 14:15] LABS: Add Urine Microscopic? YES; Appearance Urine Turbid (Clear); Bacteria Urine None Seen /hpf; Bilirubin Urine Negative (Negative); Blood Urine Negative (Negative); Color Urine Yellow (Yellow); Glucose Urine UA Negative (Negative); Ketones Urine Negative (Negative); Leukocyte Esterase Ur 2+ LEU/UL (Negative); Nitrate Urine Negative (Negative); Non Pathogenic Casts 0-2; Protein Urine Negative (Negative); RBC Urine 0-2 /hpf (0-2); Specific Grav Ur 1.018 (1.001-1.035); Squamous Epithelial Cell Urine None Seen /hpf (Few); Urobilinogen Urine 0.2 mg/dL (<2.0); WBC Urine 0-5 /hpf (0-3)
--- NOTE | 2024-05-11 14:36 | ED_ITS ---
HPI - Weakness General Chief complaint: Weakness Stated complaint: weak Time Seen by Provider: 05/11/24 13:47 History of Present Illness HPI Narrative: 78-year-old female presenting with weakness and vomiting. Patient's family helps with the history. States that for the last 5-6 days she has been unable to keep down solids. She has been able to keep down some liquids. She has also been having diarrhea. Denies any pain. No dysuria or hematuria. They were concerned that she is dehydrated. Related Data Home Medications Medication Instructions Recorded Confirmed dexlansoprazole 60 mg 60 mg PO DAILY 12/05/22 10/29/23 capsule,biphase delayed release (Dexilant) alprazolam 0.25 mg tablet 0.25 mg PO DAILY 09/14/23 10/29/23 aspirin 81 mg tablet 81 mg PO DAILY 09/14/23 10/29/23 famotidine 40 mg/5 mL (8 mg/mL) 20 mg PO DAILY 02/21/24 oral suspension multivitamin (Daily Multi-Vitamin 1 tablet PO DAILY 02/21/24 tablet) Allergies Allergy/AdvReac Type Severity Reaction Status Date / Time No Known Allergies Allergy Verified 04/20/24 11:30 Review of Systems Review of Systems: All systems reviewed & are unremarkable except as noted in HPI and below PMFSH Past Medical History Medical History Achalasia Achalasia of cardia Age-related osteoporosis without current pathological fracture Anemia Anxiety Arthritis Cataracts, bilateral Cervical radiculitis Dementia Emphysema/COPD Endothelial corneal dystrophy Esophageal ulcer Gastro-esophageal reflux disease with esophagitis Gastrointestinal ulcer History of esophageal stricture HTN (hypertension), benign Near syncope Osteoporosis Other drug induced secondary Parkinsonism Overactive bladder Pheochromocytoma SVT (supraventricular tachycardia) Tobacco abuse counseling Uterine fibroid UTI (urinary tract infection) Surgical History Surgical History History of breast biopsy (~1997) left History of colonoscopy with polypectomy History of cornea transplant Left eye History of Descemet membrane endothelial keratoplasty (DMEK) History of esophageal dilatation History of esophageal surgery due to esophageal rupture 20+ yrs ago History of esophagogastroduodenoscopy (EGD) History of hysterectomy Hx of shoulder surgery lt shoulder Hx of tonsillectomy 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 Family lives across the street. She smokes a pack a day since age 18. Rare alcohol use. She is full code. She nominates her daughter to be the individual would make medical decisions for her if she is not able. Caffeine-coffee/soda Smoking packs per day: 1 Smoking cigarettes per day: 20.0 Years smoked: 60 Smoking pack-years: 60.00 Smoking status: Current every day smoker Tobacco type: cigarettes Additional smoking assessment comments: working on quitting Alcohol intake: never Substance use: never Substance use type: does not use Do You Feel Safe in your Home?: Yes Lack of Transportation: No Lack of Food: Never True Current Housing: I Have Housing Concerned About Future Housing: No Difficulty Paying Gas/Electric Bills: No Difficulty Paying for Meds: No Currently Unemployed: No Education: Bachelor's Degree Difficulty w/ Childcare or Family Care: No Living arrangements: with family Additional living arrangements comments: She states that she has a daughter and twin boys. But her live in their own home. Her daughter lives nearby. 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 Gender identity (if verbalized by the patient): Female Sexual Orientation (if Verbalized by the Patient): Straight or Heterosexual Spiritual care concerns: No Agree to blood products: No Exam Narrative: GENERAL: Nontoxic, in no acute distress, pleasant cooperative HEAD: Normocephalic, atraumatic. EYES: PERRLA and EOMI. ENT: Mucous membranes a bit dry NECK: Supple. CHEST: Clear to auscultation. No respiratory distress. HEART: Regular rate and rhythm ABDOMEN: Soft, + tender in left upper quadrant and epigastrium without guarding or rebound EXTREMITIES: Normal range of motion. SKIN: Warm, dry, no rash. NEURO: No focal deficits PSYCH: Normal mood and affect. Course Vital Signs Vital signs: Vital Signs Temperature 97.2 F L 05/11/24 11:25 Pulse Rate 112 H 05/11/24 11:25 Respiratory Rate 18 05/11/24 11:25 Blood Pressure 129/76 05/11/24 11:25 Pulse Oximetry 99 05/11/24 11:25 Temperature 97.2 F L 05/11/24 11:25 Pulse Rate 86 05/11/24 18:07 Respiratory Rate 16 05/11/24 18:07 Blood Pressure 130/67 05/11/24 18:07 Pulse Oximetry 98 05/11/24 18:07 Oxygen Delivery Room Air 05/11/24 14:00 MDM - Weakness MDM Narrative Medical decision making narrative: 78-year-old female presenting with nausea and vomiting. Vitals are stable. Exam remarkable for the above. Blood work with elevated BUN to creatinine ratio. IV fluids are ongoing. UA is unremarkable. CT abdomen pelvis with gastritis. Patient is given a dose of IV Pepcid as well as some fluids. She now feels hungry and she is tolerating p.o. intake. She would like to go home which I think is reasonable. Appropriate return precautions and follow-up d iscussed. Discharged in stable condition. Differential Diagnosis Differential diagnosis: Likely other (Nausea and vomiting, gastritis, gas troenteritis, dehydration) Medical Records Attestation: I reviewed the patient's medical records. Lab Data Attestation: I reviewed the patient's lab results. 05/11/24 13:18 05/11/24 13:18 Labs: Lab Results 05/11/24 05/11/24 05/11/24 Range/Units 13:18 13:57 14:53 WBC 7.2 (4.5-10.0) K/mm3 RBC 4.52 (4.2-5.4) M/mm3 Hgb 15.0 (12.0-15.0) g/dL Hct 45.0 (37.0-47.0) % MCV 99.6 (80-100) fl MCH 33.2 (26-34) pg MCHC 33.3 (32-36) g/dl RDW 12.7 (11.5-14.5) % Plt Count 200 (150-375) k/mm3 MPV 10.2 (7.4-10.4) fl Immature Gran % (Auto) 0.3 (0-0.5) % Neut % (Auto) 61.5 (45.5-73.1) % Lymph % (Auto) 28.9 (18.3-44.2) % [place] % (Auto) 7.2 (2.6-8.5) % Eos % (Auto) 1.4 (0-4.4) % Baso % (Auto) 0.7 (0.2-1.2) % Lymph # (Auto) 2.08 (0.9-3.2) K/mm3 [place] # (Auto) 0.5 (0.1-0.6) K/mm3 Eos # (Auto) 0.1 (0-0.3) K/mm3 Baso # (Auto) 0.1 (0.0-0.1) K/mm3 Abs Immat Gran (auto) 0.02 (0.00-0.031) K/mm3 Absolute Neuts (auto) 4.4 (1.3-6.7) K/mm3 Absolute Nucleated RBC 0.000 (0.0-0.012) K/mm3 Nucleated RBC % 0.0 (0.0-0.2) % Sodium 139 (137-145) mmol/L Potassium 4.1 (3.4-5.0) mmol/L Chloride 108 H (98-107) mmol/L Carbon Dioxide 26 (22-30) mmol/L Anion Gap 5 (4-12) mmol/L BUN 27 H (7-17) mg/dL Creatinine 0.80 (0.7-1.0) mg/dL Estim Creat Clear Calc 37 ml/min Estimated GFR > 60 (59 - ) Glucose 101 (65-110) mg/dL Lactic Acid 0.7 (0.7-2.0) mmol/L Calcium 10.0 (8.4-10.2) mg/dL Total Bilirubin 0.5 (0.2-1.3) mg/dL AST 27 (14-36) U/L ALT 17 (6-35) U/L Alkaline Phosphatase 75 (38-126) U/L Total Protein 7.0 (6.3-8.2) g/dL Albumin 4.3 (3.5-5.1) g/dL Lipase 116 (23-300) U/L Urine Color Yellow (Yellow) Urine Appearance Turbid H (Clear) Urine pH 8.0 (5.0-9.0) Ur Specific [place] 1.018 (1.001-1.035) Urine Protein Negative (Negative) mg/dL Urine Glucose (UA) Negative (Negative) mg/dL Urine Ketones Negative (Negative) mg/dL Ur Blood (Man) Negative (Negative) Urine Nitrate Negative (Negative) Urine Bilirubin Negative (Negative) Urine Urobilinogen 0.2 (<2.0) mg/dL Leukocyte Esterase Rfl 2+ H (Negative) LILIAN/UL Urine RBC 0-2 (0-2) /hpf Urine WBC 0-5 (0-3) /hpf Ur Squamous Epith Cells None seen (Few) /hpf Urine Bacteria None seen /hpf Urine Casts 0-2 Imaging Data Radiologist's impression: ITS Impressions Chest X-Ray 05/11/24 13:38 IMPRESSION: 1. No acute cardiopulmonary disease. Abdomen/Pelvis CT 05/11/24 15:09 IMPRESSION: 1. No evidence of appendicitis, diverticulitis or intestinal obstruction. 2. Large cyst in the left kidney lower pole. 3. Thickened wall of the stomach which may indicate gastritis. Critical Care Time Critical Care Time Critical Care Time: No Discharge Plan Discharge Clinical Impression: Nausea & vomiting, Dehydration, Gastritis Patient Disposition: Home, Self-Care Condition: Stable Instructions: Antibiotic Form, Gastritis (DC) Additional Instructions: We have treated you for nausea and vomiting today. Your blood work showed dehydration and you received IV fluids. The CT scan shows gastritis. Please continue taking your daily famotidine. You were able to eat/drink while here and are safe to go home. Follow-up closely with your PCP. If your symptoms worsen or other concerning symptoms arise, please return to the ER. Prescriptions: No Action dexlansoprazole [Dexilant] 60 mg capsule,biphase delayed releas 60 mg PO DAILY famotidine 40 mg/5 mL (8 mg/mL) suspension for reconstitution 20 mg PO DAILY multivitamin [Daily Multi-Vitamin] Tablet 1 tablet PO DAILY alprazolam 0.25 mg Tablet 0.25 mg PO DAILY aspirin 81 mg Tablet 81 mg PO DAILY ondansetron 4 mg tablet,disintegrating 4 mg PO Q8H PRN (Reason: nausea and vomiting) Qty: 20 0RF sertraline [Zoloft] 100 mg tablet 100 mg PO DAILY Qty: 90 1RF Follow-up/Referrals: Zacarias Avitia MD [Primary Care Provider] -
[2024-05-11] MEDS: SODIUM CHLORIDE 0.9% IV 1,000 ML 999 ML IV CONT (14:45)
[2024-05-11 15:10] LABS: Lactic Acid Reflex 0.7 mmol/L (0.7-2.0)
[2024-05-11 15:12] LABS: Lipase 116 U/L (23-300)
[2024-05-11] MEDS: FAMOTIDINE 20 MG/2 ML VIAL IV PUSH (17:56)
--- NOTE | 2024-05-11 18:35 | PC.NURSE ---
Pt tolerated PO challenge well. Denies abd pain/ nausea. Md made aware.
== END 2024-05-11 19:20 | disposition home or self-care (01) ==
PROVIDERS: Emergency Provider Emergency Medicine; PCP Family Medicine
DX: R11.2 Nausea with vomiting, unspecified (principal); E86.0 Dehydration; K29.70 Gastritis, unspecified, without bleeding; F17.210 Nicotine dependence, cigarettes, uncomplicated; M81.0 Age-related osteoporosis without current pathological fracture; D64.9 Anemia, unspecified; M19.90 Unspecified osteoarthritis, unspecified site; F41.9 Anxiety disorder, unspecified; F03.90 Unspecified dementia, unspecified severity, without behavioral disturbance, psychotic disturbance, mood disturbance, and anxiety; J44.9 Chronic obstructive pulmonary disease, unspecified; I10 Essential (primary) hypertension; Z87.440 Personal history of urinary (tract) infections
CPT/HCPCS: 36415; 71046; 74177; 80053; 81001; 83605; 83690; 85025; 87086; 93005; 96361; 96374; 99284; J7030; Q9967

== ENCOUNTER 2025-01-21 12:41 | Emergency (ER) | payer MEDICARE, SELFPAY ==
[2025-01-21] VITALS (27 sets, daily range): BP systolic 139–172; BP diastolic 57–152; PULSE 65–95; RESP 14–21; TEMP 36.2; O2SAT 86–100
--- NOTE | ~2025-01-21 | CT_ITS ---
CLINICAL INDICATION: Nausea and vomiting. History of achalasia COMPARISON: 05/11/2024. TECHNIQUE: Multiple contiguous axial images of the abdomen and pelvis were performed following the ad ministration of with 100 mL Omnipaque-350 intravenous contrast The dose-length product (DLP) was 161.46 mGy-cm. Automated exposure control and iterative reconstruction technique were employed. FINDINGS/OBSERVATIONS: Visualized lower thorax: The bilateral lung bases are clear. The heart is of normal size, with a small pericardial effusion. Liver: The liver demonstrates homogeneous enhancement and is not enlarged. Gallbladder and biliary system: The gallbladder is only minimally distended, and otherwise unremarkable. Pancreas: The pancreas enhances homogeneously without ductal dilatation. Spleen: The spleen enhances homogeneously and is not enlarged. Kidneys: Redemonstration of a well-circumscribed focus of fluid attenuation within the lower pole of the left kidney measuring 5.7 x 5.5 x 5.4 cm (anterior to posterior x medial to lateral x cranial to caudal dimension), increased in size from previous examination when it measured 5.2 x 5.4 x 5.1 cm (a nterior to posterior x medial to lateral x cranial to caudal dimension). The remainder of the bilateral kidneys otherwise enhance symmetrically without hydronephrosis or elisa l calculi. Adrenal glands: Unremarkable. Gastrointestinal tract: The distal esophagus is distended with fluid measuring 22 x 26 mm (anterior t o posterior by medial to lateral), decreased in size from previous examination performed 05/11/2024 w hen it measured 27 x 26 mm (anterior to posterior by medial to lateral). Edematous mural thickening is identified within the cecum, extending to the rectum, without dilatatio n. Colonic diverticulosis is identified without surrounding inflammatory change. Appendix: The air-filled appendix is of normal caliber (axial series, images 109 through 124). Vasculature: Bulky calcifications within the distal abdominal aorta which is markedly narrowed, largely unchanged from previous examination dated 05/11/2024. The caliber of the distal abdominal aorta measures 7.2 x 7.5 mm (anterior to posterior x medial to lateral dimension). Lymph nodes: No pathologically enlarged or morphologically suspicious lymph nodes within the retroperitoneum or at the root of the mesentery. Pelvic structures: The bladder is only minimally distended, limiting its evaluation. The uterus is either surgically absent or markedly atrophic. Body wall and musculoskeletal: Small fat-containing umbilical hernia. Trace degenerative disease within the lumbosacral spine. IMPRESSION: Fluid distention of the distal esophagus, decreased in caliber from previous examination performed . Findings suggesting a pancolitis, for which clinical correlation is needed. Increase in size of a fluid attenuation focus within the lower pole of the left kidney, as detailed a norbert. Reviewed, dictated and finalized at location A. IMPRESSION: Fluid distention of the distal esophagus, decreased in caliber from previous ex amination performed 05/11/2024. Findings suggesting a pancolitis, for which clinical correlation is needed. Increase in size of a fluid attenuation focus within the lower pole of the left kidney, as detailed above.
[2025-01-21] MEDS: ONDANSETRON INJ 4 MG/2 ML VIAL IV PUSH ×2 (13:09→15:42)
[2025-01-21 13:24] LABS: Hematocrit 49.2 % (37.0-47.0); Hemoglobin 16.3 g/dL (12.0-15.0); Immature Granulocyte Percent A 0.4 % (0-0.5); Lymphocytes Absolute Auto 1.53 K/mm3 (0.9-3.2); Mean Corpuscular HGB Conc 33.1 g/dl (32-36); Mean Corpuscular Hemoglobin 31.7 pg (26-34); Mean Corpuscular Volume 95.5 fl (80-100); Nucleated Red Blood Cells Absolute Auto 0.000 K/mm3 (0.0-0.012); Nucleated Red Blood Cells Perc 0.0 % (0.0-0.2); Platelet Count Result 291 k/mm3 (150-375); Red Blood Count 5.15 M/mm3 (4.2-5.4); White Blood Count 7.2 K/mm3 (4.5-10.0)
--- NOTE | 2025-01-21 14:30 | ED_ITS ---
HPI - Nausea/Vomiting/Diarrhea General Chief complaint: Nausea/Vomiting/Diarrhea Stated complaint: n/v Time Seen by Provider: 01/21/25 14:14 History of Present Illness HPI Narrative: This is a 79-year-old female with history of achalasia who presents the ED for nausea, vomiting since last night. Patient states that she is welcome to a.m. with nausea vomiting. She denies any abdominal pain, diarrhea. Denies fevers, chills. She states that she did have a scope with GI week ago that showed no constrictions. She has not tried eating or drinking anything. Last bowel movement was this morning and was normal. Related Data Home Medications ?Medication ?Instructions ?Recorded ?Confirmed ?Last Taken ?Type dexlansoprazole 60 mg 60 mg PO DAILY 12/05/22 10/29/23 Unknown History capsule,biphase delayed release (Dexilant) alprazolam 0.25 mg tablet 0.25 mg PO DAILY 09/14/23 10/29/23 Unknown History aspirin 81 mg tablet 81 mg PO DAILY 09/14/23 10/29/23 Unknown History famotidine 40 mg/5 mL (8 mg/mL) 20 mg PO DAILY 02/21/24 Unknown History oral suspension multivitamin (Daily Multi-Vitamin 1 tablet PO DAILY 02/21/24 Unknown History tablet) Allergies Allergy/AdvReac Type Severity Reaction Status Date / Time No Known Allergies Allergy Verified 01/21/25 12:41 Review of Systems 2 Review of Systems: Gen.: Denies fevers or chills Eyes: Denies eye pain or visual change ENT: Denies congestion Respiratory: Denies shortness of breath or cough CV: Denies chest pain or palpitations GI: Denies abdominal pain or diarrhea denies burning, urgency, frequency or hematuria Musculoskeletal: Denies back pain or muscle pain Neuro: Denies numbness, tingling, weakness or focal weakness Skin: Denies rash Except as documented, all other systems reviewed and negative [facility] Past Medical History Medical History Emphysema/COPD Near syncope Tobacco abuse counseling Anemia SVT (supraventricular tachycardia) Achalasia Dementia Osteoporosis Pheochromocytoma History of esophageal stricture Anxiety Esophageal ulcer Arthritis UTI (urinary tract infection) Uterine fibroid Gastrointestinal ulcer Cataracts, bilateral Achalasia of cardia Age-related osteoporosis without current pathological fracture Cervical radiculitis Endothelial corneal dystrophy Gastro-esophageal reflux disease with esophagitis HTN (hypertension), benign Other drug induced secondary Parkinsonism Overactive bladder Surgical History Surgical History History of Descemet membrane endothelial keratoplasty (DMEK) History of colonoscopy with polypectomy History of cornea transplant Left eye History of esophagogastroduodenoscopy (EGD) History of breast biopsy (~1997) left 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 Family lives across the street. She smokes a pack a day since age 18. Rare alcohol use. She is full code. She nominates her daughter to be the individual would make medical decisions for her if she is not able. Caffeine-coffee/soda Smoking packs per day: 1 Smoking cigarettes per day: 20.0 Years smoked: 60 Smoking pack-years: 60.00 Smoking status: Current every day smoker Tobacco type: cigarettes Additional smoking assessment comments: working on quitting Alcohol intake: never Substance use: never Substance use type: does not use Do You Feel Safe in your Home?: Yes Lack of Transportation: No Lack of Food: Never True Current Housing: I Have Housing Concerned About Future Housing: No Difficulty Paying Gas/Electric Bills: No Difficulty Paying for Meds: No Currently Unemployed: No Education: Bachelor's Degree Difficulty w/ Childcare or Family Care: No Living arrangements: with family Additional living arrangements comments: She states that she has a daughter and twin boys. But her live in their own home. Her daughter lives nearby. 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 Gender identity (if verbalized by the patient): Female Sexual Orientation (if Verbalized by the Patient): Straight or Heterosexual Spiritual care concerns: No Agree to blood products: No Exam 2 Narrative: APPEARANCE: No acute distress, nontoxic, resting in bed EYES: EOMI HEENT: Normocephalic, atraumatic, mucous membranes dry RESPIRATORY: No respiratory distress Clear to auscultation bilaterally with no rhonchi wheezing or rales. CARDIOVASCULAR: Regular rate and rhythm without murmurs rubs or gallops. ABDOMINAL: Soft, nontender, nondistended, no rebound or guarding MUSCULOSKELETAl: Moves all extremities. No clubbing, cyanosis or edema. NEURO: Awake and alert. Following commands, speech normal, no focal deficits SKIN:: Warm, dry. No rashes lesions or abrasions PSYCHIATRIC: Normal affect/mood, Course Vital Signs Vital signs: Vital Signs Temperature 97.2 F L 01/21/25 12:49 Pulse Rate 78 01/21/25 12:49 Respiratory Rate 21 H 01/21/25 12:49 Blood Pressure 149/67 H 01/21/25 12:49 Pulse Oximetry 99 01/21/25 12:49 Oxygen Delivery Room Air 01/21/25 12:49 Temperature 97.2 F L 01/21/25 12:49 Pulse Rate 65 01/21/25 16:51 Respiratory Rate 14 01/21/25 16:51 Blood Pressure 144/57 H 01/21/25 16:51 Pulse Oximetry 97 01/21/25 16:51 Oxygen Delivery Room Air 01/21/25 12:49 MDM - Nausea/Vomiting/Diarrhea MDM Narrative Medical decision making narrative: 79-year-old female with history of achalasia presenting with nausea and vomiting since last night. Initial vital stable. She had no abdominal tenderness to palpation. Labs showed a mild metabolic alkalosis likely consistent with dehydration. She was given 1 L NS bolus and Zofran x2 with improvement of her symptoms. We did try a p.o. challenge which she initially tolerated, however, just before discharge she threw up again. I did reach out to Dr. Tejada, who recommended that she be transferred to another facility as she has already failed outpatient therapy such as mitral and injections. I spoke with Dr. Joe at [facility] direct admit. Of note, UA did show 2+ bacteria but patient is asymptomatic at this time so I elected not to treat her for that. Differential Diagnosis Differential diagnosis: Likely gastroenteritis, dehydration and other (achalasia, food impaction) Lab Data Attestation: I reviewed the patient's lab results. 01/21/25 13:07 01/21/25 14:23 Labs: Lab Results 01/21/25 01/21/25 Range/Units 13:07 14:23 WBC 7.2 (4.5-10.0) K/mm3 RBC 5.15 (4.2-5.4) M/mm3 Hgb 16.3 H (12.0-15.0) g/dL Hct 49.2 H (37.0-47.0) % MCV 95.5 (80-100) fl MCH 31.7 (26-34) pg MCHC 33.1 (32-36) g/dl RDW 12.5 (11.5-14.5) % Plt Count 291 (150-375) k/mm3 MPV 9.4 (7.4-10.4) fl Immature Gran % (Auto) 0.4 (0-0.5) % Neut % (Auto) 73.6 H (45.5-73.1) % Lymph % (Auto) 21.2 (18.3-44.2) % [place] % (Auto) 3.5 (2.6-8.5) % Eos % (Auto) 0.6 (0-4.4) % Baso % (Auto) 0.7 (0.2-1.2) % Lymph # (Auto) 1.53 (0.9-3.2) K/mm3 [place] # (Auto) 0.3 (0.1-0.6) K/mm3 Eos # (Auto) 0.0 (0-0.3) K/mm3 Baso # (Auto) 0.1 (0.0-0.1) K/mm3 Abs Immat Gran (auto) 0.03 (0.00-0.031) K/mm3 Absolute Neuts (auto) 5.3 (1.3-6.7) K/mm3 Absolute Nucleated RBC 0.000 (0.0-0.012) K/mm3 Nucleated RBC % 0.0 (0.0-0.2) % Sodium 140 (137-145) mmol/L Potassium 4.1 (3.4-5.0) mmol/L Chloride 106 (98-107) mmol/L Carbon Dioxide 20 L (22-30) mmol/L Anion Gap 14 H (4-12) mmol/L BUN 19 H (7-17) mg/dL Creatinine 0.83 (0.7-1.0) mg/dL Estim Creat Clear Calc 37 ml/min Estimated GFR > 60 (59 - ) Glucose 169 H (65-110) mg/dL Calcium 10.6 H (8.4-10.2) mg/dL Total Bilirubin 1.0 (0.2-1.3) mg/dL AST 37 H (14-36) U/L ALT 22 (6-35) U/L Alkaline Phosphatase 109 (38-126) U/L Total Protein 8.2 (6.3-8.2) g/dL Albumin 4.8 (3.5-5.1) g/dL Lipase 67 (23-300) U/L Urine Color Yellow (Yellow) Urine Appearance Clear (Clear) Urine pH 6.0 (5.0-9.0) Ur Specific [place] > 1.030 (1.001-1.035) Urine Protein 2+ H (Negative) mg/dL Urine Glucose (UA) Negative (Negative) mg/dL Urine Ketones 3+ H (Negative) mg/dL Ur Blood (Man) Negative (Negative) Urine Nitrate Negative (Negative) Urine Bilirubin 2+ H (Negative) Urine Urobilinogen 1.0 (<2.0) mg/dL Leukocyte Esterase Rfl Negative (Negative) LILIAN/UL Urine RBC 0-2 (0-2) /hpf Urine WBC 0-3 (0-3) /hpf Urine Bacteria 2+ H (None) /hpf Discharge Plan Discharge Clinical Impression: Gastroenteritis, Achalasia Patient Disposition: Home Condition: Stable Instructions: Antibiotic Form, Acute Nausea and Vomiting (DC) Patient Language: Lithuanian Prescriptions: New ondansetron 4 mg tablet,disintegrating 4 mg PO Q8H PRN (Reason: nausea and vomiting) Qty: 14 0RF No Action dexlansoprazole [Dexilant] 60 mg capsule,biphase delayed releas 60 mg PO DAILY famotidine 40 mg/5 mL (8 mg/mL) suspension for reconstitution 20 mg PO DAILY multivitamin [Daily Multi-Vitamin] Tablet 1 tablet PO DAILY alprazolam 0.25 mg Tablet 0.25 mg PO DAILY aspirin 81 mg Tablet 81 mg PO DAILY ondansetron 4 mg tablet,disintegrating 4 mg PO Q8H PRN (Reason: nausea and vomiting) Qty: 20 0RF sertraline [Zoloft] 100 mg tablet 100 mg PO DAILY Qty: 90 1RF Follow-up/Referrals: Zacarias Avitia MD [Primary Care Provider] -
[2025-01-21 14:39] LABS: Add Urine Microscopic? YES
[2025-01-21 14:40] LABS: Appearance Urine Clear (Clear); Glucose Urine UA Negative (Negative); Specific Grav Ur > 1.030 (1.001-1.035)
[2025-01-21 14:41] LABS: Leukocyte Esterase Ur Negative LEU/UL (Negative); Nitrate Urine Negative (Negative)
[2025-01-21 14:50] LABS: Alanine Aminotransferase 22 U/L (6-35); Albumin Level 4.8 g/dL (3.5-5.1); Alkaline Phosphatase 109 U/L (38-126); Anion Gap 14 mmol/L (4-12); Aspartate Amino Transferase 37 U/L (14-36); Bilirubin,Total 1.0 mg/dL (0.2-1.3); Blood Urea Nitrogen 19 mg/dL (7-17); Calcium 10.6 mg/dL (8.4-10.2); Carbon Dioxide 20 mmol/L (22-30); Chloride 106 mmol/L (98-107); Estimated CRCL calculation 37 ml/min; Estimated Glomerular Filt Rate > 60; Glucose 169 mg/dL (65-110); Lipase 67 U/L (23-300); Potassium 4.1 mmol/L (3.4-5.0); Sodium 140 mmol/L (137-145); Total Protein 8.2 g/dL (6.3-8.2)
[2025-01-21] MEDS: SODIUM CHLORIDE 0.9% IV 1,000 ML 999 ML IV CONT (15:20)
[2025-01-21] MEDS: SODIUM CHLORIDE 0.9% IV 1,000 ML 90 ML IV CONT (19:08)
[2025-01-21] MEDS: FAMOTIDINE 20 MG/2 ML VIAL IV PUSH (20:48)
== END 2025-01-22 01:03 | disposition short-term general hospital (02) ==
PROVIDERS: Emergency Medicine; Emergency Provider Student in an Organized Health Care Education/Training Program; PCP Family Medicine
DX: K52.9 Noninfective gastroenteritis and colitis, unspecified (principal); K22.0 Achalasia of cardia; F03.90 Unspecified dementia, unspecified severity, without behavioral disturbance, psychotic disturbance, mood disturbance, and anxiety; J43.9 Emphysema, unspecified; K21.00 Gastro-esophageal reflux disease with esophagitis, without bleeding; N32.81 Overactive bladder; G21.19 Other drug induced secondary parkinsonism; M19.90 Unspecified osteoarthritis, unspecified site; M81.0 Age-related osteoporosis without current pathological fracture; F41.9 Anxiety disorder, unspecified; F17.210 Nicotine dependence, cigarettes, uncomplicated; Z87.440 Personal history of urinary (tract) infections; Z86.0100 Personal history of colon polyps, unspecified; Z90.710 Acquired absence of both cervix and uterus; Z79.82 Long term (current) use of aspirin; Z79.899 Other long term (current) drug therapy
CPT/HCPCS: 36415; 74177; 80053; 81001; 83690; 85025; 96361; 96374; 96375; 96376; 99284; J2405; J7030; Q9967